=== PATIENT | female | born 1950 | race Caucasian/White ===

== ENCOUNTER → 2020-03-26 15:54 | Outpatient (BNVA) | payer MEDICARE, OTHER, SELFPAY | PROVIDERS: Family Provider Nurse Practitioner Family; PCP Nurse Practitioner Family; Visit Provider Nurse Practitioner Family | DX: I10 Essential (primary) hypertension (principal); E78.5 Hyperlipidemia, unspecified; M79.7 Fibromyalgia; G25.81 Restless legs syndrome; G25.0 Essential tremor; N32.81 Overactive bladder; G47.00 Insomnia, unspecified; J45.20 Mild intermittent asthma, uncomplicated; L72.3 Sebaceous cyst | CPT/HCPCS: 80053; 80061; 84443; 85025 ==

== ENCOUNTER → 2020-04-13 10:18 | Outpatient (BNVA) | payer MEDICARE, OTHER, SELFPAY | PROVIDERS: Family Provider Nurse Practitioner Family; PCP Nurse Practitioner Family; Visit Provider Nurse Practitioner Family | DX: R73.9 Hyperglycemia, unspecified (principal); R74.0 Nonspecific elevation of levels of transaminase and lactic acid dehydrogenase [LDH]; Z11.59 Encounter for screening for other viral diseases | CPT/HCPCS: 83036; 86705; 86706; 86709; 86803; 87340 ==

== ENCOUNTER 2020-05-01 09:12 | Outpatient (CLI) | payer MEDICARE, OTHER, SELFPAY ==
--- NOTE | 2020-05-01 09:30 | US_ITS ---
WS: [id number] ULTRASOUND ABDOMEN CLINICAL INFORMATION: elevated LFT COMPARISON: None. FINDINGS: Liver Size: Enlarged Craniocaudal length: 17.4 cm. Echogenicity: Fatty Surface nodularity: None. Mass (size and location): None. Bile ducts Intrahepatic ducts: Normal. Common bile duct diameter: 0.7 cm. Gallbladder Removed Pancreas Normal as visualized. Right kidney: Normal. Hydronephrosis: None. Size: 9.3 cm x 4.5 cm x 5.0 cm Abdominal aorta and IVC Visualized portions are normal. Ascites: None. US/US liver [id number] IMPRESSION: 1. Hepatomegaly with diffuse fatty infiltration. 2. Gallbladder has been removed. 3. Normal common bile duct. 4. No hydronephrosis in right kidney.
== END 2020-05-01 09:13 | disposition home or self-care (01) ==
LOC: RAD 09:13
PROVIDERS: PCP Nurse Practitioner Family; Visit Provider Nurse Practitioner Family
DX: R94.5 Abnormal results of liver function studies (principal); R16.0 Hepatomegaly, not elsewhere classified; K76.0 Fatty (change of) liver, not elsewhere classified; Z90.49 Acquired absence of other specified parts of digestive tract
CPT/HCPCS: 76705

== ENCOUNTER → 2020-05-17 10:27 | Outpatient (BNVA) | payer MEDICARE, OTHER, SELFPAY | PROVIDERS: PCP Nurse Practitioner Family; Visit Provider Nurse Practitioner Family | DX: R16.0 Hepatomegaly, not elsewhere classified (principal); K76.0 Fatty (change of) liver, not elsewhere classified | CPT/HCPCS: 80053; 82977 ==

== ENCOUNTER → 2020-07-17 08:38 | Outpatient (BNVA) | payer MEDICARE, OTHER, SELFPAY | PROVIDERS: PCP Nurse Practitioner Family; Visit Provider Nurse Practitioner Family | DX: E11.9 Type 2 diabetes mellitus without complications (principal); E78.5 Hyperlipidemia, unspecified; J45.20 Mild intermittent asthma, uncomplicated; I10 Essential (primary) hypertension; M79.7 Fibromyalgia; N32.81 Overactive bladder; G47.00 Insomnia, unspecified; G25.81 Restless legs syndrome; G25.0 Essential tremor; Z12.31 Encounter for screening mammogram for malignant neoplasm of breast; F41.9 Anxiety disorder, unspecified; F32.9 Major depressive disorder, single episode, unspecified; L72.3 Sebaceous cyst; R16.0 Hepatomegaly, not elsewhere classified | CPT/HCPCS: 80053; 80061; 83036; 84443; 85025 ==

== ENCOUNTER → 2020-09-28 10:40 | Outpatient (BNVA) | payer MEDICARE, OTHER, SELFPAY | PROVIDERS: PCP Nurse Practitioner Family; Visit Provider Nurse Practitioner Family | DX: E11.9 Type 2 diabetes mellitus without complications (principal); G47.00 Insomnia, unspecified; N32.81 Overactive bladder; G25.81 Restless legs syndrome; G25.0 Essential tremor; M79.7 Fibromyalgia; E78.5 Hyperlipidemia, unspecified; I10 Essential (primary) hypertension; J45.20 Mild intermittent asthma, uncomplicated; L72.3 Sebaceous cyst; R16.0 Hepatomegaly, not elsewhere classified; K76.0 Fatty (change of) liver, not elsewhere classified; F41.9 Anxiety disorder, unspecified; F32.9 Major depressive disorder, single episode, unspecified; Z12.31 Encounter for screening mammogram for malignant neoplasm of breast; G47.33 Obstructive sleep apnea (adult) (pediatric) | CPT/HCPCS: 80053; 80061; 84443; 85025 ==

== ENCOUNTER → 2020-12-26 09:42 | Outpatient (BNVA) | payer MEDICARE, OTHER, SELFPAY | PROVIDERS: PCP Nurse Practitioner Family; Visit Provider Nurse Practitioner Family | DX: E11.9 Type 2 diabetes mellitus without complications (principal); E78.5 Hyperlipidemia, unspecified; I10 Essential (primary) hypertension; J45.20 Mild intermittent asthma, uncomplicated; G47.33 Obstructive sleep apnea (adult) (pediatric); G47.00 Insomnia, unspecified; N32.81 Overactive bladder; G25.81 Restless legs syndrome; G25.0 Essential tremor; M79.7 Fibromyalgia; Z13.6 Encounter for screening for cardiovascular disorders; F41.9 Anxiety disorder, unspecified; F32.9 Major depressive disorder, single episode, unspecified; R16.0 Hepatomegaly, not elsewhere classified; K76.0 Fatty (change of) liver, not elsewhere classified | CPT/HCPCS: 80053; 80061; 83036; 84443; 85025 ==

== ENCOUNTER → 2021-04-09 11:55 | Outpatient (BNVA) | payer MEDICARE, OTHER, SELFPAY | PROVIDERS: PCP Nurse Practitioner Family; Visit Provider Nurse Practitioner Family | DX: E11.9 Type 2 diabetes mellitus without complications (principal); E78.5 Hyperlipidemia, unspecified; I10 Essential (primary) hypertension; M79.7 Fibromyalgia; N32.81 Overactive bladder | CPT/HCPCS: 80053; 80061; 83036; 84443; 85025 ==

== ENCOUNTER → 2021-05-08 13:34 | Outpatient (BNVA) | payer MEDICARE, OTHER, SELFPAY | PROVIDERS: PCP Nurse Practitioner Family; Referring Provider Nurse Practitioner Family; Visit Provider Podiatrist Foot & Ankle Surgery | DX: M79.673 Pain in unspecified foot (principal); M21.612 Bunion of left foot | CPT/HCPCS: 73630 ==

== ENCOUNTER → 2021-06-05 15:58 | Outpatient (BNVA) | payer MEDICARE, OTHER, SELFPAY | PROVIDERS: PCP Nurse Practitioner Family; Visit Provider Nurse Practitioner Family | DX: K76.0 Fatty (change of) liver, not elsewhere classified (principal) | CPT/HCPCS: 80053; 85025 ==

== ENCOUNTER 2021-06-13 06:29 | Observation (INO) | payer MEDICARE, OTHER, SELFPAY ==
[2021-06-13] VITALS (8 sets, daily range): BP systolic 125–159; BP diastolic 71–87; PULSE 73–90; RESP 15–18; TEMP 36.2–36.8; O2SAT 94–98; BMI 29.2
--- NOTE | 2021-06-13 06:35 | XRR_ITS ---
PROCEDURE INFORMATION: Exam: XR Chest Exam date and time: 06/13/2021 6:35 AM Age: 70 years old Clinical indication: Chest wall pain; Patient HX: Chest pain off and on this am TECHNIQUE: Imaging protocol: XR of the chest. Views: 1 view. COMPARISON: CR Chest 2 views* [id number] 06/26/2014 12:10 PM FINDINGS: Lungs: Unremarkable. No consolidation. Pleural spaces: Unremarkable. No pleural effusion. No pneumothorax. Heart/Mediastinum: Unremarkable. No cardiomegaly. Bones/joints: Unremarkable. XR/XR chest 1V portable [id number] IMPRESSION: No acute findings. Radiation Dose CTDIVOL = (mGy): DLP = (mGy-cm)
--- NOTE | 2021-06-13 06:35 | ECG_ITS ---
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 Measurements Intervals [place] Rate: 79 P: 59 [place]: 166 QRS: 73 QRSD: 100 T: 62 QT: 403 QTc: 465 Interpretive Statements SINUS RHYTHM Compared to ECG 07/17/2017 09:11:07 ST (T wave) deviation no longer present Early repolarization no longer present Electronically Signed On 06-14-2021 9:38:23 CDT by Ivett Cabrera M.D. [email or web address].Insane Logic/store/[id number] f
--- NOTE | 2021-06-13 06:44 | W.ED.CHESTPA ---
HPI - Chest Pain General: Chief Complaint: Chest Pain Stated Complaint: CP Time Seen by Provider: 06/13/21 06:30 History of Present Illness: HPI narrative: 70-year-old female presents to the emergency room via EMS with a complaint of chest pain. She woke up sometime in the night with chest pain around 530 this morning called EMS. She did take a single sublingual nitro from her 's prescription which relieved the chest pain with a 5 to 10 minutes of her taking it. She was diaphoretic nauseous and short of breath with the pain radiated up into the left shoulder. On arrival here she is pain-free. She denies any recent episodes of chest pain or discomfort no known history of coronary artery disease she does have a history of hypertension hyperlipidemia and diabetes mellitus she was previously treated for diabetes with oral antihyperglycemic's but lost 50 pounds and was able to come off of those. She does not take aspirin daily. MD complaint: chest pain and chest heaviness Pertinent past history: other (Hypertension diabetes mellitus hyperlipidemia) Onset (ago): hour(s) Timing of current episode: episodic and now resolved Onset: during rest Pain location: substernal and left chest Pain radiation: left shoulder Quality: sharp Relieving factors: nitroglycerin Exacerbating factors: nothing Associated symptoms: Reports diaphoresis, dyspnea and nausea; Deny abdominal pain, fever(s), leg edema, palpitations, sense of impending doom, syncope or vomiting Treatment prior to arrival: aspirin, nitroglycerin and oxygen Review of Systems Const: Reports: diaphoresis; Denies: fever(s) ENMT: Denies: throat pain, ear or mastoid pain, nasal discharge or nasal congestion Card: Denies: palpitations or syncope Resp: Reports: dyspnea GI: Reports: nausea; Denies: abdominal pain or vomiting : Denies: flank pain, difficulty voiding, dysuria, urinary frequency or urinary urgency Skin/Breast: Denies: rash or pruritus PFSH ED PFSH: Medical History (Updated 06/13/21 @ 13:52 by Branden Masterson MD) Anxiety and depression Asthma Chronic kidney disease Environmental allergies Essential tremor Fatty liver Fibromyalgia Hepatomegaly Hyperlipidemia Hypertension Insomnia Osteoarthritis Overactive bladder Restless leg Surgical History H/O section S/P bilateral cataract extraction S/P carpal tunnel release S/P cholecystectomy S/P hysterectomy S/P knee replacement S/P nasal surgery Family History Brother Myocardial infarct Hypertension Father Myocardial infarct Hypertension Mother CHF (congestive heart failure) Hypertension Liver disease Cancer Social History Smoking and tobacco status: former smoker Alcohol intake: never Lives independently: Yes Household members: spouse Housing: House Marital status: Pets and animals: No Physical Exam Const: COMMON NORMALS: no acute distress GENERAL APPEARANCE: cooperative and comfortable ORIENTATION/CONSCIOUSNESS: Yes awake, Yes oriented to person, Yes oriented to place and Yes oriented to time HENMT: COMMON NORMALS: normocephalic, atraumatic and hearing grossly normal bilaterally HEAD & SCALP: normocephalic and atraumatic Neck/C-Spine: COMMON NORMALS: no JVD Resp: COMMON NORMALS: normal respiratory effort, No retractions, No use of accessory muscles and clear to auscultation bilaterally AUSCULTATION: clear to auscultation bilaterally Cardio: COMMON NORMALS: no JVD, regular rate, regular rhythm and No murmurs present (Cardio) RATE: regular rate RHYTHM: regular rhythm GI: COMMON NORMALS: Soft to palpation and No hepatosplenomegaly present AUSCULTATION: Yes normoactive bowel sounds PALPATION: Yes Soft to palpation, No Tenderness to palpation present (GI), No Guarding due to palpation present (GI) and Yes No hepatosplenomegaly present Extremity: COMMON NORMALS: normal to inspection, capillary refill normal, no clubbing, cyanosis or edema, no calf tenderness and no pedal edema Neuro: SENSORIUM/ORIENTATION: Yes oriented to person, Yes oriented to place and Yes oriented to time Skin: COMMON NORMALS: no rashes or lesions noted GENERAL SKIN EXAM: no rashes or lesions noted Course Vital Signs: Vital signs: Vital Signs Temperature 97.5 F L 06/13/21 13:48 Pulse Rate 74 06/13/21 13:48 Respiratory Rate 15 06/13/21 13:48 Blood Pressure 125/71 06/13/21 13:48 Pulse Oximetry 98 06/13/21 13:48 MDM - Chest Pain MDM Narrative: Medical decision making narrative: Labs imaging and EKG reviewed as found on the chart. Chest pain relieved by nitro prior to arrival. Initial troponins negative EKG does not show any acute ST elevations. Working to go ahead and place patient on discussed with hospitalist orders written Lab Data: Labs: Lab Results 06/13/21 06/13/21 06/13/21 06:40 06:40 06:40 WBC 8.3 10^3/uL 10^3/ uL (4.0-10.0) RBC 4.99 10^6/uL 10^6 /uL (4.1-5.3) Hgb 15.3 g/dL g/dL (11.5-15.3) Hct 45.2 % % (37.0-47.0) MCV 90.6 fl fl (81-99) MCH 30.7 pg pg (28.0-34.0) MCHC 33.8 g/dL g/dL (30.0-36.0) RDW 13.1 % % (12.1-15.1) Plt Count 231 10^3/cmm 10^3 /cmm (130-400) MPV 9.5 fL fL (7.4-10.4) Neut % (Auto) 67.8 % % Lymph % (Auto) 19.5 % % [place] % (Auto) 9.2 % % Eos % (Auto) 2.3 % % Baso % (Auto) 0.6 % % Neut # (Auto) 5.65 10^3/uL 10^3 /uL (1.8-7.7) Lymph # (Auto) 1.6 10^3/uL 10^3/ uL (0.8-4.8) [place] # (Auto) 0.8 10^3/uL 10^3/ uL (0.2-0.9) Eos # (Auto) 0.2 10^3/uL 10^3/ uL (0.0-0.8) Baso # (Auto) 0.1 10^3/uL 10^3/ uL (0.0-0.1) Nucleated RBC % (a uto) 0 % % Nucleated RBCs # 0.0 /100WBC /100W BC Sodium 141 mmol/L mmol/L (136-145) Potassium 3.3 mmol/L L mmol /L (3.5-5.1) Chloride 101 mmol/L mmol/L (98-107) Carbon Dioxide 29 mmol/L mmol/L (22-29) Anion Gap 14.3 (5-19) BUN 14 mg/dL mg/dL (8-23) Creatinine 0.5 mg/dL mg/dL (0.5-0.9) GFR Calculation 122.3 mL/min mL/m in (90-130) Glucose 94 mg/dL mg/dL (65-115) POC Glucose Calculated Osmolal ity 292 mOsm/kg mOsm/ kg (285-295) Calcium 9.0 mg/dL mg/dL (8.5-10.5) Total Bilirubin 0.4 mg/dL mg/dL (0.15-1.2) AST 49 U/L H U/L (0-32) ALT 40 U/L H U/L (0-33) Alkaline Phosphata se 67 IU/L IU/L (35-105) Creatine Kinase 43 U/L U/L (26-192) Troponin T Baselin e 8 ng/L ng/L (0-10) Troponin T 120 Min [place] Troponin T Total Protein 7.0 g/dL g/dL (6.6-8.7) Albumin 4.0 g/dL g/dL (3.5-5.2) Globulin 3.0 g/dL g/dL (1.3-4.6) Urine Color Urine Appearance Urine pH Ur Specific Gravit y Urine Protein Urine Glucose (UA) Urine Ketones Urine Blood Urine Nitrate Urine Bilirubin Urine Urobilinogen Ur Leukocyte Nyasia ase 06/13/21 06/13/21 06/13/21 06:44 07:04 08:59 WBC RBC Hgb Hct MCV MCH MCHC RDW Plt Count MPV Neut % (Auto) Lymph % (Auto) [place] % (Auto) Eos % (Auto) Baso % (Auto) Neut # (Auto) Lymph # (Auto) [place] # (Auto) Eos # (Auto) Baso # (Auto) Nucleated RBC % (a uto) Nucleated RBCs # Sodium Potassium Chloride Carbon Dioxide Anion Gap BUN Creatinine GFR Calculation Glucose POC Glucose 98 mg/dL mg/dL (70-110) Calculated Osmolal ity Calcium Total Bilirubin AST ALT Alkaline Phosphata se Creatine Kinase Troponin T Baselin e Troponin T 120 Min [place] 6.23 ng/L ng/L (0-10) Delta Troponin T -1.77 ABS# L ABS# (0-10) Total Protein Albumin Globulin Urine Color Yellow (Yellow) Urine Appearance Clear (CLEAR) Urine pH 7 (5-7) Ur Specific Gravit y 1.010 (1.005-1.030) Urine Protein Neg (Negative) Urine Glucose (UA) Norm (Normal) Urine Ketones Negative (Negative) Urine Blood Neg (Negative) Urine Nitrate Negative (Negative) Urine Bilirubin Neg (Negative) Urine Urobilinogen Norm mg/dL mg/dL (Negative) Ur Leukocyte Nyasia ase Negative (Negative) Discharge Plan Discharge Patient Disposition: Placed in Observation Admit Provider: Branden Masterson Clinical Impression: Chest pain, Hypertension, Diabetes mellitus Coding Level of Care Code ED 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
[2021-06-13 06:46] LABS: Glucose Point of Care 98 mg/dL (70-110)
[2021-06-13 06:53] LABS: Basophils # 0.1 10^3/uL (0.0-0.1); Basophils % 0.6 %; Eosinophils # 0.2 10^3/uL (0.0-0.8); Eosinophils % 2.3 %; Hematocrit 45.2 % (37.0-47.0); Hemoglobin 15.3 g/dL (11.5-15.3); Lymphocytes # 1.6 10^3/uL (0.8-4.8); Lymphocytes % 19.5 %; Mean Corpuscular HGB Conc 33.8 g/dL (30.0-36.0); Mean Corpuscular Hemoglobin 30.7 pg (28.0-34.0); Mean Corpuscular Volume 90.6 fl (81-99); Mean Platelet Volume 9.5 fL (7.4-10.4); Monocytes # 0.8 10^3/uL (0.2-0.9); Monocytes % 9.2 %; Neutrophils # 5.65 10^3/uL (1.8-7.7); Neutrophils % 67.8 %; Nucleated Red Blood Cells % 0 %; Platelet Count 231 10^3/cmm (130-400); Red Blood Count 4.99 10^6/uL (4.1-5.3); Red Cell Distribution Width 13.1 % (12.1-15.1); White Blood Count 8.3 10^3/uL (4.0-10.0)
[2021-06-13 07:12] LABS: Alanine Aminotransferase 40 U/L (0-33); Alkaline Phosphatase 67 IU/L (35-105); Anion Gap 14.3 (5-19); Aspartate Amino Transferase 49 U/L (0-32); Blood Urea Nitrogen 14 mg/dL (8-23); Carbon Dioxide 29 mmol/L (22-29); Chloride 101 mmol/L (98-107); Creatine Phosphokinase 43 U/L (26-192); Creatinine Clr Calc Pharmacy 68.9111; Glomerular Filtration Rate 122.3 mL/min (90-130); Glucose 94 mg/dL (65-115); Osmolality Calculated 292 mOsm/kg (285-295); Potassium 3.3 mmol/L (3.5-5.1); Sodium 141 mmol/L (136-145); Total Bilirubin 0.4 mg/dL (0.15-1.2)
[2021-06-13 07:14] LABS: Troponin(5th) Baseline 8 ng/L (0-10)
[2021-06-13 07:42] LABS: Add Urine Microscopic? NO; Charge for UA Resulting for Rev
[2021-06-13 07:50] LABS: Bilirubin Urine Neg (Negative); Blood Urine Neg (Negative); Glucose Urine UA Norm (Normal); Ketones Urine Negative (Negative); Leukocyte Esterase Urine Negative (Negative); Nitrate Urine Negative (Negative); Protein Urine Neg (Negative); Urine Appearance Clear (CLEAR); Urine Color Yellow (Yellow); Urobilinogen Urine Norm (Negative); pH Urine 7 (5-7)
--- NOTE | 2021-06-13 08:35 | ECG_ITS ---
[facility] Test Date: 2021-06-13 Pat Name: Lisa Rivera Department: Room: Gender: Female Vp Scientific Affairs: : 1950 Requested By: Brett Shay Order Number: [id number] Maria Esther MD: Ivett Cabrera M.D. Measurements Intervals [place] Rate: 78 P: 70 AR: 176 QRS: 84 QRSD: 106 T: 69 QT: 415 QTc: 475 Interpretive Statements SINUS RHYTHM Compared to ECG 06/13/2021 06:33:42 No significant changes Electronically Signed On 06-14-2021 19:43:53 CDT by Ivett Cabrera M.D. [id number] f
[2021-06-13 09:41] LABS: Troponin 5 2HR 6.23 ng/L (0-10); Troponin 5 2HR Delta -1.77 ABS# (0-10)
--- NOTE | 2021-06-13 10:23 | PM.HP ---
Providers/Chief Complaint Primary Care Provider: MATTHEW Norman Chief Complaint: CP History of Present Illness Lisa Rivera is a 70 year old female who presents to the emergency department with chest discomfort. She states she was up during the night, went back to sleep, and was awoken with left-sided chest discomfort at 4- 5 AM. She states it was severe, nonradiating. She has not had discomfort like this before. Some nausea. Seem to improve with her 's nitroglycerin. Lasted approximately 1 hour. She reports she has no chest discomfort currently. Comments that she has quite a bit of stress taking care of her . No fever, history of Covid. She is vaccinated. No cough. No current shortness of breath. Occasional heartburn but nothing that is felt like this. She was given an aspirin in the emergency department. Review of Systems General: Reports: 10 or more systems reviewed and unremarkable except in HPI and below Const: Denies: fever(s) or chills Eyes: Denies: change in vision ENMT: Denies: throat pain Card: Reports: chest pain Resp: Denies: dyspnea, productive cough or non-productive cough GI: Reports: heartburn; Denies: abdominal pain, hematochezia or melena : Denies: flank pain Musc: Denies: neck pain Skin/Breast: Denies: rash Neuro: Denies: headache(s) Psych: Reports: anxiety Endo: Denies: polyuria Jose/Lymph: Denies: easy bruising All/Imm: Denies: urticaria Medications/Allergies Home Medications Medication Instructions Recorded Confirmed Last Taken Type cholecalciferol (vitamin D3) 25 25 mcg PO QAM 03/26/20 06/13/21 Unknown History mcg (1,000 unit) capsule cranberry 500 mg capsule 500 mg PO QAM cap 03/26/20 06/13/21 Unknown History garlic 1,000 mg capsule 1,000 mg PO QAM 03/26/20 06/13/21 Unknown History multivitamin with minerals 1 tab PO QAM 03/26/20 06/13/21 Unknown History turmeric root extract 500 mg 500 mg PO QAM 03/26/20 06/13/21 Unknown History capsule blood-glucose meter #1 ea 12/26/20 06/13/21 Unknown Rx lancets #100 ea 12/26/20 06/13/21 Unknown Rx albuterol sulfate 90 mcg/actuation 2 puff INHALATION Q6H PRN 90 Days 04/09/21 06/13/21 Unknown Rx aerosol inhaler #3 each Milk Thistle [place] Tabs 1 tab PO DAILY 06/13/21 06/13/21 Unknown History Remeron 15 mg PO BEDTIME 06/13/21 06/13/21 Unknown History amlodipine 10 mg PO QAM 06/13/21 06/13/21 Unknown History atorvastatin 20 mg PO BEDTIME 06/13/21 06/13/21 Unknown History duloxetine 120 mg PO QAM 06/13/21 06/13/21 Unknown History multivitamin 1 tab PO DAILY 06/13/21 06/13/21 Unknown History omega-3 fatty acids [[place] 3 Fish 1 cap PO QAM 06/13/21 06/13/21 Unknown History Oil] primidone 100 mg PO QAM 06/13/21 06/13/21 Unknown History ropinirole 0.25 mg PO BEDTIME 06/13/21 06/13/21 Unknown History tolterodine 8 mg PO QAM 06/13/21 06/13/21 Unknown History trazodone 50 mg PO BEDTIME 06/13/21 06/13/21 Unknown History Allergies Allergy/AdvReac Type Severity Reaction Status Date / Time adhesive tape Allergy Unknown Verified 06/13/21 10:57 codeine Allergy ALGY-Hives Verified 06/13/21 10:57 quinine Allergy ALGY-Chills Verified 06/13/21 10:57 tramadol Allergy ALGY-Wheezi Verified 06/13/21 10:57 ng PFSH Acute PFSH: Medical History (Updated 06/13/21 @ 13:52 by Branden Masterson MD) Anxiety and depression Asthma Chronic kidney disease Environmental allergies Essential tremor Fatty liver Fibromyalgia Hepatomegaly Hyperlipidemia Hypertension Insomnia Osteoarthritis Overactive bladder Restless leg Surgical History H/O section S/P bilateral cataract extraction S/P carpal tunnel release S/P cholecystectomy S/P hysterectomy S/P knee replacement S/P nasal surgery Family History Brother Myocardial infarct Hypertension Father Myocardial infarct Hypertension Mother CHF (congestive heart failure) Hypertension Liver disease Cancer Social History Smoking and tobacco status: former smoker Alcohol intake: never Lives independently: Yes Household members: spouse Housing: House Marital status: Pets and animals: No Vitals/I&O/Wt Last Vital Signs Temp 97.2 F L 06/13/21 06:32 Pulse 80 06/13/21 06:54 Resp 17 06/13/21 06:54 BP 155/78 06/13/21 06:54 Pulse Ox 97 06/13/21 06:54 Weight last 48 hrs Weight 65.771 kg Physical Exam Narrative: EXAM NARRATIVE: General exam is a white female, who reports she is pain-free and is in no apparent distress HEENT: Pupils equally round. Oropharynx is clear. Neck is supple no lymphadenopathy or thyromegaly Cardiovascular regular rate and rhythm without murmur, no S3 or S4 Lungs are clear no wheezing or crackles Abdomen is soft nontender with positive bowel sounds. No obvious organomegaly exam is deferred Extremities no cyanosis clubbing or edema, cap refill brisk. Skin no rash Neuro no focal deficits. Data : 06/13/21 06:40 06/13/21 06:40 Other data: AST and ALT are slightly high at 49 and 40. Alk phos is normal at 67 Troponin VIII with repeat of 6.2 Urinalysis negative Recent TSH normal Chest x-ray negative EKG demonstrates sinus rhythm, normal axis, no acute changes A&P Assessment and plan (1) Chest pain: Significant episode of chest discomfort lasting 1 hour. However, troponin within normal limits at baseline and 120 minutes. Telemetry Continue aspirin Continue statin Check echocardiogram Nuclear stress test in the morning Status: Acute (2) Diabetes mellitus: Diet controlled. Consistent carb diet. Status: Chronic (3) Fatty liver: Enzymes slightly high, as they have been intermittently in the past. No further investigation. Previous hepatitis panel negative. Previous cholecystectomy. Status: Acute (4) Hypertension: Continue home medications Status: Chronic (5) Hyperlipidemia: Continue statin Status: Chronic Qualifiers: Hyperlipidemia type: unspecified Qualified Code(s): E78.5 - Hyperlipidemia, unspecified Additional A&P Information Full code Lovenox for DVT prophylaxis Attestations Medical Necessity Statement*: Will need less than 2 midnight stay for evaluation and treatment of chest discomfort. 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
--- NOTE | 2021-06-13 11:03 | USCV_ITS ---
Lisa Rivera Age: 70 Gender: F : 1950 Exam Date: 06/13/2021 15:59 Ordering Phys: Branden Masterson MD Technologist: WILLIAMS Exam Location: [facility] [place] Indication: CHEST PAIN BP: / HR: 76 Rhythm: Sinus Technical Quality: Adequate MEASUREMENTS (Male / Female) Normal Values 2D ECHO LV Diastolic Diameter PLAX 3.2 cm 4.2 - 5.9 / 3.9 - 5.3 cm LV Systolic Diameter PLAX 2.2 cm IVS Diastolic Thickness 0.7 cm 0.6 - 1.0 / 0.6 - 0.9 cm IVS Systolic Thickness 0.7 cm LVPW Diastolic Thickness 1.0 cm 0.6 - 1.0 / 0.6 - 0.9 cm LVPW Systolic Thickness 1.5 cm LVOT Diameter 2.0 cm LV Ejection Fraction 2D Teich 63.3 % LV Ejection Fraction MOD 2C 61.1 % LV Ejection Fraction 2C AL 59.7 % LA Diameter 3.3 cm LA Width 2.7 cm LA Height 4.6 cm RA Width 3.0 cm RA Height 3.6 cm Aorta at Sinotubular Diameter 2.0 cm DOPPLER AV Peak Velocity 151.0 cm/s LVOT Peak Velocity 115.0 cm/s AV Area Cont Eq vti 2.4 cm squared AV Area Cont Eq pk 2.4 cm squared MV Area PHT 3.7 cm squared Mitral E to A Ratio 0.9 MV E' Velocity 45.0 cm/s Mitral E to MV E' Ratio 8.1 Mitral E to LV E' Lateral Ratio 9.2 Mitral E to LV E' Septal Ratio 7.3 TR Peak Velocity 229.3 cm/s TR Peak Gradient 21.0 mmHg TR Mean Velocity 199.5 cm/s TR Mean Gradient 16.1 mmHg TR Velocity Time Integral 66.5 cm Right Atrial Pressure 3.0 mmHg Pulmonary Artery Systolic Pressu 24.0 mmHg PV Peak Velocity 72.0 cm/s RV Acceleration Time 0.1 s RV Ejection Time 0.3 s RV AcT/ET 0.4 FINDINGS Left Ventricle Normal left ventricular size, systolic function and wall thickness, with no regional wall motion abnormalities. Left ventricular ejection fraction is estimated at 65-70 %. Normal diastolic function. Right Ventricle Normal right ventricular size and systolic function. Right ventricular systolic pressure 24 mmHg. Right Atrium Normal right atrial size. Right atrial pressure estimated at 3 mmHg. Left Atrium Normal left atrial size. Mitral Valve Mildly thickened mitral valve. No mitral valve stenosis. Mild mitral valve regurgitation. Aortic Valve Structurally normal trileaflet aortic valve. No aortic valve stenosis. No aortic valve regurgitation. Tricuspid Valve Structurally normal tricuspid valve. No tricuspid valve stenosis. Trace tricuspid valve regurgitation. Pulmonic Valve Structurally normal pulmonic valve. No pulmonary valve stenosis. Trace pulmonary valve regurgitation. Pericardium No pericardial effusion. Aorta Normal size aortic root and proximal ascending aorta. Normal- sized inferior vena cava with normal respiratory variation. CONCLUSIONS 1. Normal left ventricular size, systolic function and wall thickness, with no regional wall motion abnormalities. Left ventricular ejection fraction is estimated at 65-70 %. Normal diastolic function. 2. Normal right ventricular size and systolic function. 3. Right atrial pressure estimated at 3 mmHg. 4. Pulmonary artery pressure estimated at 24 mm Hg. 5. Mild mitral valve regurgitation. 6. No prior similar studies to compare. Ivett Cabrera MD (Electronically Signed) Final Date: 13 June 2021 18:12 S
--- NOTE | 2021-06-13 11:03 | ECG_ITS ---
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 Interpretive Statements NAME OF STUDY: LEXISCAN SESTAMIBI STRESS TEST INDICATION: Chest Pain PROCEDURE: At the baseline, the blood pressure was 138/74 mmHg, oxygen saturation 93% with a heart rate of 68 bpm. The electrocardiogram showed normal sinus rhythm, normal axis. The Lexiscan was infused over a period of 20 seconds. A total of 0.4 milligrams of Lexiscan was infused. The stress phase was continued for a total of 5 minutes. Heart rate at the end of the stress phase was 91 bpm, oxygen saturation 97% with a blood pressure of 89/51 mmHg. The EKG at the peak infusion revealed sinus rhythm with no significant ST-T wave changes. Sestamibi was injected 20 seconds after the Lexiscan infusion. Blood pressure at the end of the recovery phase was 106/58 mmHg, oxygen saturation 94% with a heart rate of 80 beats per minute. CONCLUSION: 1. Normal EKG response to LexiScan infusion. 2. No LexiScan induced chest pain or cardiac arrhythmia. 3. Normal blood pressure and heart rate response. 4. Sestamibi/sestamibi perfusion scan pending; see separate report. Electronically Signed On 06-14-2021 12:51:52 CDT by Ivett Cabrera M.D. [email or web address] [id number]
[2021-06-13] MEDS: pantoprazole DR 40 mg Tablet PO (14:08)
[2021-06-13] MEDS: potassium chloride ER 20 mEq Tablet 40 MEQ PO (14:08)
[2021-06-13] MEDS: enoxaparin 40 mg/0.4 mL Syringe SUBCUT (14:08)
[2021-06-13 14:30] LABS: Magnesium 2.1 mg/dL (1.7-2.3)
[2021-06-13 14:31] LABS: Troponin 5 6HR 7.29 ng/L (0-10)
[2021-06-13 14:33] LABS: Troponin 5 6HR Delta -0.71 ng/L (0-12)
[2021-06-13] MEDS: ropinirole 0.25 mg Tablet PO (21:25)
[2021-06-13] MEDS: atorvastatin 40 mg Tablet 20 MG PO (21:25)
[2021-06-13] MEDS: mirtazapine 15 mg Tablet PO (21:26)
[2021-06-13] MEDS: trazodone 100 mg Tablet 50 MG PO (21:27)
[2021-06-14] VITALS: BP 134/76; PULSE 78; RESP 17; TEMP 36.8; O2SAT 99
[2021-06-14 04:00] VITALS: BP 120/79; PULSE 68; RESP 18; TEMP 36.6
[2021-06-14 06:00] VITALS: PULSE 65
[2021-06-14 06:00] LABS: Basophils % 0.5 %; Eosinophils # 0.2 10^3/uL (0.0-0.8); Eosinophils % 2.9 %; Hematocrit 44.1 % (37.0-47.0); Hemoglobin 14.3 g/dL (11.5-15.3); Lymphocytes # 1.8 10^3/uL (0.8-4.8); Lymphocytes % 28.5 %; Mean Corpuscular HGB Conc 32.4 g/dL (30.0-36.0); Mean Corpuscular Hemoglobin 30.2 pg (28.0-34.0); Mean Platelet Volume 9.5 fL (7.4-10.4); Monocytes # 0.8 10^3/uL (0.2-0.9); Monocytes % 13.2 %; Neutrophils # 3.34 10^3/uL (1.8-7.7); Neutrophils % 54.6 %; Nucleated Red Blood Cells % 0 %; Platelet Count 221 10^3/cmm (130-400); Red Blood Count 4.74 10^6/uL (4.1-5.3); Red Cell Distribution Width 13.1 % (12.1-15.1); White Blood Count 6.1 10^3/uL (4.0-10.0)
[2021-06-14] MEDS: primidone 50 mg Tablet 100 MG PO (06:22)
[2021-06-14] MEDS: duloxetine 60 mg Capsule 120 MG PO (06:22)
[2021-06-14] MEDS: amlodipine 10 mg Tablet PO (06:22)
[2021-06-14 06:31] LABS: Alanine Aminotransferase 32 U/L (0-33); Albumin Level 3.5 g/dL (3.5-5.2); Alkaline Phosphatase 56 IU/L (35-105); Anion Gap 13.9 (5-19); Aspartate Amino Transferase 27 U/L (0-32); Blood Urea Nitrogen 18 mg/dL (8-23); Calcium 9.1 mg/dL (8.5-10.5); Carbon Dioxide 27 mmol/L (22-29); Chloride 104 mmol/L (98-107); Globulin 3.3 g/dL (1.3-4.6); Glomerular Filtration Rate 62.1 mL/min (90-130); Glucose 89 mg/dL (65-115); Osmolality Calculated 293 mOsm/kg (285-295); Potassium 3.9 mmol/L (3.5-5.1); Sodium 141 mmol/L (136-145); Total Bilirubin 0.6 mg/dL (0.15-1.2); Total Protein 6.8 g/dL (6.6-8.7)
--- NOTE | 2021-06-14 07:00 | NMCV_ITS ---
NM inocencia perf SPECT r/s* [id number] Lisa Rivera Age: 70 Gender: F : 1950 Exam Date: 06/14/2021 07:00 Ordering Phys: Branden Masterson MD Technologist: OLGA Lawton Exam Location: [facility] Indications: CHEST PAIN STRESS TEST Please see separate stress test report in [facility] for full findings IMAGE PROTOCOL Rest/Stress 1 Lexiscan Day Radiopharmaceutical Dose (mCi) Administration Site Administered by Rest: Tc-99m 10.9 IV OLGA Singh Sestamibi Stress:Tc-99m 32.9 IV OLGA Singh Sestamibi Rest: 14-Jun-2021 60 Discovery 630 Stress: 14-Jun-2021 30 Discovery 630 0.4mg Lexiscan. Images obtained in supine and prone position. SPECT RESULTS Technical Quality: Excellent Raw Data Analysis: Normal Image Corrections: No attenuation or motion correction applied Summed Stress Score: 0 Summed Rest Score: 3 Summed Difference Score: 0 PERFUSION FINDINGS Small sized patchy area of decreased tracer uptake in mid inferoseptal and apical lateral wall on rest images with improved tracer uptake on stress images. This is suggestive of attenuation artifact. FUNCTIONAL RESULTS (calculated via Gated SPECT) Stress Image LV EF (%): 76 Stress EDV (mL):58 TID: 1.07 Stress ESV (mL):14 FUNCTIONAL FINDINGS: The left ventricle is normal in size. Transient Ischemia Dilatation of 1.1. There is normal left ventricular systolic function. The left ventricular ejection fraction is normal with a value of 76%. There is normal LV thickening with no regional wall motion abnormality. Normal end-diastolic end-systolic volumes. IMPRESSIONS 1. Myocardial perfusion imaging is normal. 2. Overall left ventricular systolic function is normal without regional wall motion abnormalities. 3. The left ventricular ejection fraction is normal with a value of 76%. 4. No significant EKG changes with Lexiscan infusion. 5. No prior similar studies to compare. Ivett Cabrera MD (Electronically Signed) Final Date: 14 June 2021 12:52 S
[2021-06-14] MEDS: regadenoson 0.4 Mg/5 ml Syringe IVP (08:07)
[2021-06-14] MEDS: ondansetron 2 mg/ML SDV 2 mL 4 MG IVP (08:26)
[2021-06-14 08:31] VITALS: BP 106/58; PULSE 80
[2021-06-14] MEDS: pantoprazole DR 40 mg Tablet PO (09:29)
[2021-06-14] MEDS: aspirin 325 mg EC Tablet PO (09:29)
[2021-06-14 11:34] VITALS: BP 123/80; PULSE 100; RESP 18; TEMP 36; O2SAT 93
--- NOTE | 2021-06-14 13:01 | PM.DCS ---
Discharge Providers Date of Admission: 06/13/21 11:31 Date of Discharge: June 14, 2021 Attending Provider at Admission: Branden Masterson MD Attending Provider at Discharge: Branden Masterson MD Primary Care Provider: MATTHEW Norman Diagnoses at Discharge Discharge Diagnosis (1) Chest pain: Status: Acute (2) Diabetes mellitus: Status: Chronic (3) Fatty liver: Status: Acute (4) Hypertension: Status: Chronic (5) Hyperlipidemia: Status: Chronic Qualifiers: Hyperlipidemia type: unspecified Qualified Code(s): E78.5 - Hyperlipidemia, unspecified Reason for Visit Reason for Visit: CP Hospital Course Hospital Course Lisa is a 70-year-old white female who presented to the hospital with chest discomfort. Initial troponin was negative and EKG nonischemic. She had taken one of her husbands nitroglycerin that may have helped with the discomfort. She was admitted to the hospital and serial troponins were performed. All of these were negative. EKG demonstrated no ischemia. Echocardiogram was performed which demonstrated preserved EF, no wall motion abnormalities, mild mitral regurgitation. Nuclear stress test was performed which was essentially normal. As patient was chest pain-free on arrival to the emergency department, and had no recurrent chest discomfort in the hospital it was thought she could be discharged home. She is to return for any significant discomfort. Protonix was added to her regimen. Follow-up with her primary care provider 3 to 5 days. Physical Exam Narrative: EXAM NARRATIVE: General exam no apparent distress Neck is supple Cardiovascular regular rate and rhythm without murmur Lungs clear Abdomen is soft, positive bowel sounds Extremities no cyanosis clubbing or edema. Discharge Data Data Completed and Pending: Completed Studies During Hospitalization Category Date Time Status Sestamibi Stress Test Request Routi ne Exams 06/13/21 11:03 Completed XR chest 1V marvin ble [id number] Stat Exams 06/13/21 06:35 Completed NM inocencia perf SPECT r/s* [id number] Routin e Nuc Med 06/14/21 07:00 Completed CV. echo complete * [id number] Routine Ultrasound 06/13/21 11:03 Completed Labs from last 24 hours 06/14/21 06/14/21 06/13/21 05:20 05:20 13:20 WBC 6.1 RBC 4.74 Hgb 14.3 Hct 44.1 MCV 93.0 MCH 30.2 MCHC 32.4 RDW 13.1 Plt Count 221 MPV 9.5 Neut % (Auto) 54.6 Lymph % (Auto) 28.5 [place] % (Auto) 13.2 Eos % (Auto) 2.9 Baso % (Auto) 0.5 Neut # (Auto) 3.34 Lymph # (Auto) 1.8 [place] # (Auto) 0.8 Eos # (Auto) 0.2 Baso # (Auto) 0.0 Nucleated RBC % (a uto) 0 Nucleated RBCs # 0.0 Sodium 141 Potassium 3.9 Chloride 104 Carbon Dioxide 27 Anion Gap 13.9 BUN 18 Creatinine 0.9 GFR Calculation 62.1 L Glucose 89 Calculated Osmolal ity 293 Calcium 9.1 Magnesium 2.1 Total Bilirubin 0.6 AST 27 ALT 32 Alkaline Phosphata se 56 Troponin T Hi Sens 6Hr Troponin T Hi Sens 6Hr Delta Total Protein 6.8 Albumin 3.5 Globulin 3.3 06/13/21 13:20 WBC RBC Hgb Hct MCV MCH MCHC RDW Plt Count MPV Neut % (Auto) Lymph % (Auto) [place] % (Auto) Eos % (Auto) Baso % (Auto) Neut # (Auto) Lymph # (Auto) [place] # (Auto) Eos # (Auto) Baso # (Auto) Nucleated RBC % (a uto) Nucleated RBCs # Sodium Potassium Chloride Carbon Dioxide Anion Gap BUN Creatinine GFR Calculation Glucose Calculated Osmolal ity Calcium Magnesium Total Bilirubin AST ALT Alkaline Phosphata se Troponin T Hi Sens 6Hr 7.29 Troponin T Hi Sens 6Hr Delta -0.71 L Total Protein Albumin Globulin Vitals: Last Vital Signs Temp 96.8 F L 06/14/21 11:34 Pulse 100 06/14/21 11:34 Resp 18 06/14/21 11:34 BP 123/80 06/14/21 11:34 Pulse Ox 93 06/14/21 11:34 Discharge Plan Discharge Patient Disposition: Home Condition: Stable Prescriptions: New pantoprazole 40 mg Tablet,Delayed Release (Dr/Ec) 40 mg PO DAILY Qty: 30 RF: 0 Continued cholecalciferol (vitamin D3) 25 mcg (1,000 unit) capsule 25 mcg PO QAM RF: 0 garlic 1,000 mg capsule 1,000 mg PO QAM RF: 0 turmeric root extract 500 mg capsule 500 mg PO QAM RF: 0 cranberry 500 mg capsule 500 mg PO QAM RF: 0 multivitamin with minerals [Hair,Skin and Nails] Tablet 1 tab PO QAM RF: 0 (DME) lancets [Accu-Chek Multiclix Lancet] Misc See Rx Instructions .ROUTE .MEDSUPPLY Qty: 100 RF: 3 (DME) blood-glucose meter [Accu-Chek Julee Plus Meter] Misc See Rx Instructions .ROUTE .MEDSUPPLY Qty: 1 RF: 0 albuterol sulfate [ProAir HFA] 90 mcg/actuation HFA aerosol inhaler 2 puff INHALATION Q6H PRN (Reason: shortness of breath or wheezing) 90 Days Qty: 3 RF: 1 multivitamin Tablet 1 tab PO DAILY RF: 0 [place] 3 Fish Oil Capsule 1 cap PO QAM RF: 0 Milk Thistle [place] Tabs 1 tab PO DAILY RF: 0 primidone 50 mg tablet 100 mg PO QAM RF: 0 atorvastatin 10 mg tablet 20 mg PO BEDTIME RF: 0 tolterodine 4 mg capsule,extended release 24hr 8 mg PO QAM RF: 0 trazodone 100 mg tablet 50 mg PO BEDTIME RF: 0 ropinirole 0.25 mg tablet 0.25 mg PO BEDTIME RF: 0 amlodipine 10 mg tablet 10 mg PO QAM RF: 0 Remeron 15 mg tablet 15 mg PO BEDTIME RF: 0 duloxetine 60 mg capsule, delayed rel sprinkle 120 mg PO QAM RF: 0 Discharge Orders: Discharge Order (Routine); Ordered 06/14/21 Ordered By: Branden Masterson Referrals: Hanane Borden FNP-C [Primary Care Provider] - 4-7 days Discharge Diet: Diabetic Discharge Activity: Increase activity as tolerated Patient Instructions: Opioid Safety Activity Restrictions/Additional Instructions: Return for recurrent pain. Discharge Attestations Time Spent in Discharge Care*: greater than 30 min Quality Metrics Clinical Quality Measures During this hospital stay, did patient experience: None Coding Level of Care Code Acute [facility] note Diagnoses Chest pain R07.9 Diabetes mellitus E11.9 Fatty liver K76.0 Hypertension I10 Hyperlipidemia E78.5 Hyperlipidemia type: unspecified
--- NOTE | 2021-06-19 12:09 | PC.SOCIAL ---
discharge follow up call made, spoke with patient. she reports i'm fine, i feel good patient denies chest pain. patient hasn't received pantoprazole as of yet. patient didn't follow up with pcp today, she wasn't aware of appointment. she is out of town on vacation and will reschedule when she returns.
== END 2021-06-14 13:52 | disposition home or self-care (01) ==
LOC: ER 09:57 → MEDSURG 11:29
PROVIDERS: Admitting Provider Internal Medicine; Emergency Provider Family Medicine; PCP Nurse Practitioner Family; Visit Provider Internal Medicine
DX: R07.89 Other chest pain (principal); E11.9 Type 2 diabetes mellitus without complications; K76.0 Fatty (change of) liver, not elsewhere classified; I10 Essential (primary) hypertension; E78.5 Hyperlipidemia, unspecified; F41.9 Anxiety disorder, unspecified; F32.9 Major depressive disorder, single episode, unspecified; M79.7 Fibromyalgia; M19.90 Unspecified osteoarthritis, unspecified site; Z82.49 Family history of ischemic heart disease and other diseases of the circulatory system; Z87.891 Personal history of nicotine dependence
CPT/HCPCS: 36415; 36416; 71045; 78452; 80053; 81003; 82550; 82962; 83735; 84484; 85025; 93005; 93017; 93306; 96372; 96374; 99285; A9500; G0378; J1650; J2405; J2785

== ENCOUNTER → 2021-08-07 14:34 | Outpatient (BNVA) | payer MEDICARE, OTHER, SELFPAY | PROVIDERS: PCP Nurse Practitioner Family; Visit Provider Surgery | DX: Z20.822 Contact with and (suspected) exposure to COVID-19 (principal); Z11.52 Encounter for screening for COVID-19 | CPT/HCPCS: 87635 ==

== ENCOUNTER 2021-08-12 09:44 | Day surgery (SDC) | payer MEDICARE, OTHER, SELFPAY ==
[2021-08-08 09:09] VITALS: BMI 32.5
--- NOTE | 2021-08-12 09:56 | ANES.PREANE2 ---
Pre-Anesthetic Assessment Pre-Anesthetic Assessment: Height/Weight: Height 1.5 m Weight 73.028 kg Preop Diagnosis: chest pain Proposed Procedure: Operation Date: 08/12/21 11:30 Proposed Procedures p EGD/Colon 43492 R07.9(Not Applicable) - Berhane Stoll MD s Colonoscopy 38793 Z12.11(Not Applicable) - Berhane Stoll MD Familial anesthetic complications: None Was Beta Aelx taken within 24 hours: N/A Was Clonidine taken within 24 hours: N/A Last intake: > 8 hrs Social: Social History: No alcohol and No tobacco Exam: Pre-Anes Outpt Exam: alert, oriented x 3 and regular rate & rhythm Additional Exam Findings (including area of procedure): B/L wheeze Airway: Cervical ROM: WNL MP: 3 Dentition: False Pulmonary: Pulmonary: Asthma (exacerbated by cold weather out today - will give pre-op albuterol) and Sleep apnea CV/HEM: CV/HEM: HTN Hepatic: Comments: fatty liver GI: GI: GERD (ocasssional) Metabolic: Metabolic: Hyperlipidemia Anesthetic Plan: ASA status: 2 Anesthesia: MAC Risk of > 500 ml blood loss (7ml/kg in children): No PFSH Anesthesia PFSH: Medical History Anxiety and depression Asthma Chronic kidney disease Environmental allergies Essential tremor Fibromyalgia Hyperlipidemia Hypertension Insomnia Osteoarthritis Overactive bladder Restless leg Surgical History H/O section S/P bilateral cataract extraction S/P carpal tunnel release S/P cholecystectomy S/P hysterectomy S/P knee replacement S/P nasal surgery Status post colonoscopy Family History Brother Myocardial infarct Hypertension Father Myocardial infarct Hypertension Mother CHF (congestive heart failure) Hypertension Liver disease Cancer Social History Alcohol intake: never Lives independently: Yes Household members: spouse Housing: House Marital status: Pets and animals: No Data Anesthesia Cardiac Studies: Echocardiogram 06/13/21
[2021-08-12 10:35] VITALS: BP 161/96; PULSE 97; RESP 16; TEMP 36.8; O2SAT 96
[2021-08-12] MEDS: sodium chloride 0.9% 1,000 ML 30 ML IV (10:44)
--- NOTE | 2021-08-12 11:06 | W.PM.OPSFHP ---
Same Day Surgery H&P Indication for Procedure/HPI DATE OF PROCEDURE: August 12, 2021 CHIEF COMPLAINT/INDICATIONFOR SURGICAL PROCEDURE: egd/colonoscopy PREOP DIAGNOSIS: chest pain PLANNED PROCEDRUE: Operation Date: 08/12/21 11:30 Proposed Procedures p EGD/Colon 37407 R07.9(Not Applicable) - Berhane Stoll MD s Colonoscopy 14112 Z12.11(Not Applicable) - Berhane Stoll MD Medications/Allergies* Home Medications Medication Instructions Recorded Confirmed Type cholecalciferol (vitamin D3) 25 25 mcg PO QAM 03/26/20 08/12/21 History mcg (1,000 unit) capsule cranberry 500 mg capsule 500 mg PO QAM cap 03/26/20 08/12/21 History garlic 1,000 mg capsule 1,000 mg PO QAM 03/26/20 08/12/21 History multivitamin with minerals 1 tab PO QAM 03/26/20 08/12/21 History turmeric root extract 500 mg 500 mg PO QAM 03/26/20 08/12/21 History capsule Milk Thistle [place] Tabs 1 tab PO DAILY 06/13/21 08/12/21 History amlodipine 10 mg PO QAM 06/13/21 08/12/21 History atorvastatin 20 mg PO BEDTIME 06/13/21 08/12/21 History duloxetine 120 mg PO QAM 06/13/21 08/12/21 History multivitamin 1 tab PO DAILY 06/13/21 08/12/21 History omega-3 fatty acids 1 cap PO QAM 06/13/21 08/12/21 History primidone 100 mg PO QAM 06/13/21 08/12/21 History ropinirole 0.25 mg PO BEDTIME 06/13/21 08/12/21 History tolterodine 8 mg PO QAM 06/13/21 08/12/21 History trazodone 50 mg PO BEDTIME 06/13/21 08/12/21 History Allergies/Adverse Reactions Allergy/AdvReac Type Severity Reaction Status Date / Time adhesive tape Allergy Unknown Verified 08/12/21 10:29 codeine Allergy ALGY-Hives Verified 08/12/21 10:29 quinine Allergy ALGY-Chills Verified 08/12/21 10:29 tramadol Allergy ALGY-Wheezi Verified 08/12/21 10:29 ng Current Medications: Generic Name Dose Route Start Last Admin Trade Name Virgen PRN Reason Stop Dose Admin Sodium Chloride 1,000 mls @ 30 mls/hr 08/12/21 10:00 08/12/21 10:44 Sodium Chloride 0.9% IV 08/13/21 09:59 30 mls/hr .Q24H KINJAL Administration Pertinent History/Comorbid Conditions* Medical History (Updated 08/08/21 @ 13:34 by Dick Barrios DPM) Anxiety and depression Asthma Chronic kidney disease Environmental allergies Essential tremor Fibromyalgia Hyperlipidemia Hypertension Insomnia Osteoarthritis Overactive bladder Restless leg Surgical History (Updated 07/02/21 @ 15:05 by Berhane Stoll MD) H/O section S/P bilateral cataract extraction S/P carpal tunnel release S/P cholecystectomy S/P hysterectomy S/P knee replacement S/P nasal surgery Status post colonoscopy Family History (Updated 01/15/21 @ 12:49 by Rocio Christy RN) Liver disease Mother CHF (congestive heart failure) Mother Myocardial infarct Brother Father Cancer Mother Hypertension Brother Father Mother Social History Alcohol intake: never Lives independently: Yes Household members: spouse Housing: House Marital status: Pets and animals: No Pertinent Exam Findings alert, oriented x 3 and regular rate & rhythm Recommendations Surgery/Procedure today Coding Level of Care Code Acute Middleware Solutions Architect for Deonna Bell
[2021-08-12 12:19] VITALS: BP 146/87; PULSE 76; RESP 16; TEMP 36.3; O2SAT 93
[2021-08-12 12:30] VITALS: BP 137/79; PULSE 68; RESP 16; O2SAT 96
--- NOTE | 2021-08-12 12:33 | PC.NURSE ---
Called [employer] service for patients ride home.
[2021-08-12 12:36] VITALS: BP 147/80; PULSE 77; RESP 18; TEMP 36.3; O2SAT 95
--- NOTE | 2021-08-12 14:27 | ANE.PACU2 ---
Inpatient post-anesthesia follow up: Airway intact: Yes Vital signs: Temperature 97.3 F Pulse Rate 77 Respiratory Rate 18 Blood Pressure 147/80 Pulse Oximetry 95 Oxygen Delivery Me thod Room Air Oxygen Flow Rate 2 Fraction of Inspir ed Oxygen Hydration adequate: Yes Nausea and vomiting: No Pain level: 2 Mental status: Baseline
== END 2021-08-12 12:46 | disposition home or self-care (01) ==
PROVIDERS: PCP Nurse Practitioner Family; Visit Provider Surgery
PROC: 0DJ08ZZ Inspection of Upper Intestinal Tract, Via Natural or Artificial Opening Endoscopic (ICD-10-PCS; CPT 43235; principal; 2021-08-12 11:30)
PROC: 0DJD8ZZ Inspection of Lower Intestinal Tract, Via Natural or Artificial Opening Endoscopic (ICD-10-PCS; CPT 45378; 2021-08-12 11:30)
DX: Z12.11 Encounter for screening for malignant neoplasm of colon (principal); K57.30 Diverticulosis of large intestine without perforation or abscess without bleeding; K29.60 Other gastritis without bleeding; R07.9 Chest pain, unspecified; I12.9 Hypertensive chronic kidney disease with stage 1 through stage 4 chronic kidney disease, or unspecified chronic kidney disease; N18.9 Chronic kidney disease, unspecified; Z88.5 Allergy status to narcotic agent; Z90.49 Acquired absence of other specified parts of digestive tract; Z82.49 Family history of ischemic heart disease and other diseases of the circulatory system
CPT/HCPCS: 43239; 45378; 88305; 96360; 96361; J2704; J7030

== ENCOUNTER → 2021-09-03 11:13 | Outpatient (BNVA) | payer MEDICARE, OTHER, SELFPAY | PROVIDERS: PCP Nurse Practitioner Family; Visit Provider Nurse Practitioner Family | DX: E78.5 Hyperlipidemia, unspecified (principal) | CPT/HCPCS: 80053; 80061; 83036; 84443; 85025 ==

== ENCOUNTER 2021-12-05 08:50 | Outpatient (CLI) | payer OTHER, SELFPAY ==
--- NOTE | 2021-12-05 08:57 | MM_ITS ---
WS: [id number] BILATERAL SCREENING 3D TOMOSYNTHESIS DIGITAL MAMMOGRAM WITH CAD HISTORY: SCREENING COMPARISON: 04/03/2016 and 02/20/2015 Bilateral CC and MLO views submitted. Computer aided detection analyzed. Breast composition: There are scattered areas of fibroglandular density. No suspicious masses, microc alcifications or architectural distortion. Benign stable rodlike calcifications in each breast. MM/[place] [id number] IMPRESSION: BI-RADS: 2-Benign FOLLOW UP: 1 Year Follow-up
== END 2021-12-05 08:51 | disposition home or self-care (01) ==
LOC: RADSHAW 08:50
PROVIDERS: PCP Nurse Practitioner Family; Visit Provider Nurse Practitioner Family
DX: Z12.31 Encounter for screening mammogram for malignant neoplasm of breast (principal)
CPT/HCPCS: 77063; 77067

== ENCOUNTER 2021-12-17 16:32 | Emergency (ER) | payer OTHER, SELFPAY ==
[2021-12-17 17:13] VITALS: BP 150/84; PULSE 101; RESP 18; TEMP 37.1; O2SAT 94; BMI 38.3
--- NOTE | 2021-12-17 17:39 | ED_ITS ---
HPI - Head Injury General: Chief complaint: Head Injury Stated complaint: head injury Time Seen by Provider: 12/17/21 17:17 History of Present Illness: Patient was mowing her lawn with a push mower and had her head down and she ran into the air conditioner that was sticking out the window. Patient has laceration. Patient desiring tetanus shot. Patient has a headache. Patient denies any nausea vomiting or neurological changes. Denies neck pain or other injuries.. Associated symptoms: Deny nausea, neck pain or vomiting Review of Systems Narrative: Has laceration scalp after running into an air conditioner while she was walking. Const: Denies: fever(s), chills or body aches Eyes: Denies: eye discomfort ENMT: Denies: throat pain Card: Denies: chest pain Resp: Denies: dyspnea GI: Denies: abdominal pain, nausea or vomiting Musc: Denies: neck pain or back pain Skin/Breast: Reports: other (Laceration frontal scalp no active bleeding.); Denies: rash Neuro: Reports: headache(s); Denies: numbness in extremities, weakness in extremities, lack of coordination, difficulty walking, dizziness or Slurred speech present Psych: Denies: depression or suicidal ideation PFSH ED PFSH: Medical History Anxiety and depression Asthma Chronic kidney disease Environmental allergies Essential tremor Fibromyalgia Hyperlipidemia Hypertension Insomnia Osteoarthritis Overactive bladder Restless leg Surgical History H/O section H/O esophagogastroduodenoscopy (08/12/21) S/P bilateral cataract extraction S/P carpal tunnel release S/P cholecystectomy S/P hysterectomy S/P knee replacement S/P nasal surgery Status post colonoscopy (08/12/21) Family History Brother Myocardial infarct Hypertension Father Myocardial infarct Hypertension Mother CHF (congestive heart failure) Hypertension Liver disease Cancer Social History Smoking and tobacco status: former smoker Alcohol intake: never Lives independently: Yes Household members: spouse Housing: House Marital status: Pets and animals: No Physical Exam Const: COMMON NORMALS: no acute distress, patient oriented x3 and alert HENMT: COMMON NORMALS: normocephalic and external ears normal HEAD & SCALP: normocephalic EXTERNAL EAR: Yes external ears normal Eye: COMMON NORMALS: Equal, round and reactive pupils present and EOMs intact bilaterally ALIGNMENT: Yes alignment normal PUPIL: Yes Equal, round and reactive pupils present Neck/C-Spine: COMMON NORMALS: no JVD Resp: COMMON NORMALS: normal respiratory effort and No use of accessory muscles Cardio: COMMON NORMALS: no JVD GI: INSPECTION: Yes normal to inspection Extremity: COMMON NORMALS: normal to inspection and full ROM Neuro: COMMON NORMALS: patient oriented x3 SENSORIUM/ORIENTATION: Yes alert Psych: COMMON NORMALS: mental status grossly normal Skin: COMMON NORMALS: no rashes or lesions noted NARRATIVE SKIN EXAM: Superficial V shaped laceration to scalp near hairline left side with no active bleeding. Wound been cleaned and and a skin adhesive was applied. GENERAL SKIN EXAM: no rashes or lesions noted Procedures Laceration Laceration 1: Site: scalp Side (If applicable): left Size (cm): 2 Description: irregular Depth: simple, single layer Skin layer closed with: other (Skin adhesive) Course Vital Signs: Vital signs: Vital Signs Temperature 98.8 F 12/17/21 17:13 Pulse Rate 101 H 12/17/21 17:13 Respiratory Rate 18 12/17/21 17:13 Blood Pressure 150/84 12/17/21 17:13 Pulse Oximetry 94 12/17/21 17:13 MDM - Head Injury Medcial Decision Making Laceration. Closed with skin adhesive. Discharge Plan Discharge Patient Disposition: Home Clinical Impression: Laceration Condition: Stable Prescriptions: No Action cholecalciferol (vitamin D3) 25 mcg (1,000 unit) capsule 25 mcg PO QAM 0RF garlic 1,000 mg capsule 1,000 mg PO QAM 0RF turmeric root extract 500 mg capsule 500 mg PO QAM 0RF cranberry 500 mg capsule 500 mg PO QAM 0RF Rx Instructions: administer with meals multivitamin with minerals [Hair,Skin and Nails] Tablet 1 tab PO QAM 0RF (DME) lancets [Accu-Chek Multiclix Lancet] Misc See Rx Instructions .ROUTE .MEDSUPPLY Qty: 100 3RF Rx Instructions: once daily (DME) blood-glucose meter [Accu-Chek Julee Plus Meter] [facility] [place] See Rx Instructions .ROUTE .MEDSUPPLY Qty: 1 0RF Rx Instructions: once daily balance of nature PO 0RF amlodipine 10 mg tablet 10 mg PO QAM Qty: 90 4RF atorvastatin 20 mg tablet 20 mg PO BEDTIME Qty: 90 4RF albuterol sulfate [ProAir HFA] 90 mcg/actuation HFA aerosol inhaler 2 puff INHALATION Q6H PRN (Reason: shortness of breath or wheezing) 90 Days Qty: 3 1RF gabapentin 300 mg capsule 300 mg PO TID Qty: 90 0RF lidocaine 5 % cream 1 applic topical TID PRN (Reason: pain) Qty: 30 0RF furosemide 20 mg tablet 20 mg PO DAILY Qty: 7 0RF tolterodine 4 mg capsule,extended release 24hr 8 mg PO QAM Qty: 90 0RF ropinirole 0.25 mg tablet 0.25 mg PO BEDTIME Qty: 90 0RF primidone 50 mg tablet 100 mg PO QAM Qty: 90 0RF nitroglycerin 0.4 mg tablet, sublingual 0.4 mg sublingual Q5M PRN (Reason: chest pain) Qty: 30 2RF Rx Instructions: do not exceed 3 doses per episode pantoprazole 40 mg tablet,delayed release (DR/EC) 40 mg PO DAILY Qty: 90 0RF duloxetine 60 mg capsule, delayed rel sprinkle 120 mg PO QAM Qty: 90 0RF mirtazapine 30 mg tablet 30 mg PO BEDTIME Qty: 90 1RF (DME) cpap supply See Rx Instructions .Route .MEDSUPPLY Qty: 1 5RF Rx Instructions: As directed cpap supplies losartan 50 mg tablet 50 mg PO DAILY Qty: 90 3RF multivitamin Tablet 1 tab PO DAILY 0RF omega-3 fatty acids Capsule 1 cap PO QAM 0RF Milk Thistle [place] Tabs 1 tab PO DAILY 0RF Discharge Orders: Discharge ED (Routine); Ordered 12/17/21 Ordered By: Júnior Stratton Referrals: Hanane Borden FNP-C [Primary Care Provider] - Discharge Diet: Usual diet Discharge Activity: Resume usual activity Patient Instructions: Skin Adhesive Care (ED) Coding Level of Care Code ED Deputy Probation Officer for Chg Ray
== END 2021-12-17 17:39 | disposition home or self-care (01) ==
PROVIDERS: Emergency Provider Nurse Practitioner Family; PCP Nurse Practitioner Family
DX: S01.01XA Laceration without foreign body of scalp, initial encounter (principal); W22.8XXA Striking against or struck by other objects, initial encounter
CPT/HCPCS: 99282

== ENCOUNTER 2021-12-22 17:53 | Emergency (ER) | payer MEDICARE, OTHER, SELFPAY ==
[2021-12-22 17:59] VITALS: BP 146/95; PULSE 106; RESP 24; TEMP 36.4; O2SAT 98; BMI 38.3
--- NOTE | 2021-12-22 18:16 | W.ED.FALL ---
HPI - Fall General: Chief Complaint: Fall Stated Complaint: fall, cut up pretty bad Time Seen by Provider: 12/22/21 18:07 [facility] ED PFSH: Medical History Anxiety and depression Asthma Chronic kidney disease Environmental allergies Essential tremor Fibromyalgia Hyperlipidemia Hypertension Insomnia Osteoarthritis Overactive bladder Restless leg Surgical History H/O section H/O esophagogastroduodenoscopy (08/12/21) S/P bilateral cataract extraction S/P carpal tunnel release S/P cholecystectomy S/P hysterectomy S/P knee replacement S/P nasal surgery Status post colonoscopy (08/12/21) Family History Brother Myocardial infarct Hypertension Father Myocardial infarct Hypertension Mother CHF (congestive heart failure) Hypertension Liver disease Cancer Social History Smoking and tobacco status: former smoker Alcohol intake: never Lives independently: Yes Household members: spouse Housing: House Marital status: Pets and animals: No Course Vital Signs: Vital signs: Vital Signs Temperature 97.6 F 12/22/21 17:59 Pulse Rate 106 H 12/22/21 17:59 Respiratory Rate 24 H 12/22/21 17:59 Blood Pressure 146/95 12/22/21 17:59 Pulse Oximetry 98 12/22/21 17:59 Discharge Plan Discharge Condition: Stable Prescriptions: No Action cholecalciferol (vitamin D3) 25 mcg (1,000 unit) capsule 25 mcg PO QAM 0RF garlic 1,000 mg capsule 1,000 mg PO QAM 0RF turmeric root extract 500 mg capsule 500 mg PO QAM 0RF cranberry 500 mg capsule 500 mg PO QAM 0RF Rx Instructions: administer with meals multivitamin with minerals [Hair,Skin and Nails] Tablet 1 tab PO QAM 0RF (DME) lancets [Accu-Chek Multiclix Lancet] Misc See Rx Instructions .ROUTE .MEDSUPPLY Qty: 100 3RF Rx Instructions: once daily (DME) blood-glucose meter [Accu-Chek Julee Plus Meter] Misc See Rx Instructions .ROUTE .MEDSUPPLY Qty: 1 0RF Rx Instructions: once daily balance of nature PO 0RF amlodipine 10 mg tablet 10 mg PO QAM Qty: 90 4RF atorvastatin 20 mg tablet 20 mg PO BEDTIME Qty: 90 4RF albuterol sulfate [ProAir HFA] 90 mcg/actuation HFA aerosol inhaler 2 puff INHALATION Q6H PRN (Reason: shortness of breath or wheezing) 90 Days Qty: 3 1RF gabapentin 300 mg capsule 300 mg PO TID Qty: 90 0RF lidocaine 5 % cream 1 applic topical TID PRN (Reason: pain) Qty: 30 0RF furosemide 20 mg tablet 20 mg PO DAILY Qty: 7 0RF tolterodine 4 mg capsule,extended release 24hr 8 mg PO QAM Qty: 90 0RF ropinirole 0.25 mg tablet 0.25 mg PO BEDTIME Qty: 90 0RF primidone 50 mg tablet 100 mg PO QAM Qty: 90 0RF nitroglycerin 0.4 mg tablet, sublingual 0.4 mg sublingual Q5M PRN (Reason: chest pain) Qty: 30 2RF Rx Instructions: do not exceed 3 doses per episode pantoprazole 40 mg tablet,delayed release (DR/EC) 40 mg PO DAILY Qty: 90 0RF duloxetine 60 mg capsule, delayed rel sprinkle 120 mg PO QAM Qty: 90 0RF mirtazapine 30 mg tablet 30 mg PO BEDTIME Qty: 90 1RF (DME) cpap supply See Rx Instructions .Route .MEDSUPPLY Qty: 1 5RF Rx Instructions: As directed cpap supplies losartan 50 mg tablet 50 mg PO DAILY Qty: 90 3RF multivitamin Tablet 1 tab PO DAILY 0RF omega-3 fatty acids Capsule 1 cap PO QAM 0RF Milk Thistle [place] Tabs 1 tab PO DAILY 0RF Referrals: Hanane Borden FNP-C [Primary Care Provider] - Coding Level of Care Code ED Machine Design Teacher for Deonna Bell
--- NOTE | 2021-12-22 18:25 | CTR_ITS ---
PROCEDURE INFORMATION: Exam: CT Maxillofacial Without Contrast Exam date and time: 12/22/2021 7:25 PM Age: 71 years old Clinical indication: Injury or trauma; Blunt trauma (contusions or hematomas); Patient HX: Fall into landscaping rocks hitting R side of body/r maxilla; Additional info: Fall with contusion maxillary face TECHNIQUE: Imaging protocol: Computed tomography images of the face without contrast. Radiation optimization: All CT scans at this facility use at least one of these dose optimization techniques: automated exposure control; mA and/or kV adjustment per patient size (includes targeted exams where dose is matched to clinical indication); or iterative reconstruction. COMPARISON: CT head wo con* [id number] 12/22/2021 7:23 PM RADIATION DOSE METRICS: Total DLP (mGy-cm): 643.23 FINDINGS: Orbital cavities: The patient has had bilateral lens replacement surgery. Bones/joints: No acute fracture. Paranasal sinuses: Mucosal thickening in the ethmoid and maxillary sinuses. Soft tissues: There is mild right facial and periorbital soft tissue swelling. Nasal cavity: Patient has had bilateral antral windows. CT/CT facial bones wo con* [id number] IMPRESSION: No acute bony injury.
--- NOTE | 2021-12-22 18:25 | CTR_ITS ---
PROCEDURE INFORMATION: Exam: CT Cervical Spine Without Contrast Exam date and time: 12/22/2021 7:28 PM Age: 71 years old Clinical indication: Injury or trauma; Blunt trauma; Patient HX: Fall into landscaping rocks hitting R side of body C/O rue/neck pain; Additional info: Fall with head injury TECHNIQUE: Imaging protocol: Computed tomography images of the cervical spine without contrast. Radiation optimization: All CT scans at this facility use at least one of these dose optimization techniques: automated exposure control; mA and/or kV adjustment per patient size (includes targeted exams where dose is matched to clinical indication); or iterative reconstruction. COMPARISON: MRI Cervical Spine w/o* [id number] 06/07/2018 9:08 AM RADIATION DOSE METRICS: Total DLP (mGy-cm): 688.88 FINDINGS: Vertebrae: There are mild degenerative changes present. Normal alignment. No acute fractures. Soft tissues: Unremarkable. Lungs: Lung apices are normal. CT/CT cervical spin wo con* [id number] IMPRESSION: No acute injury.
--- NOTE | 2021-12-22 18:25 | CTR_ITS ---
PROCEDURE INFORMATION: Exam: CT Head Without Contrast Exam date and time: 12/22/2021 7:23 PM Age: 71 years old Clinical indication: Injury or trauma; Blunt trauma (contusions or hematomas); Without loss of consciousness; Patient HX: Fall into landscaping rocks hitting R side of body - loc; Additional info: Fall with injury to head, no loc TECHNIQUE: Imaging protocol: Computed tomography of the head without contrast. Radiation optimization: All CT scans at this facility use at least one of these dose optimization techniques: automated exposure control; mA and/or kV adjustment per patient size (includes targeted exams where dose is matched to clinical indication); or iterative reconstruction. COMPARISON: MRI Cervical Spine w/o* [id number] 06/07/2018 9:08 AM RADIATION DOSE METRICS: Total DLP (mGy-cm): 743.27 FINDINGS: Brain: Normal. No hemorrhage. Unremarkable white matter. No mass effect. Cerebral ventricles: No ventriculomegaly. Paranasal sinuses: Mucosal thickening in the ethmoid and maxillary sinuses. Mastoid air cells: Visualized mastoid air cells are well aerated. Orbital cavities: The patient has had bilateral lens replacement surgery. Vasculature: Carotid atherosclerotic calcification. Bones/joints: Unremarkable. No acute fracture. Soft tissues: There is mild right periorbital soft tissue swelling. CT/CT head wo con* [id number] IMPRESSION: No acute intracranial injury. Facial findings described in the maxillofacial CT report.
--- NOTE | 2021-12-22 18:25 | XRR_ITS ---
PROCEDURE INFORMATION: Exam: XR Right Shoulder Exam date and time: 12/22/2021 6:34 PM Age: 71 years old Clinical indication: Injury or trauma; Fall; Blunt trauma (contusions or hematomas); Shoulder; Right; Additional info: Fall injury TECHNIQUE: Imaging protocol: XR Right shoulder. Views: 2 or more views. COMPARISON: CR XR chest 1V portable [id number] 06/13/2021 6:55 AM FINDINGS: Bones/joints: Normal. Soft tissues: Normal. XR/XR shoulder RT min 2V* [id number] IMPRESSION: No acute findings.
--- NOTE | 2021-12-22 18:27 | XRR_ITS ---
PROCEDURE INFORMATION: Exam: XR Right Humerus Exam date and time: 12/22/2021 6:36 PM Age: 71 years old Clinical indication: Injury or trauma; Fall; Laceration; Arm, upper; Right; Additional info: Upper arm pain after fall TECHNIQUE: Imaging protocol: XR Right humerus. Views: 2 or more views. COMPARISON: CR (CHEST, ) 12/22/2021 6:34 PM FINDINGS: Bones/joints: Normal. Soft tissues: Normal. XR/[place] [id number] IMPRESSION: No acute findings.
--- NOTE | 2021-12-22 18:28 | ED_ITS ---
HPI - Fall General: Chief Complaint: Fall Stated Complaint: fall, cut up pretty bad Time Seen by Provider: 12/22/21 18:07 History of Present Illness: Patient is a 71-year-old female comes to the ED with a fall. Injury occurred just prior to arrival. She was walking down her front porch steps and got to the last step and lost her balance and fell forward. She landed on the sidewalk and landscape rock. Patient endorses hitting the right side of her head and face on landscape rocks but denies any loss of consciousness. She does have some bruising to the right maxillary side of face and tenriism region of head. Denies any headache currently. Endorses some mild neck pain. She has multiple skin tears on right upper arm along with some abrasions to left forearm and right lower leg. She has a laceration to the palm of right hand. She is ambulatory with no pain and denies any hip pain. She she endorses 8 out of 10 pain in right shoulder and upper arm. Some movements of right arm worsen pain. Denies any chest pain, shortness of breath, abdominal pain or back pain. Patient is up-to-date on her tetanus. Associated symptoms-after fall: Reports neck pain; Denies abdominal pain, chest pain, headache(s) or hematuria Review of Systems Const: Denies: fever(s), chills or fatigue Eyes: Denies: change in vision or eye discomfort ENMT: Denies: throat pain, odynophagia, nasal discharge or nasal congestion Card: Denies: chest pain, palpitations, edema, swelling of feet/ankles, dyspnea on exertion or orthopnea Resp: Denies: dyspnea, productive cough or non-productive cough GI: Denies: abdominal pain, nausea, vomiting, diarrhea, constipation or hematochezia : Denies: flank pain, dysuria or hematuria Musc: Reports: neck pain, extremity pain (Right shoulder and upper arm) and extremity swelling (Right shoulder and upper arm); Denies: back pain Skin/Breast: Reports: new lesions (Multiple skin tears, abrasions and 1 laceration right hand); Denies: rash Neuro: Denies: headache(s), numbness in extremities or weakness in extremities PFS ED 2 PFSH: Medical History Anxiety and depression Asthma Chronic kidney disease Environmental allergies Essential tremor Fibromyalgia Hyperlipidemia Hypertension Insomnia Osteoarthritis Overactive bladder Restless leg Surgical History H/O section H/O esophagogastroduodenoscopy (08/12/21) S/P bilateral cataract extraction S/P carpal tunnel release S/P cholecystectomy S/P hysterectomy S/P knee replacement S/P nasal surgery Status post colonoscopy (08/12/21) Family History Brother Myocardial infarct Hypertension Father Myocardial infarct Hypertension Mother CHF (congestive heart failure) Hypertension Liver disease Cancer Social History Smoking and tobacco status: former smoker Alcohol intake: never Lives independently: Yes Household members: spouse Housing: House Marital status: Pets and animals: No Physical Exam Const: COMMON NORMALS: patient oriented x3 and alert GENERAL APPEARANCE: cooperative HENMT: COMMON NORMALS: normocephalic and Normal external nose present HEAD & SCALP: normocephalic NOSE: Normal external nose present; no Epistaxis present MOUTH: Normal oral and palatal mucosa present THROAT: posterior oropharynx normal and uvula midline OTHER: Patient has some ecchymosis to right maxillary region of face along with right tenriism region of head. Eye: COMMON NORMALS: Equal, round and reactive pupils present, EOMs intact bilaterally and conjunctivae normal CONJUNCTIVA: Yes conjunctivae normal PUPIL: Yes Equal, round and reactive pupils present Neck/C-Spine: COMMON NORMALS: supple GENERAL: Yes normal visual inspection CERVICAL SPINE: No Cervical spine tenderness and Yes Paracervical muscle tenderness bilateral Resp: COMMON NORMALS: normal respiratory effort, No retractions, No use of accessory muscles and clear to auscultation bilaterally AUSCULTATION: clear to auscultation bilaterally Cardio: COMMON NORMALS: regular rate, regular rhythm, S1 normal heart sound present, S2 normal heart sound present, No gallops present (Cardio), No clicks present (Cardio), No murmurs present (Cardio) and Peripheral pulses 2+ throughout RATE: regular rate RHYTHM: regular rhythm HEART SOUNDS: S1 normal heart sound present and S2 normal heart sound present PERIPHERAL PULSES: Peripheral pulses 2+ throughout GI: COMMON NORMALS: Normal to inspection, nondistended, normoactive bowel sounds present, Soft to palpation, non-tender and no masses PALPATION: Yes Soft to palpation : COMMON NORMALS: Yes no CVA tenderness BLADDER/KIDNEY EXAM: Yes no CVA tenderness Back/Pelvis: COMMON NORMALS: no CVA tenderness Extremity: NARRATIVE EXTREMITY EXAM: Right shoulder?tenderness to palpation throughout shoulder. Limited range of motion due to pain. Neurovascular tact. Some swelling in right upper arm noted. Multiple superficial skin tears to right upper arm. All other upper and lower extremities appear normal and she endorses no pain with range of motion. GENERAL: Yes normal exam except as noted Neuro: COMMON NORMALS: patient oriented x3, CN's II-XII intact bilaterally, moves all extremities, no focal motor deficits and no sensory deficits noted SENSORIUM/ORIENTATION: Yes alert SPEECH: speech normal GAIT: Yes Normal gait present SENSORY EXAM: Yes extremities (intact) MOTOR EXAM: 5/5 motor strength present throughout Skin: NARRATIVE SKIN EXAM: Right hand?2 cm flap-like laceration to palm of hand. No active bleeding noted. Patient has multiple skin tears on right upper arm and also 1 skin tear on left forearm. She also has a superficial abrasion to right lower leg. GENERAL SKIN EXAM: dry skin Procedures Laceration Laceration 1: Site: hand (Palm) Side (If applicable): right Size (cm): 2 Description: flap Depth: simple, single layer Local Anesthetic: lidocaine 1% Amount of anesthesia used (mL): 8 Pre-repair: irrigated extensively (Performed by nurse- normal saline and beta iodine) Skin layer closed with: nylon Size (cm): 4-0 Number of sutures: 9 Technique: simple, interrupted Course Vital Signs: Vital signs: Vital Signs Temperature 97.6 F 12/22/21 17:59 Pulse Rate 110 H 12/22/21 20:49 Respiratory Rate 20 H 12/22/21 20:49 Blood Pressure 151/87 12/22/21 20:49 Pulse Oximetry 97 12/22/21 20:49 MDM - Fall Medical Decision Making Patient is a 71-year-old female that had a fall when walking down her front porch steps. She got to the last step and lost her balance fell forward. She did hit her head on her landscaping rocks but denies any loss of consciousness, headache. She is complaining of a little bit of neck pain, right shoulder and upper arm pain and she has some skin tears, contusion her right arm and a laceration to her right hand. Vitals are stable. Patient is able to ambulate normally exam showed multiple skin tears right upper arm and a flap like laceration to palm of right hand. She has some ecchymosis and swelling in right upper arm and tenderness around her right shoulder. She has a contusion on right maxillary of face and right tenriism region of head. Neuro exam was normal. X-ray of right humerus right shoulder showed no acute fractures or findings. CT of head, face and cervical spine showed no acute findings. Patient's laceration and skin tears were irrigated extensively by nurse with normal saline and beta iodine wash. Lidocaine 1% was used as local and 9 sutures were placed to close laceration on palm of right hand. The nurse then bandaged up the laceration and skin tears and also applied some triple antibiotic ointment on them as well. Patient was stable for discharge home and sent home with a shoulder sling to use for the next couple days to help with right shoulder pain. She was told to follow-up with her PCP within the next 7 to 10 days to be reevaluated and have sutures removed. She was put on a prophylactic prescription for cephalexin. Return ED precautions given. Patient understood and agree with plan. Lab Data Radiology Impressions Cervical Spine CT 12/22/21 18:25 IMPRESSION: No acute injury. Face CT 12/22/21 18:25 IMPRESSION: No acute bony injury. Head CT 12/22/21 18:25 IMPRESSION: No acute intracranial injury. Facial findings described in the maxillofacial CT report. Shoulder X-Ray 12/22/21 18:25 IMPRESSION: No acute findings. Humerus X-Ray 12/22/21 18:27 IMPRESSION: No acute findings. Discharge Plan Discharge Patient Disposition: Home Clinical Impression: Skin tear Hand laceration Qualifiers: Encounter type: initial encounter Foreign body presence: without foreign body Laterality: right Qualified Code(s): S61.411A - Laceration without foreign body of right hand, initial encounter Contusion of left upper arm Qualifiers: Encounter type: initial encounter Qualified Code(s): S40.022A - Contusion of left upper arm, initial encounter Facial contusion Qualifiers: Encounter type: initial encounter Qualified Code(s): S00.83XA - Contusion of other part of head, initial encounter Condition: Stable Prescriptions: No Action cholecalciferol (vitamin D3) 25 mcg (1,000 unit) capsule 25 mcg PO QAM 0RF garlic 1,000 mg capsule 1,000 mg PO QAM 0RF turmeric root extract 500 mg capsule 500 mg PO QAM 0RF cranberry 500 mg capsule 500 mg PO QAM 0RF Rx Instructions: administer with meals multivitamin with minerals [Hair,Skin and Nails] Tablet 1 tab PO QAM 0RF (DME) lancets [Accu-Chek Multiclix Lancet] Misc See Rx Instructions .ROUTE .MEDSUPPLY Qty: 100 3RF Rx Instructions: once daily (DME) blood-glucose meter [Accu-Chek Julee Plus Meter] Misc See Rx Instructions .ROUTE .MEDSUPPLY Qty: 1 0RF Rx Instructions: once daily balance of nature PO 0RF amlodipine 10 mg tablet 10 mg PO QAM Qty: 90 4RF atorvastatin 20 mg tablet 20 mg PO BEDTIME Qty: 90 4RF albuterol sulfate [ProAir HFA] 90 mcg/actuation HFA aerosol inhaler 2 puff INHALATION Q6H PRN (Reason: shortness of breath or wheezing) 90 Days Qty: 3 1RF gabapentin 300 mg capsule 300 mg PO TID Qty: 90 0RF lidocaine 5 % cream 1 applic topical TID PRN (Reason: pain) Qty: 30 0RF furosemide 20 mg tablet 20 mg PO DAILY Qty: 7 0RF tolterodine 4 mg capsule,extended release 24hr 8 mg PO QAM Qty: 90 0RF ropinirole 0.25 mg tablet 0.25 mg PO BEDTIME Qty: 90 0RF primidone 50 mg tablet 100 mg PO QAM Qty: 90 0RF nitroglycerin 0.4 mg tablet, sublingual 0.4 mg sublingual Q5M PRN (Reason: chest pain) Qty: 30 2RF Rx Instructions: do not exceed 3 doses per episode pantoprazole 40 mg tablet,delayed release (DR/EC) 40 mg PO DAILY Qty: 90 0RF duloxetine 60 mg capsule, delayed rel sprinkle 120 mg PO QAM Qty: 90 0RF mirtazapine 30 mg tablet 30 mg PO BEDTIME Qty: 90 1RF (DME) cpap supply See Rx Instructions .Route .MEDSUPPLY Qty: 1 5RF Rx Instructions: As directed cpap supplies losartan 50 mg tablet 50 mg PO DAILY Qty: 90 3RF multivitamin Tablet 1 tab PO DAILY 0RF omega-3 fatty acids Capsule 1 cap PO QAM 0RF Milk Thistle [place] Tabs 1 tab PO DAILY 0RF Discharge Orders: Discharge ED (Routine); Ordered 12/22/21 Ordered By: Robert Young Referrals: Hanane Borden FNP-C [Primary Care Provider] - Discharge Diet: Regular Discharge Activity: Increase activity as tolerated Patient Instructions: Laceration (ED), Contusion in Adults (ED), Skin Tear (ED) Activity Restrictions/Additional Instructions: Take full course of antibiotics as prescribed. Keep laceration site clean and dry for the next 24 hours. Then after that you can clean and re-bandage daily. Watch for signs of infection such as redness, warmth, increased tenderness and puslike drainage. If you see the signs of infection return to the ED, urgent care or PCP for reevaluation. call your PCP to schedule a follow-up appointment for reevaluation and suture removal in about 7- 10 days. Continue taking all home meds. Wear shoulder sling to help with right shoulder pain for the next couple days. Remember to take arm out of sling multiple times throughout the day and do some range of motion exercises to prevent frozen shoulder. Follow discharge plans as discussed. You can return to the ED if symptoms worsen. Coding Level of Care Code ED Swimming Pool Maintenance for Deonna Fwkam Exam Comprehensive
[2021-12-22] MEDS: HYDROcodone-acetaminophen 7.5-325 mg Tablet 1 TAB PO (18:32)
--- NOTE | 2021-12-22 18:46 | PC.NURSE ---
1819 Injury list: Right facial contusion, without open skin, at gnosticism area to upper right cheek. Right shoulder pain with proximal humeral skin tears with bruising/contused area noted Right Radial wilson avulsion/laceration. Anesthetized with lidocaine and irrigated with sterile water and betadine solution. Wound repair with sutures by provider Right lower leg contusion, mid tib/fib. No bony abnormality observed Left forearm, small skin tears cleansed with betadine solution and sterile water. Left hand skin tear on radial side at base of first digit. Cleansed with betadine solution and sterile water. Patient denies any other injury
[2021-12-22] MEDS: neomycin-poly-bacitracin oint 28 gm 1 APPLIC TOPICAL (19:20)
--- NOTE | 2021-12-22 19:21 | PC.NURSE ---
1900 Wound dressed: Right shoulder skin tears with telfa and tegaderm. Right hand with Neosporin, telfa, 4x4, Kerlix Right lower leg with telfa and tegaderm Left forearm with telfa and tegaderm. Report to Georgie Lopez at 1915
[2021-12-22 20:49] VITALS: BP 151/87; PULSE 110; RESP 20; O2SAT 97
[2021-12-22] MEDS: cephALEXin 500 mg Capsule PO (20:49)
== END 2021-12-22 20:57 | disposition home or self-care (01) ==
PROVIDERS: Emergency Provider Physician Assistant; PCP Nurse Practitioner Family
DX: S61.411A Laceration without foreign body of right hand, initial encounter (principal); S00.83XA Contusion of other part of head, initial encounter; S40.022A Contusion of left upper arm, initial encounter; W01.0XXA Fall on same level from slipping, tripping and stumbling without subsequent striking against object, initial encounter; Z87.891 Personal history of nicotine dependence; M25.511 Pain in right shoulder
CPT/HCPCS: 12001; 70450; 70486; 72125; 73030; 73060; 99283

== ENCOUNTER → 2022-03-24 11:07 | Outpatient (BNVA) | payer MEDICARE, OTHER, SELFPAY | PROVIDERS: PCP Nurse Practitioner Family; Visit Provider Nurse Practitioner Family | DX: E11.9 Type 2 diabetes mellitus without complications (principal); E78.5 Hyperlipidemia, unspecified; G25.81 Restless legs syndrome; G25.0 Essential tremor; K21.9 Gastro-esophageal reflux disease without esophagitis; R07.9 Chest pain, unspecified; F41.9 Anxiety disorder, unspecified; F32.9 Major depressive disorder, single episode, unspecified; M79.89 Other specified soft tissue disorders; M79.672 Pain in left foot; I10 Essential (primary) hypertension; M25.551 Pain in right hip | CPT/HCPCS: 80053; 80061; 83036; 84443; 85025 ==

== ENCOUNTER 2022-06-10 15:20 | Outpatient (CLI) | payer OTHER, SELFPAY ==
--- NOTE | 2022-06-10 15:25 | XRR_ITS ---
PROCEDURE INFORMATION: Exam: XR Chest Exam date and time: 06/10/2022 3:41 PM Age: 71 years old Clinical indication: Shortness of breath; Patient HX: Ex smoker; Additional info: R06.02 - shortness of breath TECHNIQUE: Imaging protocol: Radiologic exam of the chest. Views: 2 views. COMPARISON: CR XR chest 1V portable [id number] 06/13/2021 6:55 AM FINDINGS: Lungs: Calcified granuloma right mid lung zone. There is limited lung expansion. Increasing opacities in the bilateral mid and lower lung zones may be related to poor inspiration however follow-up may be considered if there is a concern for developing pneumonia or other interstitial lung disease. Tiny streaky left basilar opacity, likely atelectasis. Pleural spaces: Unremarkable. No pleural effusion. No pneumothorax. Heart/Mediastinum: No cardiomegaly. Bones/joints: No acute findings. XR/XR chest 2V* [id number] IMPRESSION: Limited lung expansion with increasing bilateral opacities as described. No obvious dense consolidation.
== END 2022-06-10 15:21 | disposition home or self-care (01) ==
LOC: RAD 15:22
PROVIDERS: PCP Nurse Practitioner Family; Visit Provider Nurse Practitioner Family
DX: R06.02 Shortness of breath (principal); E78.5 Hyperlipidemia, unspecified; E11.9 Type 2 diabetes mellitus without complications; Z79.899 Other long term (current) drug therapy
CPT/HCPCS: 71046; 80053; 80061; 84443; 85025

== ENCOUNTER 2022-06-12 09:45 | Inpatient (IN) | payer MEDICARE, OTHER, SELFPAY ==
[2022-06-12] VITALS (9 sets, daily range): BP systolic 134–176; BP diastolic 69–84; PULSE 60–93; RESP 16–24; TEMP 36.6–36.7; O2SAT 95–97; BMI 46.4
--- NOTE | 2022-06-12 10:00 | XRR_ITS ---
PROCEDURE INFORMATION: Exam: XR Chest Exam date and time: 06/12/2022 10:15 AM Age: 71 years old Clinical indication: Cough and dyspnea and shortness of breath; Additional info: Dyspnea/cough TECHNIQUE: Imaging protocol: Radiologic exam of the chest. Views: 1 view. COMPARISON: CR XR chest 2V* [id number] 06/10/2022 3:41 PM FINDINGS: Lungs: No pulmonary vascular congestion or pulmonary edema. No focal peripheral lung consolidation, air bronchogram formation, or silhouette sign. Pleural spaces: Blunting of the left costophrenic angle which can be due to a trace pleural effusion. No right pleural effusion. No pneumothorax. Heart/Mediastinum: The cardiac silhouette is not enlarged. The mediastinal contours are normal. Bones/joints: No acute osseous abnormality. XR/XR chest 1V portable [id number] IMPRESSION: Poor inspiration. No sign of pneumonia or pulmonary edema.
--- NOTE | 2022-06-12 10:00 | ECG_ITS ---
[facility] Test Date: 2022-06-12 Pat Name: Lisa Rivera Department: Room: Gender: Female [employer]: : 1950 Requested By: Brett Shay Order Number: [id number] Maria Esther MD: Ivett Cabrera M.D. Measurements Intervals [place] Rate: 86 P: 59 CO: 162 QRS: 78 QRSD: 112 T: 48 QT: 405 QTc: 486 Interpretive Statements SINUS RHYTHM MODERATE INTRAVENTRICULAR CONDUCTION DELAY [110+ ms QRS DURATION] Compared to ECG 06/13/2021 08:45:01 Intraventricular conduction delay now present Electronically Signed On 06-12-2022 12:50:05 CDT by Ivett Cabrera M.D. [id number]
--- NOTE | 2022-06-12 10:36 | W.ED.GENADLT ---
HPI - General Adult General: Chief complaint: Shortness of Breath/Dyspnea Stated complaint: SOB Time Seen by Provider: 06/12/22 10:00 History of Present Illness: Patient is a 71-year-old female with a history of asthma, CKD, hyperlipidemia, hypertension who presents emergency room for complaints of abnormal liver and kidney function. Patient tells me that 2 weeks ago she was diagnosed with pneumonia and was started on antibiotics. Patient does not remember what antibiotic she is on. Since, patient tells me that she has been taking steroids. Shortly after she was on treatment for pneumonia 2 weeks ago, patient complains of right-sided flank pain that has been persistent. Patient reports orange urine and reports taking cranberry for presumed urinary tract infection. Patient still reports dysuria and hematuria. Of note, patient was recently followed up by her primary care provider for evaluation after her pneumonia. Patient had routine blood work that was done at [facility] which showed bilirubin of 8.4 and a creatinine of 2.7. Patient was told then told to come to the emergency room. On arrival today, patient denies any ongoing shortness of breath, chest pain, abdominal pain, nausea/vomiting, diarrhea/melena/hematochezia. Onset: unkonwn Duration:ongoing Location:home Severity:moderate Associated symptoms: Reports malaise; Deny chest pain, dyspnea, nausea, rash, palpitations or vomiting Review of Systems Const: Reports: malaise and other (+generalized weakness); Denies: fever(s) or chills Eyes: Denies: change in vision ENMT: Denies: mouth pain Card: Denies: chest pain or palpitations Resp: Denies: dyspnea or non-productive cough GI: Denies: abdominal pain, nausea, vomiting or diarrhea : Reports: flank pain (+R sided flank pain) and dysuria Musc: Denies: extremity pain Skin/Breast: Denies: rash or new lesions Neuro: Denies: weakness in extremities Psych: Reports: other (Normal mood) Jose/Lymph: Denies: easy bruising PFSH ED PFSH: Medical History Anxiety and depression Asthma Chronic kidney disease Environmental allergies Essential tremor Fibromyalgia Hyperlipidemia Hypertension Insomnia Osteoarthritis Overactive bladder Restless leg Surgical History H/O section H/O esophagogastroduodenoscopy (08/12/21) S/P bilateral cataract extraction S/P carpal tunnel release S/P cholecystectomy S/P hysterectomy S/P knee replacement S/P nasal surgery Status post colonoscopy (08/12/21) Family History Brother Myocardial infarct Hypertension Father Myocardial infarct Hypertension Mother CHF (congestive heart failure) Hypertension Liver disease Cancer Social History Smoking and tobacco status: former smoker Alcohol intake: never Lives independently: Yes Household members: spouse Housing: House Marital status: Pets and animals: No Physical Exam Const: COMMON NORMALS: alert HENMT: COMMON NORMALS: atraumatic HEAD & SCALP: atraumatic MOUTH: moist mucous membranes not abnormal Eye: COMMON NORMALS: EOMs intact bilaterally and conjunctivae normal CONJUNCTIVA: Yes conjunctivae normal Neck/C-Spine: COMMON NORMALS: full ROM and supple Resp: COMMON NORMALS: normal respiratory effort and clear to auscultation bilaterally AUSCULTATION: clear to auscultation bilaterally Cardio: COMMON NORMALS: regular rate RATE: regular rate GI: COMMON NORMALS: Soft to palpation and non-tender PALPATION: Yes Soft to palpation Extremity: COMMON NORMALS: full ROM Neuro: SENSORIUM/ORIENTATION: Yes alert MOTOR EXAM: No Abnormal motor strength present and Other motor observations present (no focal motor deficits) Psych: COMMON NORMALS: speech normal SPEECH: Yes normal speech MOOD & AFFECT: Yes euthymic mood Course Vital Signs: Vital signs: Vital Signs Temperature 98.1 F 06/12/22 09:51 Pulse Rate 93 06/12/22 09:51 Respiratory Rate 24 H 06/12/22 09:51 Blood Pressure 176/83 06/12/22 09:51 Pulse Oximetry 95 06/12/22 09:51 Oxygen Delivery Me thod 06/12/22 09:51 [facility] - General Adult Medical Decision Making Patient is a 71-year-old female with a history of asthma, CKD, hyperlipidemia, hypertension who presents emergency room for complaints of abnormal liver and kidney function. Physical patient has been right-sided CVA tenderness to palpation. Lab work showed white count 20.5. Patient did have creatinine of 2.9 up from 2.7 with a baseline of 1. T bili is elevated to 4.3 from 8.4 on 06/10/2022. Ultrasound does show a dilated CBD. Patient is status postcholecystectomy. He was consistent with UTI. In the setting of flank, this is concerning for pyelonephritis. CT abdomen pelvis did not show any signs of stone. Patient is noted to have right-sided renal cystic lesion. I discussed this extensively with patient patient has copy of the CT report. Patient received ceftriaxone in the ED. Patient will be admitted to hospital for management of acute kidney injury, total bilirubin elevation, and UTI. Disposition: admission Lab Data : 06/12/22 11:02 06/12/22 12:50 Radiology Impressions Chest X-Ray 06/12/22 10:00 IMPRESSION: Poor inspiration. No sign of pneumonia or pulmonary edema. Gallbladder Ultrasound 06/12/22 12:09 IMPRESSION: 1. No common bile duct dilatation. 2. Status post cholecystectomy. 3. Mild hepatomegaly with changes of cirrhosis. Abdomen/Pelvis CT 06/12/22 13:06 IMPRESSION: 1. No urinary tract calculus or obstruction. 2. Right renal mass versus complicated cyst. 3. Chronic portal vein thrombosis with compensatory changes. Laboratory Results WBC 20.5 10^3/uL (4.0-10.0) H 06/12/22 11:02 RBC 3.83 10^6/uL (4.1-5.3) L 06/12/22 11:02 Hgb 11.4 g/dL (11.5-15.3) L 06/12/22 11:02 Hct 33.5 % (37.0-47.0) L 06/12/22 11:02 MCV 87.5 fl (81-99) 06/12/22 11:02 MCH 29.8 pg (28.0-34.0) 06/12/22 11:02 MCHC 34.0 g/dL (30.0-36.0) 06/12/22 11:02 RDW 14.6 % (12.1-15.1) 06/12/22 11:02 Plt Count 85 10^3/cmm (130-400) L 06/12/22 11:02 MPV 11.6 fL (7.4-10.4) H 06/12/22 11:02 Neut % (Auto) 77.1 % 06/12/22 11:02 Lymph % (Auto) 5.6 % 06/12/22 11:02 Duval % (Auto) 11.8 % 06/12/22 11:02 Eos % (Auto) 0.5 % 06/12/22 11:02 Baso % (Auto) 0.5 % 06/12/22 11:02 Neut # (Auto) 15.81 10^3/uL (1.8-7.7) H 06/12/22 11:02 Lymph # (Auto) 1.2 10^3/uL (0.8-4.8) 06/12/22 11:02 Duval # (Auto) 2.4 10^3/uL (0.2-0.9) H 06/12/22 11:02 Eos # (Auto) 0.1 10^3/uL (0.0-0.8) 06/12/22 11:02 Baso # (Auto) 0.1 10^3/uL (0.0-0.1) 06/12/22 11:02 Nucleated RBC % (auto) 0 % 06/12/22 11:02 Nucleated RBCs # 0.0 /100WBC 06/12/22 11:02 PT 16.30 SECONDS (12.1-14.9) H 06/12/22 12:50 INR 1.28 (0.8-1.2) H 06/12/22 12:50 APTT 24.6 SECONDS (23.9-36.7) 06/12/22 12:50 Sodium 127 mmol/L (136-145) L 06/12/22 12:50 Potassium 4.0 mmol/L (3.5-5.1) 06/12/22 12:50 Chloride 91 mmol/L (98-107) L 06/12/22 12:50 Carbon Dioxide 21 mmol/L (22-29) L 06/12/22 12:50 Anion Gap 19.0 (5-19) 06/12/22 12:50 BUN 68 mg/dL (8-23) H 06/12/22 12:50 Creatinine 2.9 mg/dL (0.5-0.9) H 06/12/22 12:50 GFR Calculation 16.0 mL/min (90-130) L 06/12/22 12:50 Glucose 299 mg/dL (65-115) H 06/12/22 12:50 Calculated Osmolality 295 mOsm/kg (285-295) 06/12/22 12:50 Calcium 7.7 mg/dL (8.5-10.5) L 06/12/22 12:50 Total Bilirubin 4.3 mg/dL (0.15-1.2) H 06/12/22 12:50 AST 37 U/L (0-32) H 06/12/22 12:50 ALT 23 U/L (0-33) 06/12/22 12:50 Alkaline Phosphatase 203 U/L (35-105) H 06/12/22 12:50 Total Protein 5.9 g/dL (6.6-8.7) L 06/12/22 12:50 Albumin 2.3 g/dL (3.5-5.2) L 06/12/22 12:50 Globulin 3.6 g/dL (1.3-4.6) 06/12/22 12:50 Lipase 113 U/L (13-60) H 06/12/22 11:02 Urine Color Yellow (Yellow) 06/12/22 12:02 Urine Appearance Clear (CLEAR) 06/12/22 12:02 Urine pH 5 (5-7) 06/12/22 12:02 Ur Specific [place] 1.010 (1.005-1.030) 06/12/22 12:02 Urine Protein Neg (Negative) 06/12/22 12:02 Urine Glucose (UA) Norm (Normal) 06/12/22 12:02 Urine Ketones Negative (Negative) 06/12/22 12:02 Urine Blood 3+ (Negative) H 06/12/22 12:02 Urine Nitrate Positive (Negative) H 06/12/22 12:02 Urine Bilirubin Neg (Negative) 06/12/22 12:02 Urine Urobilinogen Neg mg/dL (Negative) 06/12/22 12:02 Ur Leukocyte Esterase 2+ (Negative) H 06/12/22 12:02 Urine RBC 25-40 /hpf (0-2) H 06/12/22 12:02 Urine WBC 25-40 /hpf (0-5) H 06/12/22 12:02 Ur Squamous Epith Cells 0-4 /hpf (0-5) H 06/12/22 12:02 Amorphous Sediment Not Reportable 06/12/22 12:02 Urine Bacteria 3+ /hpf (NONE) H 06/12/22 12:02 Imaging Data Other Imaging: Radiologist's impression: [facility] [address] [place] [address] CT Scan Report Signed Patient: Lisa Rivera Unit #: [id number] : 1950 Age/Sex: 71 / F ADM Date: 06/12/22 Loc: ER Room/Bed: Attending Dr: Ordering Provider/Ordering MD: Dallas Harper MD Date of Service: 06/12/22 Procedure(s): CT abdomen pelvis wo con [id number] Accession Number(s): [id number] Report Number: [id number] PROCEDURE INFORMATION: Exam: CT Abdomen And Pelvis Without Contrast Exam date and time: 06/12/2022 1:58 PM Age: 71 years old Clinical indication: Abdominal pain; Patient HX: Elevated creatinine, UTI, generalized abd pain and weakness; Additional info: Eval for stone TECHNIQUE: Imaging protocol: Computed tomography of the abdomen and pelvis without contrast. Radiation optimization: All CT scans at this facility use at least one of these dose optimization techniques: automated exposure control; mA and/or kV adjustment per patient size (includes targeted exams where dose is matched to clinical indication); or iterative reconstruction. COMPARISON: US gall bladder [id number] 06/12/2022 12:20 PM RADIATION DOSE METRICS: Total DLP (mGy-cm): 987.89 FINDINGS: Heart: Calcified coronary artery atherosclerotic plaque visualized. Liver: The liver is somewhat prominent in size but is homogeneous. Gallbladder and bile ducts: Prior cholecystectomy. No biliary ductal dilatation allowing for that. Pancreas: No peripancreatic inflammation. No pancreatic ductal dilation. Spleen: The spleen appears enlarged but is homogeneous. Adrenal glands: No adrenal mass. Kidneys and ureters: No hydronephrosis. No nephrolithiasis. There is a 3.3 cm right renal low-attenuation lesion with indeterminate attenuation measurements (3:42 and 5:44). Stomach and bowel: No bowel obstruction. No diverticulitis. Appendix: No evidence of appendicitis. Intraperitoneal space: No ascites or pneumoperitoneum. Vasculature: No abdominal aortic aneurysm. Suspect chronic thrombosis of the portal vein with cavernous transformation . Also suspect enlargement of the proper hepatic artery as a compensatory mechanism explaining the Doppler finding on the earlier ultrasound exam. Dilated, tortuous retroperitoneal collateral veins reflecting chronic portal vein thrombosis and portal hypertension. Lymph nodes: Calcified right hilar lymph node from prior granulomatous disease. Urinary bladder: No urinary bladder calculus or wall thickening. Reproductive: Prior hysterectomy. Bones/joints: Mild curvature lumbar spine convex to the left associated with multilevel degenerative changes most prominently at L2-L3. Soft tissues: No acute soft tissue abnormality. CT/CT abdomen pelvis wo con [id number] IMPRESSION: 1. No urinary tract calculus or obstruction. 2. Right renal mass versus complicated cyst. 3. Chronic portal vein thrombosis with compensatory changes. ? Dictated By: Kg Sanders Signed By: Kg Sanders Signed Date/Time: 06/12/22 1434 DD/ [address] [id number] Ultrasound Report Signed Patient: Lisa Rivera Unit #: [id number] : 1950 Age/Sex: 71 / F ADM Date: 06/12/22 Loc: ER Room/Bed: Attending Dr: Ordering Provider/Ordering MD: Dallas Harper MD Date of Service: 06/12/22 Procedure(s): US gall bladder [id number] Accession Number(s): [id number] Report Number: [id number] WS: [id number] RIGHT UPPER QUADRANT ULTRASOUND HISTORY: Elevated bilirubin. COMPARISON: 05/01/2020 Liver: 17.2 cm in length. Liver is mildly enlarged. Coarse echotexture with nodular surface from cirrhosis. No mass. No bile duct dilatation. Portal Vein: Abnormal waveform in the portal vein. Suspect this may be the hepatic artery and not the portal vein. Gallbladder: Status post cholecystectomy. CBD: 0.5 cm Pancreas: Poorly visualized. Right kidney: 11.6 cm in length. Normal size and echogenicity. No hydronephrosis or mass. Aorta and IVC: Unremarkable abdominal aorta and IVC. No ascites. US/US gall bladder [id number] IMPRESSION: ? 1.? No common bile duct dilatation. 2.? Status post cholecystectomy. 3.? Mild hepatomegaly with changes of cirrhosis. ? Dictated By: Rita Giron DO Signed By: Rita Giron DO Signed Date/Time: 06/12/22 1312 DD/ 1307 Discharge Plan Discharge Patient Disposition: Admitted As Inpatient Clinical Impression: Acute kidney injury superimposed on chronic kidney disease, Total bilirubin, elevated Condition: Stable Coding Level of Care Code ED Service Observer Chief for Zachariahg Fwd Exam Comprehensive
[2022-06-12 11:10] LABS: Basophils # 0.1 10^3/uL (0.0-0.1); Basophils % 0.5 %; Eosinophils # 0.1 10^3/uL (0.0-0.8); Eosinophils % 0.5 %; Hematocrit 33.5 % (37.0-47.0); Hemoglobin 11.4 g/dL (11.5-15.3); Lymphocytes # 1.2 10^3/uL (0.8-4.8); Lymphocytes % 5.6 %; Mean Corpuscular Hemoglobin 29.8 pg (28.0-34.0); Mean Corpuscular Volume 87.5 fl (81-99); Mean Platelet Volume 11.6 fL (7.4-10.4); Monocytes # 2.4 10^3/uL (0.2-0.9); Monocytes % 11.8 %; Neutrophils # 15.81 10^3/uL (1.8-7.7); Neutrophils % 77.1 %; Nucleated Red Blood Cells % 0 %; Platelet Count 85 10^3/cmm (130-400); Red Blood Count 3.83 10^6/uL (4.1-5.3); Red Cell Distribution Width 14.6 % (12.1-15.1); White Blood Count 20.5 10^3/uL (4.0-10.0)
[2022-06-12 11:28] LABS: Alanine Aminotransferase 23 U/L (0-33); Albumin Level 2.5 g/dL (3.5-5.2); Alkaline Phosphatase 173 U/L (35-105); Anion Gap 20.3 (5-19); Aspartate Amino Transferase 37 U/L (0-32); Blood Urea Nitrogen 68 mg/dL (8-23); Calcium 7.8 mg/dL (8.5-10.5); Carbon Dioxide 21 mmol/L (22-29); Chloride 87 mmol/L (98-107); Globulin 3.9 g/dL (1.3-4.6); Glomerular Filtration Rate 15.4 mL/min (90-130); Glucose 303 mg/dL (65-115); Lipase 113 U/L (13-60); Osmolality Calculated 289 mOsm/kg (285-295); Potassium 4.3 mmol/L (3.5-5.1); Sodium 124 mmol/L (136-145); Total Bilirubin 5.1 mg/dL (0.15-1.2); Total Protein 6.4 g/dL (6.6-8.7)
--- NOTE | 2022-06-12 12:09 | US_ITS ---
WS: [id number] RIGHT UPPER QUADRANT ULTRASOUND HISTORY: Elevated bilirubin. COMPARISON: 05/01/2020 Liver: 17.2 cm in length. Liver is mildly enlarged. Coarse echotexture with nodular surface from cirr hosis. No mass. No bile duct dilatation. Portal Vein: Abnormal waveform in the portal vein. Suspect this may be the hepatic artery and not the portal vein. Gallbladder: Status post cholecystectomy. CBD: 0.5 cm Pancreas: Poorly visualized. Right kidney: 11.6 cm in length. Normal size and echogenicity. No hydronephrosis or mass. Aorta and IVC: Unremarkable abdominal aorta and IVC. No ascites. US/US gall bladder [id number] IMPRESSION: 1. No common bile duct dilatation. 2. Status post cholecystectomy. 3. Mild hepatomegaly with changes of cirrhosis.
[2022-06-12 12:25] LABS: Add Urine Microscopic? YES; Bilirubin Urine Neg (Negative); Blood Urine 3+ (Negative); Glucose Urine UA Norm (Normal); Ketones Urine Negative (Negative); Leukocyte Esterase Urine 2+ (Negative); Nitrate Urine Positive (Negative); Protein Urine Neg (Negative); Urine Appearance Clear (CLEAR); Urine Color Yellow (Yellow); Urobilinogen Urine Neg (Negative); pH Urine 5 (5-7)
[2022-06-12 12:30] LABS: RBC Urine 25-40 /hpf (0-2)
[2022-06-12 12:31] LABS: Add Urine Culture? Yes; Bacteria Urine 3+ /hpf; Squamous Epithelial Cell Urine 0-4 /hpf (0-5); WBC Urine 25-40 /hpf (0-5)
--- NOTE | 2022-06-12 13:06 | CTR_ITS ---
PROCEDURE INFORMATION: Exam: CT Abdomen And Pelvis Without Contrast Exam date and time: 06/12/2022 1:58 PM Age: 71 years old Clinical indication: Abdominal pain; Patient HX: Elevated creatinine, UTI, generalized abd pain and weakness; Additional info: Eval for stone TECHNIQUE: Imaging protocol: Computed tomography of the abdomen and pelvis without contrast. Radiation optimization: All CT scans at this facility use at least one of these dose optimization techniques: automated exposure control; mA and/or kV adjustment per patient size (includes targeted exams where dose is matched to clinical indication); or iterative reconstruction. COMPARISON: US gall bladder [id number] 06/12/2022 12:20 PM RADIATION DOSE METRICS: Total DLP (mGy-cm): 987.89 FINDINGS: Heart: Calcified coronary artery atherosclerotic plaque visualized. Liver: The liver is somewhat prominent in size but is homogeneous. Gallbladder and bile ducts: Prior cholecystectomy. No biliary ductal dilatation allowing for that. Pancreas: No peripancreatic inflammation. No pancreatic ductal dilation. Spleen: The spleen appears enlarged but is homogeneous. Adrenal glands: No adrenal mass. Kidneys and ureters: No hydronephrosis. No nephrolithiasis. There is a 3.3 cm right renal low-attenuation lesion with indeterminate attenuation measurements (3:42 and 5:44). Stomach and bowel: No bowel obstruction. No diverticulitis. Appendix: No evidence of appendicitis. Intraperitoneal space: No ascites or pneumoperitoneum. Vasculature: No abdominal aortic aneurysm. Suspect chronic thrombosis of the portal vein with cavernous transformation . Also suspect enlargement of the proper hepatic artery as a compensatory mechanism explaining the Doppler finding on the earlier ultrasound exam. Dilated, tortuous retroperitoneal collateral veins reflecting chronic portal vein thrombosis and portal hypertension. Lymph nodes: Calcified right hilar lymph node from prior granulomatous disease. Urinary bladder: No urinary bladder calculus or wall thickening. Reproductive: Prior hysterectomy. Bones/joints: Mild curvature lumbar spine convex to the left associated with multilevel degenerative changes most prominently at L2-L3. Soft tissues: No acute soft tissue abnormality. CT/CT abdomen pelvis wo con [id number] IMPRESSION: 1. No urinary tract calculus or obstruction. 2. Right renal mass versus complicated cyst. 3. Chronic portal vein thrombosis with compensatory changes.
[2022-06-12 13:10] LABS: INR 1.28 (0.8-1.2)
[2022-06-12 13:11] LABS: Partial Thromboplastin Time 24.6 SECONDS (23.9-36.7)
[2022-06-12 13:17] LABS: Alanine Aminotransferase 23 U/L (0-33); Albumin Level 2.3 g/dL (3.5-5.2); Alkaline Phosphatase 203 U/L (35-105); Aspartate Amino Transferase 37 U/L (0-32); Blood Urea Nitrogen 68 mg/dL (8-23); Calcium 7.7 mg/dL (8.5-10.5); Carbon Dioxide 21 mmol/L (22-29); Chloride 91 mmol/L (98-107); Globulin 3.6 g/dL (1.3-4.6); Glucose 299 mg/dL (65-115); Osmolality Calculated 295 mOsm/kg (285-295); Sodium 127 mmol/L (136-145); Total Bilirubin 4.3 mg/dL (0.15-1.2); Total Protein 5.9 g/dL (6.6-8.7)
[2022-06-12] MEDS: cefTRIAXone 1,000 MG in sodium chloride 0.9% (plus) 50 ML 100 MG IV (13:25)
--- NOTE | 2022-06-12 13:33 | PC.PHAR ---
Addendum entered by Jacqueline Pearl 06/12/22 13:34: PT HAD OZEMPIC 0.25MG WEEKLY RX WRITTEN 03/24/22 PT STATES SHE NEVER GOT Original Note: PT STATES SHE TAKES CARE OF HER OWN MEDICATIONS-PT AND PTS STATES THE PT DIDNT TAKE ANY MEDICATIONS TODAY-NOTES ARE MADE IN THE PHARMACY COMMENTS
--- NOTE | 2022-06-12 15:08 | P.HP_ITS ---
Providers/Chief Complaint Primary Care Provider: MATTHEW Norman Chief Complaint: SOB History of Present Illness Lisa Rivera is a 71 year old female Medications/Allergies Home Medications Medication Instructions Recorded Confirmed Last Taken Type cholecalciferol (vitamin D3) 25 25 mcg PO QAM 03/26/20 06/12/22 06/11/22 History mcg (1,000 unit) capsule cranberry 500 mg capsule 500 mg PO QAM 03/26/20 06/12/22 06/11/22 History garlic 1,000 mg capsule 1,000 mg PO QAM 03/26/20 06/12/22 06/11/22 History multivitamin with minerals 1 tab PO QAM 03/26/20 06/12/22 06/11/22 History (Hair,Skin and Nails tablet) turmeric root extract 500 mg 500 mg PO QAM 03/26/20 06/12/22 06/11/22 History capsule blood-glucose meter (Accu-Chek #1 ea 12/26/20 06/12/22 Unknown Rx Julee Plus Meter) lancets (Accu-Chek Multiclix #100 ea 12/26/20 06/12/22 Unknown Rx Lancet) albuterol sulfate 90 mcg/actuation 2 puff inhalation Q6H PRN 04/09/21 06/12/22 2 Weeks Ago Rx aerosol inhaler (ProAir HFA) shortness of breath or wheezing 90 ~07/29/21 days #3 ea Milk Thistle [place]on Tabs 1 tab PO DAILY 06/13/21 06/12/22 06/11/22 History multivitamin 1 tab PO DAILY 06/13/21 06/12/22 06/11/22 History cpap supply #1 ea 09/10/21 06/12/22 Unknown Rx amlodipine 10 mg tablet 10 mg PO QAM #90 tabs 10/15/21 06/12/22 06/11/22 Rx atorvastatin 20 mg tablet 20 mg PO BEDTIME #90 tabs 10/15/21 06/12/22 06/11/22 Rx balance of nature 3 tab PO QAM 10/15/21 06/12/22 06/11/22 History duloxetine 60 mg capsule,delayed 120 mg PO QAM #90 caps 03/24/22 06/12/22 06/11/22 Rx release sprinkle furosemide 20 mg tablet 20 mg PO BID #180 tabs 03/24/22 06/12/22 06/11/22 Rx metformin 500 mg tablet,extended 500 mg PO BID 90 days #180 tabs 03/24/22 06/12/22 06/11/22 Rx release 24 hr mirtazapine 15 mg tablet 15 mg PO BEDTIME #30 tabs 03/24/22 06/12/22 06/11/22 Rx nitroglycerin 0.4 mg sublingual 0.4 mg sublingual Q5M PRN chest 03/24/22 06/12/22 Unknown Rx tablet pain #30 tabs primidone 50 mg tablet 100 mg PO QAM #90 tabs 03/24/22 06/12/22 06/11/22 Rx ropinirole 0.25 mg tablet 0.25 mg PO BEDTIME #90 tabs 03/24/22 06/12/22 06/11/22 Rx tolterodine 4 mg capsule,extended 8 mg PO QAM #90 caps 03/24/22 06/12/22 06/11/22 Rx release 24 hr levofloxacin 750 mg tablet 750 mg PO DAILY #7 tabs 06/10/22 06/12/22 06/11/22 Rx prednisone 20 mg tablet 20 mg PO BID #10 tabs 06/10/22 06/12/22 06/11/22 Rx losartan 50 mg tablet 50 mg PO QAM 06/12/22 06/12/22 06/11/22 History omega-3 fatty acids-fish oil 684 1 cap PO QAM 06/12/22 06/12/22 06/11/22 History mg-1,200 mg capsule,delayed release pantoprazole 40 mg tablet,delayed 40 mg PO QAM 06/12/22 06/12/22 06/11/22 History release potassium chloride 10 mEq 10 meq PO QAM 06/12/22 06/12/22 06/11/22 History tablet,extended release(part/cryst) (Klor-Con M) Allergies Allergy/AdvReac Type Severity Reaction Status Date / Time adhesive tape Allergy Unknown Verified 06/12/22 13:21 codeine Allergy ALGY-Hives Verified 06/12/22 13:21 quinine Allergy ALGY-Chills Verified 06/12/22 13:21 tramadol Allergy ALGY-Wheezi Verified 06/12/22 13:21 ng PFSH Acute PFSH: Medical History Anxiety and depression Asthma Chronic kidney disease Environmental allergies Essential tremor Fibromyalgia Hyperlipidemia Hypertension Insomnia Osteoarthritis Overactive bladder Restless leg Surgical History H/O section H/O esophagogastroduodenoscopy (08/12/21) S/P bilateral cataract extraction S/P carpal tunnel release S/P cholecystectomy S/P hysterectomy S/P knee replacement S/P nasal surgery Status post colonoscopy (08/12/21) Family History Brother Myocardial infarct Hypertension Father Myocardial infarct Hypertension Mother CHF (congestive heart failure) Hypertension Liver disease Cancer Social History Smoking and tobacco status: former smoker Alcohol intake: never Lives independently: Yes Household members: spouse Housing: House Marital status: Pets and animals: No Vitals/I&O/Wt Last Vital Signs Temp 98.1 F 06/12/22 09:51 Pulse 93 06/12/22 09:51 Resp 24 H 06/12/22 09:51 BP 176/83 06/12/22 09:51 Pulse Ox 95 06/12/22 09:51 O2 Del Method 06/12/22 09:51 Weight last 48 hrs Weight 104.326 kg Data : 06/12/22 11:02 06/12/22 12:50 Coding Level of Care Code Acute Radiator Cleaner for Deonna Bell
[2022-06-12 16:45] LABS: Lactate Dehydrogenase 205 U/L (135-214)
[2022-06-12 16:52] LABS: Free T4 Free Thyroxine 0.74 ng/dL (0.82-1.77); Procalcitonin 0.87 ng/mL (0-0.5); T3 Free 1.9 PG/ML (2.0-4.4)
--- NOTE | 2022-06-12 16:53 | CTR_ITS ---
PROCEDURE INFORMATION: Exam: CT Chest Without Contrast; Diagnostic Exam date and time: 06/12/2022 8:27 PM Age: 71 years old Clinical indication: Shortness of breath; Prior surgery; Surgery type: Gb; Patient HX: C/O SOB. TECHNIQUE: Imaging protocol: Diagnostic computed tomography of the chest without contrast. Radiation optimization: All CT scans at this facility use at least one of these dose optimization techniques: automated exposure control; mA and/or kV adjustment per patient size (includes targeted exams where dose is matched to clinical indication); or iterative reconstruction. COMPARISON: CR XR chest 1V portable [id number] 06/12/2022 10:15 AM RADIATION DOSE METRICS: Total DLP (mGy-cm): 509.55 FINDINGS: Lungs: Dependent atelectasis posterior both lung bases, right greater than left. Otherwise no acute lung consolidation or ground-glass opacity. Assessment is limited due to motion artifacts. Calcified granuloma posterior right lung base. Pleural spaces: Unremarkable. No pneumothorax. No pleural effusion. Heart: Normal heart size with coronary calcification. Lymph nodes: Nonenlarged right hilar calcified lymph nodes consistent with chronic granulomatous disease. Vasculature: Unremarkable. No aortic aneurysm. Bones/joints: No acute findings. Soft tissues: No acute findings. Other findings: Probable hepatosplenomegaly, partially visualized. CT/CT chest [facility] [id number] IMPRESSION: 1. Dependent atelectasis. No acute pulmonary findings otherwise. 2. Coronary calcification. 3. Hepatosplenomegaly, partially visualized.
--- NOTE | 2022-06-12 16:58 | USCV_ITS ---
Lisa Rivera Age: 71 Gender: F : 1950 Exam Date: 06/12/2022 21:53 Ordering Phys: David Keane MD Technologist: NATALYA [place] [facility] [place]: Profound shortness of breath. Patient on CPAP. Evaluate for CHF. No history of cardiac intervention per patient. BP: 134 / 72 HR: 86 Rhythm: Sinus Technical Quality: Adequate MEASUREMENTS (Male / Female) Normal Values 2D ECHO LV Diastolic Diameter PLAX 3.6 cm 4.2 - 5.9 / 3.9 - 5.3 cm LV Systolic Diameter PLAX 2.5 cm IVS Diastolic Thickness 1.4 cm 0.6 - 1.0 / 0.6 - 0.9 cm IVS Systolic Thickness 1.9 cm LVPW Diastolic Thickness 1.0 cm 0.6 - 1.0 / 0.6 - 0.9 cm LVPW Systolic Thickness 1.3 cm LVOT Diameter 1.7 cm LV Ejection Fraction 2D Teich 58.3 % LV Ejection Fraction MOD 2C 65.5 % LV Ejection Fraction 2C AL 64.6 % LA Diameter 3.5 cm LA Width 3.1 cm LA Height 4.1 cm RA Width 4.2 cm RA Height 3.7 cm Aorta at Sinotubular Diameter 2.7 cm IVC Diameter 1.9 cm M-MODE Aortic Annulus Diameter 2.5 cm LA Ao Ratio MM 1.4 MV E Point Septal Separation 0.4 cm DOPPLER AV Peak Velocity 168.0 cm/s LVOT Peak Velocity 159.0 cm/s AV Area Cont Eq vti 2.1 cm squared AV Area Cont Eq pk 2.2 cm squared MV Peak Velocity 131.0 cm/s MV Area PHT 3.0 cm squared Mitral E to A Ratio 0.9 MV E' Velocity 65.5 cm/s Mitral E to MV E' Ratio 8.9 Mitral E to LV E' Lateral Ratio 7.8 Mitral E to LV E' Septal Ratio 10.5 TR Peak Velocity 266.3 cm/s TR Peak Gradient 28.4 mmHg TV Peak E Velocity 120.0 cm/s Right Atrial Pressure 5.0 mmHg Pulmonary Artery Systolic Pressu 33.4 mmHg PV Peak Velocity 118.0 cm/s RV Acceleration Time 0.1 s RV Ejection Time 0.4 s RV AcT/ET 0.3 FINDINGS Left Ventricle Technically limited quality echocardiogram. Left ventricle is normal in size. LV systolic function is normal with EF of 55 to 60%. No regional wall motion abnormalities are seen. Right Ventricle Normal in size and function Right Atrium Normal in size Left Atrium Normal in size Mitral Valve Structurally normal mitral valve. Mild mitral regurgitation Aortic Valve Grossly normal. No significant stenosis or regurgitation Tricuspid Valve Mild tricuspid regurgitation. Insufficient TR jet to calculate RVSP. Pulmonic Valve Not well-visualized Pericardium Normal Aorta Normal in size IVC CONCLUSIONS Technically limited quality echocardiogram because of poor ultrasonic windows. LV systolic function is normal with EF of 55 to 60%. Mild mitral regurgitation Mild tricuspid regurgitation Compared to prior echocardiogram from 06/13/2022, no significant changes are seen Christophe Geronimo MD (Electronically Signed) Final Date: 13 June 2022 13:53 S
[2022-06-12 17:07] LABS: Iron 65 ug/dL (37-145); Percent Saturation 39.8 % (20-50); Total Iron Binding Capacity 163 mcg/dl; Unsaturated Iron Binding 98 ug/dL (112-347)
[2022-06-12 17:14] LABS: Gamma Glutamyl Transferase 78 U/L (5-36); Total Bilirubin 4.3 mg/dL (0.15-1.2)
[2022-06-12 17:30] LABS: Vitamin B12 > 2000 pg/mL (232-1245)
[2022-06-12 17:41] LABS: Folate Level 19.1 ng/mL (4.8-37.3)
[2022-06-12 17:44] LABS: Hepatitis A Antibody IgM Non-Reactive (Nonreactive); Hepatitis B Core AB, Total Non-Reactive (Nonreactive); Hepatitis B Surface AB 3.5 (11.5-1000); Hepatitis B Surface Antigen Non-Reactive (Nonreactive); Hepatitis C Virus Antibody Non-Reactive (Nonreactive)
[2022-06-12 18:20] LABS: NT Pro B Type Natriuretic Pept 4761 pg/mL (0-125)
[2022-06-12] MEDS: ferrous gluconate 324 mg Tablet PO (18:46)
[2022-06-12] MEDS: fentaNYL 50 mcg Patch 1 PATCH TRANSDERMA (18:46)
[2022-06-12] MEDS: docusate sodium 100 mg Capsule PO (18:46)
[2022-06-12] MEDS: piperacillin-tazobactam 3.375 GM in sodium chloride 0.9% (plus) 50 ML IV (18:47)
[2022-06-12] MEDS: sodium chloride 0.9% 1,000 ML 75 ML IV (18:47)
[2022-06-12] MEDS: ipratropium-albuterol 3 mL Neb INHALATION (19:51)
[2022-06-12] MEDS: budesonide 0.5 mg/2 mL Neb INHALATION (19:51)
[2022-06-12] MEDS: ropinirole 0.25 mg Tablet PO (20:39)
[2022-06-12] MEDS: heparin 5,000 unit/mL INJ 1 mL 5000 UNIT SUBCUT (20:39)
[2022-06-12] MEDS: mirtazapine 15 mg Tablet PO (20:39)
[2022-06-12 21:45] LABS: Glucose Point of Care 349 mg/dL (70-110)
[2022-06-12] MEDS: insulin lispro 100 unit/1 mL SUBCUT (21:47)
--- NOTE | 2022-06-12 22:41 | P.HP_ITS ---
Providers/Chief Complaint Admitting Physician: David Keane MD Primary Care Provider: HANNA Norman-Tarik Chief Complaint: SOB History of Present Illness Lisa Rivera is a 71 year old female with past medical history of hypertension, type 2 diabetes mellitus, hyperlipidemia, fibromyalgia, CKD, COPD, restless leg syndrome was sent into the ER today by her PCP because of abnormal labs. As per the patient she has been having symptoms of shortness of breath and increased cough more than her usual for last 1 week. Prior to that she has been having pain in the right side of her flank associated with darkish colored, cranberry colored urine as per the patient for last 2 weeks to 10 days. As per the patient she always have some cough and difficulty in breathing secondary to her asthma for which she takes inhaler daily. She does not use oxygen. For the same complaint she went to her PCP around a week ago and was given oral steroids along with antibiotics. She has been taking steroids since then but started taking antibiotic which seems to be Levaquin yesterday. Today she got a call from her PCP because her liver numbers and kidney numbers were deranged so she w as asked to come to the ER. Examination patient does Comfortably in bed, slightly anxious, short of breath, tachypneic but saturating well on room air complaining of right flank pain. Review of Systems General: Reports: 10 or more systems reviewed and unremarkable except in HPI and below Const: Denies: fever(s), chills, body aches, change in appetite, change in weight, malaise, night sweats, diaphoresis, change in sleep pattern, daytime sleepiness or snoring Eyes: Denies: change in vision, blurry vision, photophobia, eye discomfort or eye discharge ENMT: Denies: throat pain, enlarged tonsils, hoarseness, mouth pain, oral s ores, dry mouth, tinnitus, nasal congestion or post nasal drip Card: Denies: chest pain, palpitations, irregular heart rhythm, edema, swelling of feet/ankles, lightheadedness, syncope, pre-syncope, dyspnea on exertion, orthopnea, leg pain with exertion or acrocyanosis Resp: Denies: dyspnea, productive cough, non-productive cough, wheezing, stridor, pain on inspiration, change in phlegm color, hemoptysis or chest congestion GI: Denies: abdominal pain, nausea, vomiting, hematemesis, coffee ground emesis, dysphagia, heartburn, diarrhea, constipation, bloating, GI cramping, change in bowel habits, pain on defecation, hematochezia or melena : Denies: flank pain, dysuria, urinary frequency, urinary urgency, urinary hesitancy, nocturia or hematuria Musc: Denies: neck pain, back pain, extremity pain, joint pain, joint swelling, joint redness, joint stiffness or limited range of motion Neuro: Denies: headache(s), numbness in extremities, weakness in extremities, sensory changes, lack of coordination, difficulty walking, frequent falls, dizziness, vertigo, confusion, Slurred speech present, difficulty communicating thoughts or seizure-like activity Psych: Denies: anxiety, depression, mood swings, panic attacks, hopelessness or irritability Endo: Denies: polyuria, polydipsia, tired all the time, cold intolerance, excessive sweating, flushing or heat intolerance Jose/Lymph: Denies: easy bruising or easy bleeding All/Imm: Denies: tongue swelling, facial swelling or acute wheezing Medications/Allergies Home Medications Medication Instructions Recorded Confirmed Last Taken Type cholecalciferol (vitamin D3) 25 25 mcg PO QA 03/26/20 06/12/22 06/11/22 History mcg (1,000 unit) capsule cranberry 500 mg capsule 500 mg PO [facility] 03/26/20 06/12/22 06/11/22 History garlic 1,000 mg capsule 1,000 mg PO QAM 03/26/20 06/12/22 06/11/22 History multivitamin with minerals 1 tab PO [facility] 03/26/20 06/12/22 06/11/22 History (Hair,Skin and Nails tablet) turmeric root extract 500 mg 500 mg PO QAM 03/26/20 06/12/22 06/11/22 History capsule blood-glucose meter (Accu-Chek #1 ea 12/26/20 06/12/22 Unknown Rx Julee Plus Meter) lancets (Accu-Chek Multiclix #100 ea 12/26/20 06/12/22 Unknown Rx Lancet) albuterol sulfate 90 mcg/actuation 2 puff inhalation Q6H PRN 04/09/21 06/12/22 2 Weeks Ago Rx aerosol inhaler (ProAir HFA) shortness of breath or wheezing 90 ~07/29/21 days #3 ea Milk Thistle [place] Tabs 1 tab PO DAILY 06/13/21 06/12/22 06/11/22 History multivitamin 1 tab PO DAILY 06/13/21 06/12/22 06/11/22 History cpap supply #1 ea 09/10/21 06/12/22 Unknown Rx amlodipine 10 mg tablet 10 mg PO QAM #90 tabs 10/15/21 06/12/22 06/11/22 Rx atorvastatin 20 mg tablet 20 mg PO BEDTIME #90 tabs 10/15/21 06/12/22 06/11/22 Rx balance of nature 3 tab PO QAM 10/15/21 06/12/22 06/11/22 History duloxetine 60 mg capsule,delayed 120 mg PO QAM #90 caps 03/24/22 06/12/22 06/11/22 Rx release sprinkle furosemide 20 mg tablet 20 mg PO BID #180 tabs 03/24/22 06/12/22 06/11/22 Rx metformin 500 mg tablet,extended 500 mg PO BID 90 days #180 tabs 03/24/22 06/12/22 06/11/22 Rx release 24 hr mirtazapine 15 mg tablet 15 mg PO BEDTIME #30 tabs 03/24/22 06/12/22 06/11/22 Rx nitroglycerin 0.4 mg sublingual 0.4 mg sublingual Q5M PRN chest 03/24/22 06/12/22 Unknown Rx tablet pain #30 tabs primidone 50 mg tablet 100 mg PO QAM #90 tabs 03/24/22 06/12/22 06/11/22 Rx ropinirole 0.25 mg tablet 0.25 mg PO BEDTIME #90 tabs 03/24/22 06/12/22 06/11/22 Rx tolterodine 4 mg capsule,extended 8 mg PO QAM #90 caps 03/24/22 06/12/22 06/11/22 Rx release 24 hr levofloxacin 750 mg tablet 750 mg PO DAILY #7 tabs 06/10/22 06/12/22 06/11/22 Rx prednisone 20 mg tablet 20 mg PO BID #10 tabs 06/10/22 06/12/22 06/11/22 Rx losartan 50 mg tablet 50 mg PO QAM 06/12/22 06/12/22 06/11/22 History omega-3 fatty acids-fish oil 684 1 cap PO QAM 06/12/22 06/12/22 06/11/22 History mg-1,200 mg capsule,delayed release pantoprazole 40 mg tablet,delayed 40 mg PO QAM 06/12/22 06/12/22 06/11/22 History release potassium chloride 10 mEq 10 meq PO QAM 06/12/22 06/12/22 06/11/22 History tablet,extended release(part/cryst) (Klor-Con M) Allergies Allergy/AdvReac Type Severity Reaction Status Date / Time adhesive tape Allergy Unknown Verified 06/12/22 13:21 codeine Allergy ALGY-Hives Verified 06/12/22 13:21 quinine Allergy ALGY-Chills Verified 06/12/22 13:21 tramadol Allergy ALGY-Wheezi Verified 06/12/22 13:21 ng PFSH Acute PFSH: Medical History (Updated 06/12/22 @ 22:53 by David Keane MD) Anxiety and depression Asthma Chronic kidney disease Environmental allergies Essential tremor Fibromyalgia Hyperlipidemia Hypertension Insomnia Osteoarthritis Overactive bladder Portal vein thrombosis Restless leg Surgical History H/O section H/O esophagogastroduodenoscopy (08/12/21) S/P bilateral cataract extraction S/P carpal tunnel release S/P cholecystectomy S/P hysterectomy S/P knee replacement S/P nasal surgery Status post colonoscopy (08/12/21) Family History Brother Myocardial infarct Hypertension Father Myocardial infarct Hypertension Mother CHF (congestive heart failure) Hypertension Liver disease Cancer Social History Smoking and tobacco status: former smoker Alcohol intake: never Lives independently: Yes Household members: spouse Housing: House Marital status: Pets and animals: No Vitals/I&O/Wt Last Vital Signs Temp 97.8 F 06/12/22 20:00 Pulse 85 06/12/22 20:01 Resp 21 H 06/12/22 20:00 BP 148/69 06/12/22 20:00 Pulse Ox 95 06/12/22 20:01 O2 Del Method 06/12/22 19:50 FiO2 21 06/12/22 20:01 06/12/22 06/12/22 06/12/22 06:59 14:59 22:59 Intake Total 170 / 170 Balance 170 / 170 Weight last 48 hrs Weight 104.326 kg Physical Exam Narrative: General: No acute distress, AO x3, room air, anxious, mildly tachypneic HEENT: PERRLA, pupils bilaterally equal and reactive Chest: Bilateral bronchial breath sounds, occasional rhonchi over the lung field, good equal air entry CVS: S1-S2 regular, no murmurs, no tachycardia, no gallops, no rubs Abdomen: Soft, nontender, no organomegaly, bowel sounds present, morbidly obese, right flank pain present Neuro: No focal deficits, no facial deformity, AO x3, power 5/5 in all limbs Data : 06/13/22 03:03 06/13/22 03:03 Micro: Microbiology 06/12/22 12:02 Bacterial Antigens - Final Urine Kidney 06/12/22 18:34 Blood Culture - Preliminary Blood SPECIMEN COLLECTED 06/12/22 16:38 Blood Culture - Preliminary Blood SPECIMEN COLLECTED A&P Assessment and plan (1) Total bilirubin, elevated: Unknown etiology for now. Liver ultrasound and CT abdomen pelvis shows cholecystectomy. Also shows chronic portal vein thrombosis with hepatosplenomegaly. Check haptoglobin level, LDH, GGT, hepatitis panel. Will reconcile medications with patient again to see if any new medication or herbal products were used to rule out secondary to medication interaction. Check alcohol level. Check ESR, CRP for autoimmune hepatitis. For infectious work-up we will check tick panel, CMV, EBV serology, respiratory viral panel. Continue to monitor CMP daily. Gentle IV hydration for now. (2) Acute kidney injury superimposed on chronic kidney disease: Could be secondary to dehydration from poor oral intake in setting of use of Lasix and losartan as an outpatient. Medical reconciliation done for nephrotoxic drugs. Normal saline at 75 cc/h for 1 bag while monitoring for fluid overload. Monitor BMP daily. Check urine lites, urine creatinine, urine eosinophils. CT abdomen pelvis to rule out obstructive uropathy but consistent with right renal complex cyst versus mass. UA 3+ blood. Will discuss case with urology. (3) Shortness of breath: Patient has a history of asthma. States this sounds like her asthma exacerbation. Was also diagnosed of pneumonia as an outpatient though clinically pneumonia is less likely. Check CT chest without contrast. Oxygen supplementation keeping saturation over 88%. DuoNeb every 6 hour, budesonide twice daily. Hold off on steroids for now. Check proBNP, echocardiogram. (4) Asthma: (5) Leukocytosis: Could be secondary to recent steroid use in last 2 weeks. Check blood cultures, MRSA swab, sputum culture. UA consistent with UTI. For now start on Zosyn. Follow-up cultures. De-escalate antibiotics as per culture sensitivities. (6) Thrombocytopenia: New diagnosis. Could be secondary to acute illness. Continue to monitor. Infectious work-up as above. TTP less likely as patient's mentation is stable. (7) Hypothyroidism: New diagnosis. TSH elevated, check free T3, free T4. Depending on the levels will start on levothyroxine. (8) Hyponatremia: Baseline sodium levels normal. Could be secondary dehydration. Normal saline as above. Monitor BMP daily. Check urine lites. (9) Diabetes mellitus: Check A1c, insulin sliding scale. Qualifiers: Diabetes mellitus complication status: without complication Diabetes mellitus terminal gauger supervisor insulin use: without terminal gauger supervisor use Diabetes mellitus type: type 2 Qualified Code(s): E11.9 - Type 2 diabetes mellitus without complications (10) Hypertension: Goal blood pressure less than 140/90 mmHg with mean over 65. Qualifiers: Hypertension type: primary hypertension Qualified Code(s): I10 - Essential (primary) hypertension (11) Anxiety and depression: (12) Portal vein thrombosis: Plan Continue with chronic home medications. Analgesia: Tylenol as needed, morphine 1 mg every 4 hour as needed Glycemic control: Insulin sliding scale low-dose protocol Nutrition: Carb consistent diet CODE STATUS: Full code PUD prophylaxis: Protonix DVT prophylaxis: Heparin 5000 every 12 hourly Discharge planning: Home with caregiver once medically cleared Continue with care at [facility] This documentation was created by [employer] interactive designer software. Every effort was made to ensure accuracy of interactive designer. Any obvious errors or omissions should be clarified with the author of the document. Attestations Medical Necessity Statement*: Admission for more than 2 midnights for further evaluation and management of hyperbilirubinemia, SISSY, shortness of breath Time Spent in Patient Care: Greater than 35 minutes Coding Level of Care Code Acute It Analyst for Chg Fwd Diagnoses Total bilirubin, elevated R17 Acute kidney injury superimposed on chronic kidney disease N17.9; N18.9 Shortness of breath R06.02 Asthma J45.909 Leukocytosis D72.829 Thrombocytopenia D69.6 Hypothyroidism E03.9 Hyponatremia E87.1 Diabetes mellitus E11.9 Diabetes mellitus complication status: without complication Diabetes mellitus terminal gauger supervisor insulin use: without [facility] use Diabetes mellitus type: type 2 Hypertension I10 Hypertension type: primary hypertension Anxiety and depression F41.9; F32.9 Portal vein thrombosis I81
[2022-06-12 23:10] LABS: Reticulocyte % 0.9 % (0.5-2.0)
[2022-06-13] VITALS (11 sets, daily range): BP systolic 118–161; BP diastolic 69–85; PULSE 80–97; RESP 15–19; TEMP 36.7–37.1; O2SAT 89–96
[2022-06-13] MEDS: ipratropium-albuterol 3 mL Neb INHALATION ×4 (01:33→20:04)
[2022-06-13 01:40] LABS: Monoscreen Negative (Negative)
[2022-06-13 01:53] LABS: Alcohol Level < 10 mg/dL (0-10)
[2022-06-13 02:12] LABS: Potassium, Radom Urine 12 mmol/L; Urine Creatinine 41 mg/dL (28-217); Urine Random Chloride 23 mmol/L; Urine Random Sodium 42 mmol/L
[2022-06-13] MEDS: piperacillin-tazobactam 3.375 GM in sodium chloride 0.9% (plus) 50 ML IV ×3 (02:20→17:00)
[2022-06-13 03:32] LABS: Basophils # 0.1 10^3/uL (0.0-0.1); Basophils % 0.5 %; Eosinophils # 0.1 10^3/uL (0.0-0.8); Eosinophils % 0.9 %; Hematocrit 32.2 % (37.0-47.0); Hemoglobin 10.8 g/dL (11.5-15.3); Lymphocytes # 0.9 10^3/uL (0.8-4.8); Lymphocytes % 5.6 %; Mean Corpuscular HGB Conc 33.5 g/dL (30.0-36.0); Mean Corpuscular Hemoglobin 29.4 pg (28.0-34.0); Mean Corpuscular Volume 87.7 fl (81-99); Mean Platelet Volume 11.7 fL (7.4-10.4); Monocytes # 1.8 10^3/uL (0.2-0.9); Monocytes % 11.6 %; Neutrophils # 12.15 10^3/uL (1.8-7.7); Neutrophils % 76.7 %; Nucleated Red Blood Cells % 0 %; Platelet Count 101 10^3/cmm (130-400); Red Blood Count 3.67 10^6/uL (4.1-5.3); Red Cell Distribution Width 14.8 % (12.1-15.1); White Blood Count 15.8 10^3/uL (4.0-10.0)
[2022-06-13 03:57] LABS: Eosinophil Urine No Eosinophils Seen; Urine Eosinophil Count 0 (0-0)
[2022-06-13 03:58] LABS: Alanine Aminotransferase 22 U/L (0-33); Albumin Level 2.4 g/dL (3.5-5.2); Alkaline Phosphatase 190 U/L (35-105); Anion Gap 21.3 (5-19); Aspartate Amino Transferase 31 U/L (0-32); Blood Urea Nitrogen 63 mg/dL (8-23); Calcium 7.8 mg/dL (8.5-10.5); Carbon Dioxide 22 mmol/L (22-29); Chloride 95 mmol/L (98-107); Globulin 3.9 g/dL (1.3-4.6); Glomerular Filtration Rate 18.2 mL/min (90-130); Glucose 197 mg/dL (65-115); Magnesium 2.6 mg/dL (1.7-2.3); Osmolality Calculated 301 mOsm/kg (285-295); Phosphorus 5.2 mg/dL (2.5-4.5); Potassium 4.3 mmol/L (3.5-5.1); Sodium 134 mmol/L (136-145); Total Protein 6.3 g/dL (6.6-8.7)
[2022-06-13 04:53] LABS: Adenovirus Not Detected (NOT DETECT); Chlamydia Pneumoniae Not Detected (NOT DETECT); Coronavirus 229E,HKU1,NL63,OC4 Not Detected (NOT DETECT); Human Metapneumovirus Not Detected (NOT DETECT); Human Rhinovirus/Enterovirus Not Detected (NOT DETECT); Influenza A Not Detected (NOT DETECT); Influenza A H1 Not Detected (NOT DETECT); Influenza A H1-2009 Not Detected (NOT DETECT); Influenza A H3 Not Detected (NOT DETECT); Influenza B Not Detected (NOT DETECT); Mycoplasma Pneumoniae Not Detected (NOT DETECT); Parainfluenza Virus Type 1 Not Detected (NOT DETECT); Parainfluenza Virus Type 2 Not Detected (NOT DETECT); Parainfluenza Virus Type 3 Not Detected (NOT DETECT); Parainfluenza Virus Type 4 Not Detected (NOT DETECT); Respiratory Syncytial Virus A Not Detected (NOT DETECT); Respiratory Syncytial Virus B Not Detected (NOT DETECT); SARS-COV-2 Not Detected (NOT DETECT)
[2022-06-13] MEDS: primidone 50 mg Tablet 100 MG PO (05:46)
[2022-06-13] MEDS: amlodipine 10 mg Tablet PO (05:47)
[2022-06-13] MEDS: levothyroxine 88 mcg Tablet PO (05:47)
[2022-06-13 06:05] LABS: Adenovirus Not Detected (NOT DETECT); Chlamydia Pneumoniae Not Detected (NOT DETECT); Coronavirus 229E,HKU1,NL63,OC4 Not Detected (NOT DETECT); Human Metapneumovirus Not Detected (NOT DETECT); Human Rhinovirus/Enterovirus Not Detected (NOT DETECT); Influenza A Not Detected (NOT DETECT); Influenza A H1 Not Detected (NOT DETECT); Influenza A H1-2009 Not Detected (NOT DETECT); Influenza A H3 Not Detected (NOT DETECT); Influenza B Not Detected (NOT DETECT); Mycoplasma Pneumoniae Not Detected (NOT DETECT); Parainfluenza Virus Type 1 Not Detected (NOT DETECT); Parainfluenza Virus Type 2 Not Detected (NOT DETECT); Parainfluenza Virus Type 3 Not Detected (NOT DETECT); Parainfluenza Virus Type 4 Not Detected (NOT DETECT); Respiratory Syncytial Virus A Not Detected (NOT DETECT); Respiratory Syncytial Virus B Not Detected (NOT DETECT); SARS-COV-2 Not Detected (NOT DETECT)
[2022-06-13 06:20] LABS: Glucose Point of Care 157 mg/dL (70-110)
[2022-06-13] MEDS: budesonide 0.5 mg/2 mL Neb INHALATION ×2 (07:39→20:04)
[2022-06-13 08:59] LABS: Glucose Point of Care 158 mg/dL (70-110)
[2022-06-13] MEDS: duloxetine 60 mg Capsule PO (10:15)
[2022-06-13] MEDS: ferrous gluconate 324 mg Tablet PO ×2 (10:15→17:00)
[2022-06-13] MEDS: docusate sodium 100 mg Capsule PO ×2 (10:15→17:00)
[2022-06-13] MEDS: heparin 5,000 unit/mL INJ 1 mL 5000 UNIT SUBCUT ×2 (10:15→21:38)
[2022-06-13] MEDS: pantoprazole DR 40 mg Tablet PO (10:15)
[2022-06-13 11:31] LABS: Glucose Point of Care 212 mg/dL (70-110)
[2022-06-13] MEDS: insulin lispro 100 unit/1 mL SUBCUT ×3 (12:45→21:39)
--- NOTE | 2022-06-13 13:05 | PC.CHAP ---
Pastoral Care Encounter/Spiritual Assessment Type of Contact [] Declined pipe tester visit [] Patient/Family/Request visit [] Outpatient visit [] Follow-up visit [] Physician referral [] Code/Alert [x] Routine visit [] Staff referral [] Actively dying [x] Patient sleeping [] Family support [] [] Out of room [] Palliative care [] [] Receiving care in room [] Pre-surgical visit [] Trauma [] Long length of stay [] ICU visit [] Other: Relational/Emotional Strength [] Patient feels connected with others/family/visitors/staff [] Distress [] Loneliness/isolation [] Abandonment Spirituality of Patient [] Person of Maryam [] Attends Religious of their Maryam [] Believes in Prayer [] Reads Bible or Uatsdin materials [] There are Spiritual issues to be addressed Block Tester Interventions [] Prayer [] Active listening [] Non-anxious presence [] Spiritual/emotional support [] Crisis/trauma care [] Spiritual counseling [] Bereavement support [] Provided bereavement packet [] Provided Bible/devotional materials [] Provided toy/stuffed animal, coloring book to patient or family member [] Provided Communion [] Anointing/Tatum [] Salvation [x] Completed spiritual assessment [] Other: Impact on Illness or Injury [] Angry [] Fearful [] Anxious [] Often cries [] Exhaustion [] Unable to work [] Unable to attend baptist [] Unable to walk/stand [] Unable to read [] Unable to drive [] Unable to eat/drink [] Unable to sleep [] Unable to be with family [] Patient intubated [] Other: Summary Time spent with patient
--- NOTE | 2022-06-13 16:17 | P.PN_ITS ---
Subjective Subjective: Today morning on examination lying comfortably in bed. Still on room air. Less tachypneic. States feeling little better. Asking when he can go home. Denies any nausea, vomiting, headache, dizziness, diarrhea. Vitals/I&O/Wt Last Vital Signs Temp 98.7 F 06/13/22 12:00 Pulse 97 06/13/22 13:57 Resp 18 06/13/22 13:50 BP 161/85 06/13/22 12:00 Pulse Ox 95 06/13/22 13:50 O2 Del Method 06/13/22 13:50 FiO2 21 06/13/22 01:33 06/13/22 06/13/22 06/13/22 06:59 14:59 22:59 Intake Total 900 / 1120 0 / 0 Output Total 400 / 400 Balance 500 / 720 0 / 0 Weight last 48 hrs Weight 97.341 kg Weight 104.326 kg Physical Exam Narrative: General: No acute distress, AO x3, room air, anxious, mildly tachypneic HEENT: PERRLA, pupils bilaterally equal and reactive Chest: Bilateral bronchial breath sounds, occasional rhonchi over the lung field, good equal air entry CVS: S1-S2 regular, no murmurs, no tachycardia, no gallops, no rubs Abdomen: Soft, nontender, no organomegaly, bowel sounds present, morbidly obese, right flank pain present Neuro: No focal deficits, no facial deformity, AO x3, power 5/5 in all limbs Data : 06/13/22 03:03 06/13/22 03:03 Micro: Microbiology 06/12/22 17:30 MRSA Culture - Final Nose 06/12/22 17:30 Gram Stain - Final Sputum - Expectorated Sputum Sputum Culture - Preliminary 06/13/22 01:45 Urine Culture - Preliminary Urine,Clean Catch Gram Negative Rods 06/13/22 01:45 Legionella Urinary Antigen - Final Unknown Source 06/12/22 12:02 Bacterial Antigens - Final Urine Kidney 06/12/22 18:34 Blood Culture - Preliminary Blood SPECIMEN COLLECTED 06/12/22 16:38 Blood Culture - Preliminary Blood SPECIMEN COLLECTED A&P Assessment and plan (1) Total bilirubin, elevated: Unknown etiology for now. Liver ultrasound and CT abdomen pelvis shows cholecystectomy. Also shows chronic portal vein thrombosis with hepatosplenomegaly. Haptoglobin level high, LDH normal, GGT mildly elevated, hepatitis panel within normal limits. Medication reconciled to rule out drug-induced hepatitis. Alcohol level negative, Check ESR, CRP for autoimmune hepatitis. For infectious work-up tick panel, CMV, EBV serology, respiratory viral panel has been sent. Continue to monitor CMP daily. Gentle IV hydration for now. (2) Acute kidney injury superimposed on chronic kidney disease: Could be secondary to dehydration from poor oral intake in setting of use of Lasix and losartan as an outpatient. Medical reconciliation done for nephrotoxic drugs. Normal saline at 75 cc/h for 1 bag while monitoring for fluid overload. Monitor BMP daily. Appreciate urine studies. CT abdomen pelvis to rule out obstructive uropathy but consistent with right renal complex cyst versus mass. UA 3+ blood. Similar masses present in MRI few years ago. Will consult nephrology for further management with a concern for nephritic syndrome given 3+ blood in UA. (3) Shortness of breath: Patient has a history of asthma. States this sounds like her asthma exacerbation. CT chest negative for any consolidation. Oxygen supplementation keeping saturation over 88%. DuoNeb every 6 hour, budesonide twice daily. Hold off on steroids for now. Echocardiogram shows an EF of 55 to 60%, no regional wall motion abnormality. (4) Asthma: (5) Leukocytosis: Could be secondary to recent steroid use in last 2 weeks. Culture studies pending. MRSA positive. UA consistent with UTI. Continue with Zosyn. Follow-up cultures. De-escalate antibiotics as per culture sensitivities. (6) Thrombocytopenia: New diagnosis. Could be secondary to acute illness. Currently improving. Continue to monitor. No active signs of bleeding. Infectious work-up as above. TTP less likely as patient's mentation is stable. (7) Hypothyroidism: Levothyroxine 88 mcg daily. Will need a repeat thyroid panel as an outpatient within the next 2 months. (8) Hyponatremia: Baseline sodium levels normal. Could be secondary dehydration. Normal saline as above. Monitor BMP daily. Check urine lites. (9) Diabetes mellitus: Recently A1c 6.6. Increase exercise scale to high-dose protocol for now. Qualifiers: Diabetes mellitus type: type 2 Diabetes mellitus retirement insulin use: without rodent exterminator use Diabetes mellitus complication status: without complication Qualified Code(s): E11.9 - Type 2 diabetes mellitus without complications (10) Hypertension: Goal blood pressure less than 140/90 mmHg with mean over 65. Qualifiers: Hypertension type: primary hypertension Qualified Code(s): I10 - Essential (primary) hypertension (11) Anxiety and depression: (12) Portal vein thrombosis: Plan Continue with chronic home medications. Analgesia: Tylenol as needed, morphine 1 mg every 4 hour as needed Glycemic control: Insulin sliding scale low-dose protocol Nutrition: Carb consistent diet CODE STATUS: Full code PUD prophylaxis: Protonix DVT prophylaxis: Heparin 5000 every 12 hourly Discharge planning: Home with caregiver once medically cleared Continue with care at [facility] This documentation was created by [employer] wardsperson software. Every effort was made to ensure accuracy of wardsperson. Any obvious errors or omissions should be clarified with the author of the document. Attestations Medical Necessity Statement*: Requires further hospitalization for management of hyperbilirubinemia, acute kidney injury with hyponatremia, UTI while further work-up was done Time Spent in Patient Care: Greater than 35 minutes Coding Level of Care Code Acute Major Account Representative for [facility] Fwd Diagnoses Total bilirubin, elevated R17 Acute kidney injury superimposed on chronic kidney disease N17.9; N18.9 Shortness of breath R06.02 Asthma J45.909 Leukocytosis D72.829 Thrombocytopenia D69.6 Hypothyroidism E03.9 Hyponatremia E87.1 Diabetes mellitus E11.9 Diabetes mellitus type: type 2 Diabetes mellitus retirement insulin use: without retirement use Diabetes mellitus complication status: without complication Hypertension I10 Hypertension type: primary hypertension Anxiety and depression F41.9; F32.9 Portal vein thrombosis I81
[2022-06-13 16:55] LABS: Erythrocyte Sedimentation Rate 46 mm/hr (0-15)
[2022-06-13] MEDS: sodium chloride 0.9% 1,000 ML 100 ML IV (17:00)
[2022-06-13 17:23] LABS: Glucose Point of Care 166 mg/dL (70-110)
--- NOTE | 2022-06-13 18:33 | PM.CONSULT ---
Providers/Reason For Consult Consulting Physician/Specialty*: Deysi Irizarry DO, telenephrology Reason for Consult*: Acute Kidney Injury Requesting Physician: David Keane MD Attending Physician: aDvid Keane MD Primary Care Provider: MATTHEW Norman History of Present Illness History of Present Illness Lisa Rivera is a 71 year old female sent to ER by primary care for evaluation of acute kidney injury and hyperbilirubinemia. Being treated for pneumonia with levaquin and steroids. States she was taking 2 Aleve every 4h for 2 weeks for chest pain. Baseline sCr 0.8 mg/dL 03/2022 Review of Systems Narrative: Denies current chest pain, states breathing is better, Medications/Allergies Home Medications Medication Instructions Recorded Confirmed Last Taken Type cholecalciferol (vitamin D3) 25 25 mcg PO QAM 03/26/20 06/12/22 06/11/22 History mcg (1,000 unit) capsule cranberry 500 mg capsule 500 mg PO QAM 03/26/20 06/12/22 06/11/22 History garlic 1,000 mg capsule 1,000 mg PO QAM 03/26/20 06/12/22 06/11/22 History multivitamin with minerals 1 tab PO QAM 03/26/20 06/12/22 06/11/22 History (Hair,Skin and Nails tablet) turmeric root extract 500 mg 500 mg PO QAM 03/26/20 06/12/22 06/11/22 History capsule blood-glucose meter (Accu-Chek #1 ea 12/26/20 06/12/22 Unknown Rx Julee Plus Meter) lancets (Accu-Chek Multiclix #100 ea 12/26/20 06/12/22 Unknown Rx Lancet) albuterol sulfate 90 mcg/actuation 2 puff inhalation Q6H PRN 04/09/21 06/12/22 2 Weeks Ago Rx aerosol inhaler (ProAir HFA) shortness of breath or wheezing 90 ~07/29/21 days #3 ea Milk Thistle [place] Tabs 1 tab PO DAILY 06/13/21 06/12/22 06/11/22 History multivitamin 1 tab PO DAILY 06/13/21 06/12/22 06/11/22 History cpap supply #1 ea 09/10/21 06/12/22 Unknown Rx amlodipine 10 mg tablet 10 mg PO QAM #90 tabs 10/15/21 06/12/22 06/11/22 Rx atorvastatin 20 mg tablet 20 mg PO BEDTIME #90 tabs 10/15/21 06/12/22 06/11/22 Rx balance of nature 3 tab PO QAM 10/15/21 06/12/22 06/11/22 History duloxetine 60 mg capsule,delayed 120 mg PO QAM #90 caps 03/24/22 06/12/22 06/11/22 Rx release sprinkle furosemide 20 mg tablet 20 mg PO BID #180 tabs 03/24/22 06/12/22 06/11/22 Rx metformin 500 mg tablet,extended 500 mg PO BID 90 days #180 tabs 03/24/22 06/12/22 06/11/22 Rx release 24 hr mirtazapine 15 mg tablet 15 mg PO BEDTIME #30 tabs 03/24/22 06/12/22 06/11/22 Rx nitroglycerin 0.4 mg sublingual 0.4 mg sublingual Q5M PRN chest 03/24/22 06/12/22 Unknown Rx tablet pain #30 tabs primidone 50 mg tablet 100 mg PO QAM #90 tabs 03/24/22 06/12/22 06/11/22 Rx ropinirole 0.25 mg tablet 0.25 mg PO BEDTIME #90 tabs 03/24/22 06/12/22 06/11/22 Rx tolterodine 4 mg capsule,extended 8 mg PO QAM #90 caps 03/24/22 06/12/22 06/11/22 Rx release 24 hr levofloxacin 750 mg tablet 750 mg PO DAILY #7 tabs 06/10/22 06/12/22 06/11/22 Rx prednisone 20 mg tablet 20 mg PO BID #10 tabs 06/10/22 06/12/22 06/11/22 Rx losartan 50 mg tablet 50 mg PO QAM 06/12/22 06/12/22 06/11/22 History omega-3 fatty acids-fish oil 684 1 cap PO QAM 06/12/22 06/12/22 06/11/22 History mg-1,200 mg capsule,delayed release pantoprazole 40 mg tablet,delayed 40 mg PO QAM 10/02/2606/12/22 06/11/22 History release potassium chloride 10 mEq 10 meq PO QAM 06/12/22 06/12/22 06/11/22 History tablet,extended release(part/cryst) (Barb-Con M) Allergies Allergy/AdvReac Type Severity Reaction Status Date / Time adhesive tape Allergy Unknown Verified 06/12/22 13:21 codeine Allergy ALGY-Hives Verified 06/12/22 13:21 quinine Allergy ALGY-Chills Verified 06/12/22 13:21 tramadol Allergy ALGY-Wheezi Verified 06/12/22 13:21 ng Current Medications Generic Name Dose Route Start Last Admin Trade Name Freq PRN Reason Stop Dose Admin Albuterol/Ipratropium 3 ml 06/12/22 20:00 06/13/22 13:50 Ipratropium-Albuterol 3 Ml Neb INHALATION 3 ml Q6H.RESP KINJAL Administration Amlodipine Besylate 10 mg 06/13/22 06:00 06/13/22 05:47 Amlodipine 10 Mg Tablet PO 10 mg QAM KINJAL Administration Budesonide 0.5 mg 06/12/22 20:00 06/13/22 07:39 Budesonide 0.5 Mg/2 Ml Neb INHALATION 0.5 mg BID.RESPIRATORY KINJAL Administration Docusate Sodium 100 mg 06/12/22 18:00 06/13/22 17:00 Docusate Sodium 100 Mg Capsule PO 100 mg BID KINJAL Administration Duloxetine HCl 60 mg 06/13/22 09:00 06/13/22 10:15 Duloxetine 60 Mg Capsule PO 60 mg DAILY KINJAL Administration Fentanyl 1 patch 06/12/22 18:00 06/12/22 18:46 Fentanyl 50 Mcg Patch TRANSDERMA 1 patch Q72H KINJAL Administration Ferrous Gluconate 324 mg 06/12/22 18:00 06/13/22 17:00 Ferrous Gluconate 324 Mg Tablet PO 324 mg BIDWM KINJAL Administration Heparin Sodium (Porcine) 5,000 unit 06/12/22 20:00 06/13/22 10:15 Heparin 5,000 Unit/Ml Inj 1 Ml SUBCUT 5,000 unit Q12H KINJAL Administration Piperacillin Sod/Tazobactam 50 mls @ 12.5 mls/hr 06/12/22 18:00 06/13/22 17:00 Sod 3.375 gm/ Sodium Chloride IV 100 mls/hr Q8H KINJAL Administration Protocol As Directed Sodium Chloride 1,000 mls @ 100 mls/hr 06/13/22 16:15 06/13/22 17:00 Sodium Chloride 0.9% IV 100 mls/hr .Q10H KINJAL Administration Insulin Human Lispro 0 unit 06/12/22 18:00 06/13/22 17:01 Insulin Lispro 100 Unit/1 Ml SUBCUT 6 unit WM&BEDTIME KINJAL Administration Protocol Levothyroxine Sodium 88 mcg 06/13/22 06:00 06/13/22 05:47 Levothyroxine 88 Mcg Tablet PO 88 mcg QAM KINJAL Administration Mirtazapine 15 mg 06/12/22 21:00 06/12/22 20:39 Mirtazapine 15 Mg Tablet PO 15 mg BEDTIME KINJAL Administration Pantoprazole Sodium 40 mg 06/13/22 09:00 06/13/22 10:[address] 40 Mg Tablet PO 40 mg DAILY KINJAL Administration Primidone 100 mg 06/13/22 06:00 06/13/22 05:46 Primidone 50 Mg Tablet PO 100 mg QAM KINJAL Administration Ropinirole HCl 0.25 mg 06/12/22 21:00 06/12/22 20:39 Ropinirole 0.25 Mg Tablet PO 0.25 mg BEDTIME KINJAL Administration Tolterodine Tartrate 8 mg 06/13/22 06:00 06/13/22 05:49 Tolterodine La 2 Mg Capsule PO Not Given QAM KINJAL PFSH Acute PFSH: Medical History Anxiety and depression Asthma Chronic kidney disease Environmental allergies Essential tremor Fibromyalgia Hyperlipidemia Hypertension Insomnia Osteoarthritis Overactive bladder Portal vein thrombosis Restless leg Surgical History H/O section H/O esophagogastroduodenoscopy (08/12/21) S/P bilateral cataract extraction S/P carpal tunnel release S/P cholecystectomy S/P hysterectomy S/P knee replacement S/P nasal surgery Status post colonoscopy (08/12/21) Family History Brother Myocardial infarct Hypertension Father Myocardial infarct Hypertension Mother CHF (congestive heart failure) Hypertension Liver disease Cancer Social History (Reviewed 06/13/22 @ 18:44 by GHULAM Herrera Smoking and tobacco status: former smoker Alcohol intake: never Lives independently: Yes Household members: spouse Housing: House Marital status: Pets and animals: No Vitals/I&O/Wt Last Vital Signs Temp 98.5 F 06/13/22 16:00 Pulse 86 06/13/22 16:00 Resp 18 06/13/22 16:00 BP 118/69 06/13/22 16:00 Pulse Ox 89 L 06/13/22 16:00 O2 Del Method 06/13/22 13:50 FiO2 21 06/13/22 01:33 Current VS: 134/63, P 84, O2 sat RA 93% 06/13/22 06/13/22 06/13/22 06:59 14:59 22:59 Intake Total 900 / 1120 50 / 50 240 / 290 Output Total 400 / 400 1600 / 1600 Balance 500 / 720 50 / 50 -1360 / -1310 Weight last 48 hrs Weight 97.341 kg Weight 104.326 kg Physical Exam Const: COMMON NORMALS: no acute distress and alert Extremity: NARRATIVE EXTREMITY EXAM: no pitting edema Neuro: SENSORIUM/ORIENTATION: Yes alert Data : 06/13/22 03:03 06/13/22 03:03 Other Labs: Ca 7.8, phos 5.2, Mg 2.6 Bili decreased to 3 from 8.4 albumin 2.4, Graciela 42, FeNa 2% urinalysis + RBC, + WBC, no eosinophils, no albuminuria Micro: Microbiology 06/12/22 16:38 Blood Culture - Preliminary Blood NEGATIVE TO DATE 06/12/22 17:30 MRSA Culture - Final Nose 06/12/22 17:30 Gram Stain - Final Sputum - Expectorated Sputum Sputum Culture - Preliminary 06/13/22 01:45 Urine Culture - Preliminary Urine,Clean Catch Gram Negative Rods 06/13/22 01:45 Legionella Urinary Antigen - Final Unknown Source 06/12/22 12:02 Bacterial Antigens - Final Urine Kidney 06/12/22 18:34 Blood Culture - Preliminary Blood SPECIMEN COLLECTED Echo: Radiologist's impression: LV systolic function is normal with EF of 55 to 60%. ?Mild mitral regurgitation ?Mild tricuspid regurgitation CT Chest: Radiologist's impression: 1.?Dependent atelectasis. No acute pulmonary findings otherwise. 2. Coronary calcification. 3. Hepatosplenomegaly, partially visualized. ? CT Abd/Pel: Radiologist's impression: Liver: The liver is somewhat prominent in size but is homogeneous. Gallbladder and bile ducts: Prior cholecystectomy. No biliary ductal dilatation allowing for that. Pancreas: No peripancreatic inflammation. No pancreatic ductal dilation. Spleen: The spleen appears enlarged but is homogeneous. Adrenal glands: No adrenal mass. Kidneys and ureters: No hydronephrosis. No nephrolithiasis. There is a 3.3 cm right renal low-attenuation lesion with indeterminate attenuation measurements (3:42 and 5:44). Stomach and bowel: No bowel obstruction. No diverticulitis. Appendix: No evidence of appendicitis. Intraperitoneal space: No ascites or pneumoperitoneum. Vasculature: No abdominal aortic aneurysm. Suspect chronic thrombosis of the portal vein with cavernous transformation . Also suspect enlargement of the proper hepatic artery as a compensatory mechanism explaining the Doppler finding on the earlier ultrasound exam. Dilated, tortuous retroperitoneal collateral veins reflecting chronic portal vein thrombosis and portal hypertension. A&P Assessment and plan (1) Acute kidney injury: seen via telemedicine with assistance of RN at bedside Plan 1. Acute kidney injury, excellent urine output. Likely due to high dose NSAIDs, duretic and ARB. 2. UTI, GNR 3. Chronic liver disease with chronic portal vein thrombosis 4. Hyponatremia, improved with hydration 5. Right renal cyst/mass Recommend: continue to hold NSAIDs, duretic and ARB. Continue IVF hydration. Will order serologic GN workup. Consult Attestations Medical Necessity Statement: see above Time Spent in Patient Care: 16 - 35 minutes Coding Level of Care Code Acute Recreation Aide for [facility] Ray Diagnoses Acute kidney injury N17.9
[2022-06-13 21:36] LABS: Glucose Point of Care 172 mg/dL (70-110)
[2022-06-13] MEDS: ropinirole 0.25 mg Tablet PO (21:38)
[2022-06-13] MEDS: mirtazapine 15 mg Tablet PO (21:38)
[2022-06-14] VITALS (13 sets, daily range): BP systolic 115–170; BP diastolic 69–90; PULSE 74–104; RESP 15–22; TEMP 36.3–36.8; O2SAT 91–99
[2022-06-14] MEDS: sodium chloride 0.9% 1,000 ML 100 ML IV ×2 (00:51→21:28)
[2022-06-14] MEDS: piperacillin-tazobactam 3.375 GM in sodium chloride 0.9% (plus) 50 ML IV ×2 (00:51→09:37)
[2022-06-14] MEDS: ipratropium-albuterol 3 mL Neb INHALATION ×4 (02:30→20:15)
[2022-06-14 03:16] LABS: Basophils # 0.1 10^3/uL (0.0-0.1); Basophils % 0.8 %; Eosinophils # 0.2 10^3/uL (0.0-0.8); Eosinophils % 2.4 %; Hematocrit 31.4 % (37.0-47.0); Hemoglobin 9.9 g/dL (11.5-15.3); Lymphocytes # 1.1 10^3/uL (0.8-4.8); Lymphocytes % 10.7 %; Mean Corpuscular HGB Conc 31.5 g/dL (30.0-36.0); Mean Corpuscular Hemoglobin 29.9 pg (28.0-34.0); Mean Corpuscular Volume 94.9 fl (81-99); Monocytes # 1.3 10^3/uL (0.2-0.9); Monocytes % 13.2 %; Neutrophils # 6.82 10^3/uL (1.8-7.7); Neutrophils % 68.5 %; Nucleated Red Blood Cells % 0 %; Platelet Count 106 10^3/cmm (130-400); Red Blood Count 3.31 10^6/uL (4.1-5.3); Red Cell Distribution Width 14.9 % (12.1-15.1)
[2022-06-14 03:35] LABS: Alanine Aminotransferase 20 U/L (0-33); Albumin Level 1.9 g/dL (3.5-5.2); Alkaline Phosphatase 148 U/L (35-105); Anion Gap 18.2 (5-19); Aspartate Amino Transferase 28 U/L (0-32); Blood Urea Nitrogen 47 mg/dL (8-23); Calcium 7.3 mg/dL (8.5-10.5); Carbon Dioxide 19 mmol/L (22-29); Chloride 100 mmol/L (98-107); Globulin 4.1 g/dL (1.3-4.6); Glomerular Filtration Rate 17.4 mL/min (90-130); Glucose 109 mg/dL (65-115); Osmolality Calculated 289 mOsm/kg (285-295); Potassium 4.2 mmol/L (3.5-5.1); Sodium 133 mmol/L (136-145); Total Bilirubin 2.5 mg/dL (0.15-1.2)
[2022-06-14] MEDS: levothyroxine 88 mcg Tablet PO (04:55)
[2022-06-14] MEDS: amlodipine 10 mg Tablet PO (04:55)
[2022-06-14] MEDS: primidone 50 mg Tablet 100 MG PO (04:55)
[2022-06-14 05:28] LABS: Creatine Phosphokinase 15 U/L (26-192)
--- NOTE | 2022-06-14 05:47 | PC.NURSE ---
Addendum entered by Lucrecia Pearl RN 06/14/22 06:21: Dr. Flores ordered to change to non-LA form and dosing. Original Note: Dr. Flores notified patient has Detrol LA due that she takes at home. We do not have any of the LA, we only have the non-LA. Awaiting orders.
[2022-06-14 06:35] LABS: Glucose Point of Care 125 mg/dL (70-110)
--- NOTE | 2022-06-14 08:00 | P.PN_ITS ---
Subjective Subjective: feeling a little better. Baltazar removed, ambulated Vitals/I&O/Wt Last Vital Signs Temp 97.7 F 06/14/22 05:50 Pulse 104 H 06/14/22 05:50 Resp 22 H 06/14/22 05:50 BP 115/73 06/14/22 05:50 Pulse Ox 92 06/14/22 05:50 O2 Del Method 06/14/22 02:07 FiO2 21 06/13/22 20:09 06/13/22 06/14/22 06/14/22 22:59 06:59 14:59 Intake Total 290 / 340 835 / 1175 Output Total 2049 / 2049 400 / 2450 Balance -1760 / -1710 435 / -1275 Weight last 48 hrs Weight 97.658 kg Weight 97.386 kg Weight 97.341 kg Weight 104.326 kg Physical Exam Const: COMMON NORMALS: no acute distress and alert Neuro: SENSORIUM/ORIENTATION: Yes alert Urinary Catheter Management: Baltazar: Cath Placed During This Visit: no Reason for Continuing Indwelling Catheter: Other Data : 06/14/22 02:25 06/14/22 02:25 Micro: Microbiology 06/12/22 18:34 Blood Culture - Preliminary Blood NEGATIVE TO DATE 06/12/22 16:38 Blood Culture - Preliminary Blood NEGATIVE TO DATE 06/12/22 17:30 MRSA Culture - Final Nose 06/12/22 17:30 Gram Stain - Final Sputum - Expectorated Sputum Sputum Culture - Preliminary 06/13/22 01:45 Urine Culture - Preliminary Urine,Clean Catch Gram Negative Rods A&P Assessment and plan (1) Acute kidney injury: seen via telemedicine with assistance of RN at bedside Plan 1. Acute kidney injury, excellent urine output. Likely due to high dose NSAIDs, duretic and ARB. Renal function not improved as of yet. GN workup pending 2. UTI, GNR 3. Chronic liver disease with chronic portal vein thrombosis. Bilirubin continues to improved Recommend: continue to hold NSAIDs, duretic and ARB. Can discontinue IVF hydration. Attestations Medical Necessity Statement*: see above Coding Level of Care Code Acute Sr. Logistics Analyst for Deonna Bell Diagnoses Acute kidney injury N17.9
[2022-06-14] MEDS: budesonide 0.5 mg/2 mL Neb INHALATION ×2 (08:14→20:15)
[2022-06-14] MEDS: heparin 5,000 unit/mL INJ 1 mL 5000 UNIT SUBCUT ×2 (08:15→21:29)
[2022-06-14] MEDS: duloxetine 60 mg Capsule PO (08:15)
[2022-06-14] MEDS: pantoprazole DR 40 mg Tablet PO (08:15)
[2022-06-14] MEDS: ferrous gluconate 324 mg Tablet PO ×2 (08:15→17:39)
[2022-06-14] MEDS: tolterodine 2 mg Tablet 4 MG PO ×2 (08:15→17:39)
[2022-06-14] MEDS: docusate sodium 100 mg Capsule PO ×2 (08:15→17:39)
[2022-06-14 09:50] LABS: Complement C3 128 mg/dL (90-180)
[2022-06-14 10:05] LABS: HIV 1 & 2 Antibody Non-Reactive (Non-Reactiv); HIV 1 & 2 Antigen Non-Reactive (Non-Reactiv)
[2022-06-14 13:46] LABS: Glucose Point of Care 156 mg/dL (70-110)
[2022-06-14] MEDS: cefTRIAXone 1,000 MG in sodium chloride 0.9% (plus) 50 ML 100 MG IV (13:52)
[2022-06-14] MEDS: insulin glargine 100 units/1 mL 10 UNIT SUBCUT (13:53)
[2022-06-14 16:58] LABS: Glucose Point of Care 198 mg/dL (70-110)
[2022-06-14] MEDS: insulin lispro 100 unit/1 mL SUBCUT ×2 (17:39→21:29)
--- NOTE | 2022-06-14 17:55 | PM.PN ---
Subjective Subjective: No evidence overnight. Has been having good urine output. States feeling better. Wanting to go home. Vitals/I&O/Wt Last Vital Signs Temp 97.9 F 06/14/22 16:00 Pulse 87 06/14/22 16:00 Resp 18 06/14/22 16:00 BP 142/73 06/14/22 16:00 Pulse Ox 95 06/14/22 16:00 O2 Del Method 06/14/22 16:00 FiO2 21 06/14/22 08:26 06/14/22 06/14/22 06/14/22 06:59 14:59 22:59 Intake Total 835 / 1175 480 / 480 Output Total 400 / 2450 Balance 435 / -1275 480 / 480 Weight last 48 hrs Weight 97.658 kg Weight 97.386 kg Weight 97.341 kg Physical Exam Narrative: General: No acute distress, AO x3, room air, anxious, mildly tachypneic HEENT: PERRLA, pupils bilaterally equal and reactive Chest: Bilateral bronchial breath sounds, occasional rhonchi over the lung field, good equal air entry CVS: S1-S2 regular, no murmurs, no tachycardia, no gallops, no rubs Abdomen: Soft, nontender, no organomegaly, bowel sounds present, morbidly obese, right flank pain present Neuro: No focal deficits, no facial deformity, AO x3, power 5/5 in all limbs Urinary Catheter Management: Baltazar: Cath Placed During This Visit: no Reason for Continuing Indwelling Catheter: Other Data : 06/15/22 03:17 06/15/22 15:12 Micro: Microbiology 06/13/22 01:45 Urine Culture - Final Urine,Clean Catch Escherichia coli 06/12/22 17:30 Gram Stain - Final Sputum - Expectorated Sputum Sputum Culture - Preliminary Coag positive Staphylococcus 06/12/22 18:34 Blood Culture - Preliminary Blood NEGATIVE TO DATE 06/12/22 16:38 Blood Culture - Preliminary Blood NEGATIVE TO DATE 06/12/22 17:30 MRSA Culture - Final Nose A&P Assessment and plan (1) Total bilirubin, elevated: Unknown etiology for now. Liver ultrasound and CT abdomen pelvis shows cholecystectomy. Also shows chronic portal vein thrombosis with hepatosplenomegaly. Haptoglobin level high, LDH normal, GGT mildly elevated, hepatitis panel within normal limits. Medication reconciled to rule out drug-induced hepatitis. Alcohol level negative, ESR CRP mildly elevated. Respiratory viral panel negative. Rest of the infectious work-up still pending. Bilirubin trending down. Gentle IV hydration for now. (2) Acute kidney injury superimposed on chronic kidney disease: Could be secondary to dehydration from poor oral intake in setting of use of Lasix and losartan as an outpatient. Medical reconciliation done for nephrotoxic drugs. Concern for autoimmune nephrotic syndrome. Will consult nephrology. Continued IV hydration. Will discuss with nephrology regarding starting of IV steroids while monitoring potassium. Monitor BMP daily. Appreciate urine studies. CT abdomen pelvis to rule out obstructive uropathy but consistent with right renal complex cyst versus mass. UA 3+ blood. Similar masses present in MRI few years ago. Will consult nephrology for further management with a concern for nephritic syndrome given 3+ blood in UA. (3) Shortness of breath: Patient has a history of asthma. States this sounds like her asthma exacerbation. CT chest negative for any consolidation. Oxygen supplementation keeping saturation over 88%. DuoNeb every 6 hour, budesonide twice daily. Hold off on steroids for now. Echocardiogram shows an EF of 55 to 60%, no regional wall motion abnormality. (4) Asthma: (5) Leukocytosis: Could be secondary to recent steroid use in last 2 weeks. Culture studies pending. MRSA positive. UA consistent with UTI. Continue with Zosyn. Follow-up cultures. De-escalate antibiotics as per culture sensitivities. (6) Thrombocytopenia: New diagnosis. Could be secondary to acute illness. Currently improving. Continue to monitor. No active signs of bleeding. Infectious work-up as above. TTP less likely as patient's mentation is stable. (7) Hypothyroidism: Levothyroxine 88 mcg daily. Will need a repeat thyroid panel as an outpatient within the next 2 months. (8) Hyponatremia: Baseline sodium levels normal. Could be secondary dehydration. Normal saline as above. Monitor BMP daily. Check urine lites. (9) Diabetes mellitus: Recently A1c 6.6. Increase exercise scale to high-dose protocol for now. Qualifiers: Diabetes mellitus complication status: without complication Diabetes mellitus ferry terminal agent insulin use: without ferry terminal agent use Diabetes mellitus type: type 2 Qualified Code(s): E11.9 - Type 2 diabetes mellitus without complications (10) Hypertension: Goal blood pressure less than 140/90 mmHg with mean over 65. Qualifiers: Hypertension type: primary hypertension Qualified Code(s): I10 - Essential (primary) hypertension (11) Anxiety and depression: (12) Portal vein thrombosis: Plan Continue with chronic home medications. Analgesia: Tylenol as needed, morphine 1 mg every 4 hour as needed Glycemic control: Insulin sliding scale low-dose protocol Nutrition: Carb consistent diet CODE STATUS: Full code PUD prophylaxis: Protonix DVT prophylaxis: Heparin 5000 every 12 hourly Discharge planning: Home with caregiver once medically cleared [facility] with care at [facility] This documentation was created by [employer] toe stripper software. Every effort was made to ensure accuracy of toe stripper. Any obvious errors or omissions should be clarified with the author of the document. Attestations Medical Necessity Statement*: Requires further hospitalization for management of hyperbilirubinemia, SISSY of unknown etiology Time Spent in Patient Care: Greater than 35 minutes Coding Level of Care Code Acute Bundler Seasonal Greenery for Chg Fwd Diagnoses Total bilirubin, elevated R17 Acute kidney injury superimposed on chronic kidney disease N17.9; N18.9 Shortness of breath R06.02 Asthma J45.909 Leukocytosis D72.829 Thrombocytopenia D69.6 Hypothyroidism E03.9 Hyponatremia E87.1 Diabetes mellitus E11.9 Diabetes mellitus complication status: without complication Diabetes mellitus ferry terminal agent insulin use: without penitentiary use Diabetes mellitus type: type 2 Hypertension I10 Hypertension type: primary hypertension Anxiety and depression F41.9; F32.9 Portal vein thrombosis I81
[2022-06-14 21:05] LABS: Glucose Point of Care 190 mg/dL (70-110)
[2022-06-14] MEDS: ropinirole 0.25 mg Tablet PO (21:29)
[2022-06-14] MEDS: mirtazapine 15 mg Tablet PO (21:29)
[2022-06-15] VITALS (10 sets, daily range): BP systolic 117–155; BP diastolic 58–83; PULSE 83–98; RESP 10–16; TEMP 36.5–36.9; O2SAT 93–99
[2022-06-15] MEDS: ipratropium-albuterol 3 mL Neb INHALATION ×3 (03:10→14:22)
[2022-06-15 04:10] LABS: Basophils # 0.1 10^3/uL (0.0-0.1); Basophils % 0.4 %; Hematocrit 31.8 % (37.0-47.0); Hemoglobin 10.1 g/dL (11.5-15.3); Lymphocytes # 0.6 10^3/uL (0.8-4.8); Lymphocytes % 4.2 %; Mean Corpuscular HGB Conc 31.8 g/dL (30.0-36.0); Mean Corpuscular Hemoglobin 29.1 pg (28.0-34.0); Mean Corpuscular Volume 91.6 fl (81-99); Mean Platelet Volume 10.5 fL (7.4-10.4); Monocytes # 0.3 10^3/uL (0.2-0.9); Monocytes % 2.1 %; Neutrophils # 11.75 10^3/uL (1.8-7.7); Neutrophils % 86.2 %; Nucleated Red Blood Cells % 0 %; Platelet Count 209 10^3/cmm (130-400); Red Blood Count 3.47 10^6/uL (4.1-5.3); Red Cell Distribution Width 14.8 % (12.1-15.1); White Blood Count 13.6 10^3/uL (4.0-10.0)
[2022-06-15] MEDS: amlodipine 10 mg Tablet PO (04:44)
[2022-06-15] MEDS: levothyroxine 88 mcg Tablet PO (04:44)
[2022-06-15] MEDS: primidone 50 mg Tablet 100 MG PO (04:44)
[2022-06-15 06:57] LABS: Glucose Point of Care 192 mg/dL (70-110)
--- NOTE | 2022-06-15 07:10 | P.PN_ITS ---
Subjective Subjective: feels well, no dyspnea, ambulating Vitals/I&O/Wt Last Vital Signs Temp 98 F 06/15/22 04:00 Pulse 83 06/15/22 04:00 Resp 15 06/15/22 04:00 BP 117/58 06/15/22 04:00 Pulse Ox 93 06/15/22 04:00 O2 Del Method 06/15/22 03:10 FiO2 21 06/14/22 08:26 06/14/22 06/15/22 06/15/22 22:59 06:59 14:59 Intake Total 480 / 1960 Output Total 900 / 900 475 / 1375 Balance -420 / 1060 -475 / 585 Weight last 48 hrs Weight 97.931 kg Weight 97.658 kg Weight 97.386 kg Physical Exam Const: COMMON NORMALS: no acute distress and alert Neuro: SENSORIUM/ORIENTATION: Yes alert Urinary Catheter Management: Baltazar: Cath Placed During This Visit: yes, but has since been removed by the nurse Reason for Continuing Indwelling Catheter: Decision to DC Catheter Date Urinary Catheter Removed: 06/14/22 Time Urinary Catheter Discontinued: 12:00 Data : 06/15/22 03:17 06/15/22 03:17 Micro: Microbiology 06/13/22 01:45 Urine Culture - Final Urine,Clean Catch Escherichia coli 06/12/22 17:30 Gram Stain - Final Sputum - Expectorated Sputum Sputum Culture - Preliminary Coag positive Staphylococcus A&P Assessment and plan (1) Acute kidney injury: seen via telemedicine with assistance of RN at bedside Plan 1. Acute kidney injury, good urine output. Likely due to high dose NSAIDs, diuretic and ARB. Renal function improving. Complements normal. Remainder of GN workup pending. Keep off ARB for now. 2. Hyponatremia likely due to IVF hydration. D/C IVF. Will give one dose IV furosemide 3. Hyperkalemia. Restrict K in diet. Will give Furosemide. Repeat later today. 4. UTI, E.coli, can change antibiotic to Augmentin 5. Complex renal cyst, follow-up as outpatient Recommend: see above Attestations Medical Necessity Statement*: see above Time Spent in Patient Care: 16 - 35 minutes Coding Level of Care Code Acute Hand Polisher for rich Bell Diagnoses Acute kidney injury N17.9
[2022-06-15 08:09] LABS: Alanine Aminotransferase 20 U/L (0-33); Albumin Level 2.5 g/dL (3.5-5.2); Alkaline Phosphatase 162 U/L (35-105); Anion Gap 15.7 (5-19); Aspartate Amino Transferase 23 U/L (0-32); Blood Urea Nitrogen 40 mg/dL (8-23); Calcium 7.9 mg/dL (8.5-10.5); Carbon Dioxide 20 mmol/L (22-29); Chloride 99 mmol/L (98-107); Globulin 4.2 g/dL (1.3-4.6); Glomerular Filtration Rate 23.3 mL/min (90-130); Glucose 184 mg/dL (65-115); Osmolality Calculated 283 mOsm/kg (285-295); Potassium 5.7 mmol/L (3.5-5.1); Sodium 129 mmol/L (136-145); Total Bilirubin 1.8 mg/dL (0.15-1.2); Total Protein 6.7 g/dL (6.6-8.7)
[2022-06-15] MEDS: budesonide 0.5 mg/2 mL Neb INHALATION (08:35)
[2022-06-15] MEDS: insulin glargine 100 units/1 mL 10 UNIT SUBCUT (08:48)
[2022-06-15] MEDS: pantoprazole DR 40 mg Tablet PO (08:49)
[2022-06-15] MEDS: insulin lispro 100 unit/1 mL SUBCUT (08:49)
[2022-06-15] MEDS: tolterodine 2 mg Tablet 4 MG PO (08:49)
[2022-06-15] MEDS: ferrous gluconate 324 mg Tablet PO (08:49)
[2022-06-15] MEDS: docusate sodium 100 mg Capsule PO (08:50)
[2022-06-15] MEDS: duloxetine 60 mg Capsule PO (08:50)
[2022-06-15] MEDS: hyDRALAzine 10 mg Tablet PO (08:50)
[2022-06-15] MEDS: heparin 5,000 unit/mL INJ 1 mL 5000 UNIT SUBCUT (08:51)
[2022-06-15] MEDS: cefTRIAXone 1,000 MG in sodium chloride 0.9% (plus) 50 ML 50 MG IV (08:53)
[2022-06-15 11:39] LABS: Glucose Point of Care 143 mg/dL (70-110)
[2022-06-15] MEDS: insulin regular-human 10 UNIT in SYRINGE 1 EACH IVP (11:42)
[2022-06-15] MEDS: dextrose 50% syringe 50 mL IVP (11:47)
[2022-06-15] MEDS: calcium gluconate 0.9% NaCL 1 GM/50 ML PREMIX IV (11:49)
[2022-06-15] MEDS: FUROsemide 10 mg/mL SDV 2mL 20 MG IVP (12:14)
[2022-06-15 16:09] LABS: Anion Gap 16.9 (5-19); Blood Urea Nitrogen 40 mg/dL (8-23); Calcium 8.5 mg/dL (8.5-10.5); Carbon Dioxide 19 mmol/L (22-29); Chloride 97 mmol/L (98-107); Glomerular Filtration Rate 26.1 mL/min (90-130); Glucose 174 mg/dL (65-115); Osmolality Calculated 280 mOsm/kg (285-295); Potassium 4.9 mmol/L (3.5-5.1); Sodium 128 mmol/L (136-145)
--- NOTE | 2022-06-15 16:20 | P.DS_ITS ---
Discharge Providers Date of Admission: 06/12/22 16:52 Date of Discharge: June 15, 2022 Attending Provider at Admission: David Keane MD Attending Provider at Discharge: David Keane MD Consults: Telemetry nephrology Primary Care Provider: MATTHEW Norman Diagnoses at Discharge Discharge Diagnosis (1) Total bilirubin, elevated: Status: Acute (2) Acute kidney injury superimposed on chronic kidney disease: Status: Acute (3) Shortness of breath: Status: Acute (4) Asthma: Status: Acute (5) Leukocytosis: Status: Acute (6) Thrombocytopenia: Status: Acute (7) Hypothyroidism: Status: Acute (8) Hyponatremia: Status: Acute (9) Diabetes mellitus: Status: Chronic Qualifiers: Diabetes mellitus type: type 2 Diabetes mellitus terminal gauger insulin use: without jail use Diabetes mellitus complication status: without complication Qualified Code(s): E11.9 - Type 2 diabetes mellitus without complications (10) Hypertension: Status: Chronic Qualifiers: Hypertension type: primary hypertension Qualified Code(s): I10 - Essential (primary) hypertension (11) Anxiety and depression: Status: Chronic (12) Portal vein thrombosis: Status: Acute Reason for Visit Reason for Visit: SOB Hospital Course Hospital Course Lisa Rivera is a 71 year old female with past medical history of hypertension, type 2 diabetes mellitus, hyperlipidemia, fibromyalgia, CKD, COPD, restless leg syndrome was sent into the ER today by her PCP because of abnormal labs. As per the patient she has been having symptoms of shortness of breath and increased cough more than her usual for last 1 week.? Prior to that she has been having pain in the right side of her flank associated with darkish colored, cranberry colored urine as per the patient for last 2 weeks to 10 days.? As per the patient she always have some cough and difficulty in breathing secondary to her asthma for which she takes inhaler daily.? She does not use oxygen.? For the same complaint she went to her PCP around a week ago and was given oral steroids along with antibiotics.? She has been taking steroids since then but started taking antibiotic which seems to be Levaquin yesterday.? Today she got a call from her PCP because her liver numbers and kidney numbers were deranged so she was asked to come to the ER. Patient was sent to the hospital for further evaluation and management. There were multiple blood work abnormality on admission including elevated total bilirubin, acute kidney injury with a creatinine of more than 2.5, leukocytosis, thrombocytopenia along with diagnosis for hypothyroidism. There was no known etiology for patient's abnormal bilirubin and acute kidney injury. CT abdomen pelvis was done which was consistent with a chronic portal vein thrombosis and hepatosplenomegaly. Multiple etiologies were sought. Hemolytic anemia was ruled out by negative haptoglobin and LDH. Hepatitis panel was within normal limits. Infectious work-up was sent including CMV, EBV serology, tick panel which are still pending. Respiratory viral panel was within normal limits. Patient's UA on admission showed possible UTI along with microscopic hematuria. CT abdomen pelvis also showed a complex right renal left lower pole mass which was similar to the MRI few years ago. ESR and CRP were checked which were mildly elevated. Given concern for nephrotic syndrome nephrology was consulted. Blood work for autoimmune process including KELLY, ANCA have been sent out and are pending. Patient was started on IV hydration, steroids and IV ceftriaxone for possible UTI. Patient's bilirubin trended down. For acute kidney injury multiple medical reconciliation's were done. Her creatinine started trending down after initiation of steroids though that caused her to have minimal hyperkalemia. Patient has been eager to be discharged home. She has been discharged in hemodynamically stable condition multiple blood work has been sent out with advised to follow-up with her primary care provider within next 1 week to 10 days for repeat CMP and follow-up of the blood work. She is not to take Lasix, losartan, metformin for now. She is been started on hydralazine 25 mg 3 times a day along with Januvia 100 mg daily and levothyroxine 88 mcg daily. She is to repeat her thyroid profile within next 2 months. She is to continue checking her blood pressures and blood sugars at home and maintain blood pressure at diary and a blood sugar diary and follow-up with her primary care provider within next 10 days for further adjustment of antihypertensive and diabetic medications as needed. Physical Exam Narrative: General: No acute distress, AO x3, room air, anxious, mildly tachypneic HEENT: PERRLA, pupils bilaterally equal and reactive Chest: Bilateral bronchial breath sounds, occasional rhonchi over the lung field, good equal air entry CVS: S1-S2 regular, no murmurs, no tachycardia, no gallops, no rubs Abdomen: Soft, nontender, no organomegaly, bowel sounds present, morbidly obese, right flank pain present Neuro: No focal deficits, no facial deformity, AO x3, power 5/5 in all limbs Urinary Catheter Management: Baltazar: Cath Placed During This Visit: yes, but has since been removed by the nurse Reason for Continuing Indwelling Catheter: Decision to DC Catheter Date Urinary Catheter Removed: 06/14/22 Time Urinary Catheter Discontinued: 12:00 Discharge Data Studies Completed and Pending Completed Studies During Hospitalization Category Date Time Status CT abdomen pelvis wo con [id number] Stat Cat Scan 06/12/22 13:[address] chest wo con [id number] Routine Cat Scan 06/12/22 16:53 Completed XR chest 1V portable [id number] Stat Exams 06/12/22 10:00 Completed CV. echo complete* [id number] Routine Ultrasound 06/12/22 16:58 Completed US gall bladder [id number] Stat Ultrasound 06/12/22 12:09 Completed Pending at discharge Category Date Time Status KELLY Screen w/ Reflex Routine Lab 06/14/22 08:56 Received Anti-Neutrophil Cytoplasmic AB Routine Lab 06/14/22 08:56 Received BMP [Basic Metabolic Panel] Routine Lab 06/15/22 15:12 Results Blood Culture Stat Lab 06/12/22 18:34 Results CMV IGG&IGM Panel Routine Lab 06/12/22 22:53 Received EBV IGG & IGM Routine Lab 06/12/22 22:53 Received KAPPA/LAMBDA LIGHT FREE SERUM Routine Lab 06/14/22 08:56 Received Sputum Culture and Gram Stain Stat Lab 06/12/22 17:30 Results Tick Panel Routine Lab 06/12/22 22:53 Received Total Protein Electrophoresis Routine Lab 06/14/22 08:56 Received Urinalysis Routine Lab 06/14/22 10:57 Ordered Radiology Impressions Chest X-Ray 06/12/22 10:00 IMPRESSION: Poor inspiration. No sign of pneumonia or pulmonary edema. Gallbladder Ultrasound 06/12/22 12:09 IMPRESSION: 1. No common bile duct dilatation. 2. Status post cholecystectomy. 3. Mild hepatomegaly with changes of cirrhosis. Abdomen/Pelvis CT 06/12/22 13:06 IMPRESSION: 1. No urinary tract calculus or obstruction. 2. Right renal mass versus complicated cyst. 3. Chronic portal vein thrombosis with compensatory changes. Chest CT 06/12/22 16:53 IMPRESSION: 1. Dependent atelectasis. No acute pulmonary findings otherwise. 2. Coronary calcification. 3. Hepatosplenomegaly, partially visualized. Laboratory Results WBC 13.6 10^3/uL (4.0-10.0) H 06/15/22 03:17 RBC 3.47 10^6/uL (4.1-5.3) L 06/15/22 03:17 Hgb 10.1 g/dL (11.5-15.3) L 06/15/22 03:17 Hct 31.8 % (37.0-47.0) L 06/15/22 03:17 MCV 91.6 fl (81-99) 06/15/22 03:17 MCH 29.1 pg (28.0-34.0) 06/15/22 03:17 MCHC 31.8 g/dL (30.0-36.0) 06/15/22 03:17 RDW 14.8 % (12.1-15.1) 06/15/22 03:17 Plt Count 209 10^3/cmm (130-400) D 06/15/22 03:17 MPV 10.5 fL (7.4-10.4) H 06/15/22 03:17 Neut % (Auto) 86.2 % 06/15/22 03:17 Lymph % (Auto) 4.2 % 06/15/22 03:17 [place] % (Auto) 2.1 % 06/15/22 03:17 Eos % (Auto) 0.0 % 06/15/22 03:17 Baso % (Auto) 0.4 % 06/15/22 03:17 Reticulocyte % (Auto) 0.9 % (0.5-2.0) 06/12/22 11:02 Neut # (Auto) 11.75 10^3/uL (1.8-7.7) H 06/15/22 03:17 Lymph # (Auto) 0.6 10^3/uL (0.8-4.8) L 06/15/22 03:17 [place] # (Auto) 0.3 10^3/uL (0.2-0.9) 06/15/22 03:17 Eos # (Auto) 0.0 10^3/uL (0.0-0.8) 06/15/22 03:17 Baso # (Auto) 0.1 10^3/uL (0.0-0.1) 06/15/22 03:17 Nucleated RBC % (auto) 0 % 06/15/22 03:17 Nucleated RBCs # 0.0 /100WBC 06/15/22 03:17 ESR 46 mm/hr (0-15) H 06/13/22 03:03 Haptoglobin 330.0 mg/L (30-200) H 06/12/22 16:38 PT 16.30 SECONDS (12.1-14.9) H 06/12/22 12:50 INR 1.28 (0.8-1.2) H 06/12/22 12:50 APTT 24.6 SECONDS (23.9-36.7) 06/12/22 12:50 Sodium 129 mmol/L (136-145) L 06/15/22 03:17 Potassium 4.9 mmol/L (3.5-5.1) 06/15/22 15:12 Chloride 99 mmol/L (98-107) 06/15/22 03:17 Carbon Dioxide 20 mmol/L (22-29) L 06/15/22 03:17 Anion Gap 16.9 (5-19) 06/15/22 15:12 BUN 40 mg/dL (8-23) H 06/15/22 03:17 Creatinine 2.1 mg/dL (0.5-0.9) H 06/15/22 03:17 GFR Calculation 23.3 mL/min (90-130) L 06/15/22 03:17 Glucose 184 mg/dL (65-115) H 06/15/22 03:17 POC Glucose 143 mg/dL (70-110) H 06/15/22 11:24 Calculated Osmolality 283 mOsm/kg (285-295) L 06/15/22 03:17 Calcium 8.5 mg/dL (8.5-10.5) 06/15/22 15:12 Phosphorus 5.2 mg/dL (2.5-4.5) H 06/13/22 03:03 Magnesium 2.6 mg/dL (1.7-2.3) H 06/13/22 03:03 Iron 65 ug/dL (37-145) 06/12/22 12:50 TIBC 163 mcg/dl 06/12/22 12:50 % Saturation 39.8 % (20-50) 06/12/22 12:50 Unsat Iron Binding 98 ug/dL (112-347) L 06/12/22 12:50 Total Bilirubin 1.8 mg/dL (0.15-1.2) H 06/15/22 03:17 Direct Bilirubin 3.20 mg/dL (0.00-0.30) H 06/12/22 16:38 Indirect Bilirubin 1.10 06/12/22 16:38 GGT 78 U/L (5-36) H 06/12/22 16:38 AST 23 U/L (0-32) 06/15/22 03:17 ALT 20 U/L (0-33) 06/15/22 03:17 Alkaline Phosphatase 162 U/L (35-105) H 06/15/22 03:17 Lactate Dehydrogenase 205 U/L (135-214) 06/12/22 12:50 Creatine Kinase 15 U/L (26-192) L 06/14/22 02:25 C-Reactive Protein 146.0 mg/L (0.0-4.9) H 06/13/22 03:03 NT-Pro-B Natriuret Pep 4761 pg/mL (0-125) H 06/12/22 16:38 Total Protein 6.7 g/dL (6.6-8.7) 06/15/22 03:17 Albumin 2.5 g/dL (3.5-5.2) L 06/15/22 03:17 Globulin 4.2 g/dL (1.3-4.6) 06/15/22 03:17 Lipase 113 U/L (13-60) H 06/12/22 11:02 Vitamin B12 > 2000 pg/mL (232-1245) H 06/12/22 12:50 Folate 19.1 ng/mL (4.8-37.3) 06/12/22 16:38 Procalcitonin 0.87 ng/mL (0-0.5) H 06/12/22 12:50 Free T4 0.74 ng/dL (0.82-1.77) L 06/12/22 12:50 Free T3 1.9 PG/ML (2.0-4.4) L 06/12/22 12:50 Urine Color Yellow (Yellow) 06/12/22 12:02 Urine Appearance Clear (CLEAR) 06/12/22 12:02 Urine pH 5 (5-7) 06/12/22 12:02 Ur Specific [place] 1.010 (1.005-1.030) 06/12/22 12:02 Urine Protein Neg (Negative) 06/12/22 12:02 Urine Glucose (UA) Norm (Normal) 06/12/22 12:02 Urine Ketones Negative (Negative) 06/12/22 12:02 Urine Blood 3+ (Negative) H 06/12/22 12:02 Urine Nitrate Positive (Negative) H 06/12/22 12:02 Urine Bilirubin Neg (Negative) 06/12/22 12: Urine Urobilinogen Neg mg/dL (Negative) 06/12/22 12:02 Ur Leukocyte Esterase 2+ (Negative) H 06/12/22 12:02 Urine RBC 25-40 /hpf (0-2) H 06/12/22 12:02 Urine WBC 25-40 /hpf (0-5) H 06/12/22 12:02 Ur Eosinophil Smear 0 (0-0) 06/13/22 01:45 Ur Squamous Epith Cells 0-4 /hpf (0-5) H 06/12/22 12:02 Amorphous Sediment Not Reportable 06/12/22 12:02 Urine Bacteria 3+ /hpf (NONE) H 06/12/22 12:02 Urine Eosinophils No eosinophils seen 06/13/22 01:45 Ur Random Sodium 42 mmol/L 06/13/22 01:45 Ur Random Potassium 12 mmol/L 06/13/22 01:45 Ur Random Chloride 23 mmol/L 06/13/22 01:45 Urine Creatinine 41 mg/dL (28-217) 06/13/22 01:45 Nasal Influ A H1 2008 PCR Not detected (NOT DETECT) 06/13/22 04:30 Ethyl Alcohol < 10 mg/dL (0-10) 06/12/22 16:38 Complement C3 128 mg/dL (90-180) 06/14/22 08:56 Complement C4 26 mg/dL (10-40) 06/14/22 08:56 Adenovirus (PCR) Not detected (NOT DETECT) 06/13/22 04:30 C. pneumoniae DNA (PCR) Not detected (NOT DETECT) 06/13/22 04:30 Coronavirus 229E (PCR) Not detected (NOT DETECT) 06/13/22 04:30 Hepatitis A IgM Ab Non-reactive (Nonreactive) 06/12/22 16:38 Hep Bs Antigen Non-reactive (Nonreactive) 06/12/22 16:38 Hep Bs Antibody 3.5 (11.5-1000) L 06/12/22 16:38 Hep B Core Total Ab Non-reactive (Nonreactive) 06/12/22 16:38 Hepatitis C Antibody Non-reactive (Nonreactive) 06/12/22 16:38 Monoscreen Negative (Negative) 06/12/22 16:38 HIV 1&2 Ab & HIV 1 Ag Non-reactive (Non-Reactiv) 06/14/22 08:56 HIV 1&2 Antibody Non-reactive (Non-Reactiv) 06/14/22 08:56 Human Metapneumovir PCR Not detected (NOT DETECT) 06/13/22 04:30 Influenza A (H1) PCR Not detected (NOT DETECT) 06/13/22 04:30 Influenza A (H3) PCR Not detected (NOT DETECT) 06/13/22 04:30 Influenza Type A (PCR) Not detected (NOT DETECT) 06/13/22 04:30 Influenza Type B (PCR) Not detected (NOT DETECT) 06/13/22 04:30 M. pneumoniae (PCR) Not detected (NOT DETECT) 06/13/22 04:30 Parainfluenza 1 (PCR) Not detected (NOT DETECT) 06/13/22 04:30 Parainfluenza 2 (PCR) Not detected (NOT DETECT) 06/13/22 04:30 Parainfluenza 3 (PCR) Not detected (NOT DETECT) 06/13/22 04:30 Parainfluenza 4 (PCR) Not detected (NOT DETECT) 06/13/22 04:30 RSV Type A (PCR) Not detected (NOT DETECT) 06/13/22 04:30 RSV Type B (PCR) Not detected (NOT DETECT) 06/13/22 04:30 Entero/Rhino (PCR) Not detected (NOT DETECT) 06/13/22 04:30 SARS-CoV-2 (PCR) Not detected (NOT DETECT) 06/13/22 04:30 Vitals Last Vital Signs Temp 98.3 F 06/15/22 15:47 Pulse 92 06/15/22 15:47 Resp 16 06/15/22 15:47 BP 149/73 06/15/22 15:47 Pulse Ox 95 06/15/22 15:47 O2 Del Method 06/15/22 15:47 FiO2 21 06/14/22 08:26 Discharge Plan Discharge Patient Disposition: Home Condition: Stable Prescriptions: New levothyroxine 88 mcg Tablet 88 mcg PO QAM Qty: 30 0RF hydralazine 25 mg tablet 25 mg PO TID Qty: 90 0RF prednisone 10 mg tablet See Taper PO DAILY Qty: 42 0RF Taper: predniSONE 60-10 60 mg Daily for 2 Days and 0 Hour 50 mg Daily for 2 Days and 0 Hour 40 mg Daily for 2 Days and 0 Hour 30 mg Daily for 2 Days and 0 Hour 20 mg Daily for 2 Days and 0 Hour 10 mg Daily for 2 Days and 0 Hour ferrous gluconate 324 mg (37.5 mg iron) Tablet 324 mg PO BIDWM Qty: 60 0RF Januvia 100 mg tablet 100 mg PO DAILY Qty: 30 0RF Continued cholecalciferol (vitamin D3) 25 mcg (1,000 unit) capsule 25 mcg PO QAM garlic 1,000 mg capsule 1,000 mg PO QAM turmeric root extract 500 mg capsule 500 mg PO QAM cranberry 500 mg capsule 500 mg PO QAM Rx Instructions: administer with meals multivitamin with minerals [Hair,Skin and Nails] Tablet 1 tab PO QAM balance of nature 3 tab PO QAM amlodipine 10 mg tablet 10 mg PO QAM Qty: 90 4RF atorvastatin 20 mg tablet 20 mg PO BEDTIME Qty: 90 4RF albuterol sulfate [ProAir HFA] 90 mcg/actuation HFA aerosol inhaler 2 puff INHALATION Q6H PRN (Reason: shortness of breath or wheezing) 90 Days Qty: 3 1RF tolterodine 4 mg capsule,extended release 24hr 8 mg PO QAM Qty: 90 0RF ropinirole 0.25 mg tablet 0.25 mg PO BEDTIME Qty: 90 0RF primidone 50 mg tablet 100 mg PO QAM Qty: 90 0RF nitroglycerin 0.4 mg tablet, sublingual 0.4 mg sublingual Q5M PRN (Reason: chest pain) Qty: 30 2RF Rx Instructions: do not exceed 3 doses per episode mirtazapine 15 mg tablet 15 mg PO BEDTIME Qty: 30 0RF duloxetine 60 mg capsule, delayed rel sprinkle 120 mg PO QAM Qty: 90 0RF multivitamin Tablet 1 tab PO DAILY Milk Thistle [place] Tabs 1 tab PO DAILY [place] 3 Fish Oil 684-1,200 mg Capsule,Delayed Release(Dr/Ec) 1 cap PO QAM pantoprazole 40 mg tablet,delayed release (DR/EC) 40 mg PO QAM Changed furosemide 20 mg tablet 20 mg PO DAILY PRN (Reason: Swelling) Qty: 180 0RF Discontinued metformin 500 mg tablet extended release 24 hr 500 mg PO BID 90 Days Qty: 180 0RF levofloxacin 750 mg tablet 750 mg PO DAILY Qty: 7 0RF Rx Instructions: RX FILLED 06/10/22 7D/S prednisone 20 mg tablet 20 mg PO BID Qty: 10 0RF Rx Instructions: FOR 5 DAYS (RX FILLED 06/10/22) losartan 50 mg tablet 50 mg PO QAM Klor-Con M10 10 mEq tablet,ER particles/crystals 10 meq PO QAM No Action (DME) lancets [Accu-Chek Multiclix Lancet] Misc See Rx Instructions .ROUTE .MEDSUPPLY Qty: 100 3RF Rx Instructions: once daily (DME) blood-glucose meter [Accu-Chek Julee Plus Meter] Misc See Rx Instructions .ROUTE .MEDSUPPLY Qty: 1 0RF Rx Instructions: once daily (DME) cpap supply See Rx Instructions .Route .MEDSUPPLY Qty: 1 5RF Rx Instructions: As directed cpap supplies Discharge Orders: Discharge Order (Routine); Ordered 06/15/22 Ordered By: David Keane Referrals: Hanane Borden FNP-C [Primary Care Provider] - Discharge Diet: Regular and Diabetic Discharge Activity: Resume usual activity and Increase activity as tolerated Patient Instructions: Opioid Safety Activity Restrictions/Additional Instructions: Multiple medication changes have been done. Do not take losartan, metformin, Lasix for now. Lasix has been changed to as needed 20 mg 1 time a day for lower limb swelling. Do not take potassium supplements anymore. For now take hydralazine 25 mg 3 times a day for blood pressure. Take steroids as directed. Take prednisone 60 mg for next 2 days followed by 50 mg for 2 days followed by 40 mg for 2 days followed by 30 mg for 2 days followed by 20 mg for 2 days and then 2 days of 10 mg and stop. Please follow-up with a primary care provider within next 1 week to 10 days for repeat CMP. Please monitor blood pressures at home and maintain a blood pressure diary and follow-up with a primary care provider for further adjustment of antihypertensives as needed. Continue taking levothyroxine as directed daily. We should recheck your thyroid profile within next 2 months. Please make sure you drink at least 2 to 2-1/2 L of fluid daily. Discharge Attestations Time Spent in Discharge Care*: greater than 30 min Specific Discharge Activities: educating patient, discussing with pcp/other providers, discussing with disease case manager/social workers/dc planners, documenting/other paperwork and evaluating patient/reviewing data Status at Discharge: Cognitive status at discharge: cognitively intact , Behavioral status at discharge: cooperative , Functional status at discharge: independent ambulation , Overall status at discharge: patient is back to baseline Quality Metrics Clinical Quality Measures [ No reported AMI, CVA or VTE this stay] Coding Level of Care Code Acute Chg DC note Diagnoses Total bilirubin, elevated R17 Acute kidney injury superimposed on chronic kidney disease N17.9; N18.9 Shortness of breath R06.02 Asthma J45.909 Leukocytosis D72.829 Thrombocytopenia D69.6 Hypothyroidism E03.9 Hyponatremia E87.1 Diabetes mellitus E11.9 Diabetes mellitus type: type 2 Diabetes mellitus terminal gauger insulin use: without jail use Diabetes mellitus complication status: without complication Hypertension I10 Hypertension type: primary hypertension Anxiety and depression F41.9; F32.9 Portal vein thrombosis I81
[2022-06-15 16:56] LABS: Glucose Point of Care 211 mg/dL (70-110)
[2022-06-16 11:42] LABS: EBV IGM TEST <36.00 U/mL
[2022-06-16 12:44] LABS: Lyme AB Screen <0.90 index
[2022-06-16 14:37] LABS: PROTEIN, TOTAL 5.9 g/dL (6.1-8.1)
[2022-06-16 15:12] LABS: Cytomegalovirus Antibody (IGM) <30.00 AU/mL
[2022-06-17 15:55] LABS: ABNORMAL PROTEIN BAND 1 0.4 g/dL (NONE DETECTED); ALBUMIN 2.3 g/dL (3.8-4.8); ALPHA 1 GLOBULIN 0.7 g/dL (0.2-0.3); ALPHA 2 GLOBULIN 1.1 g/dL (0.5-0.9); BETA 1 GLOBULIN 0.3 g/dL (0.4-0.6); BETA 2 GLOBULIN 0.4 g/dL (0.2-0.5); GAMMA GLOBULIN 1.3 g/dL (0.8-1.7)
[2022-06-18 11:23] LABS: Anti-Nuclear Antibody Pattern Nuclear, Homogeneous; Anti-Nuclear Antibody Screen POSITIVE (NEGATIVE); Anti-Nuclear Antibody Titer 1:40 titer
[2022-06-19 15:58] LABS: RMSF IGG NOT DETECTED; RMSF IGM NOT DETECTED
[2022-06-19 21:48] LABS: E. Chaffeensis AB IGG <1:64; E. Chaffeensis AB IGM <1:20
[2022-06-20 10:28] LABS: KAPPA LIGHT CHAIN, FREE, SERUM 122.6
[2022-06-20 10:29] LABS: KAPPA/LAMBDA LIGHT CHAINS FREE 0.99; LAMBDA LIGHT CHAIN, FREE, SERU 123.7
[2022-06-20 16:08] LABS: ANCA Screen NEGATIVE (NEGATIVE)
== END 2022-06-15 17:30 | disposition home or self-care (01) | DRG 682 ==
LOC: ER 13:05 → MEDSURG 23:54
PROVIDERS: Family Medicine; Internal Medicine; Admitting Provider Student in an Organized Health Care Education/Training Program; Emergency Provider Emergency Medicine; PCP Nurse Practitioner Family; Visit Provider Student in an Organized Health Care Education/Training Program
DX: N17.9 Acute kidney failure, unspecified (principal); I81 Portal vein thrombosis; N39.0 Urinary tract infection, site not specified; E87.1 Hypo-osmolality and hyponatremia; B96.20 Unspecified Escherichia coli [E. coli] as the cause of diseases classified elsewhere; E78.5 Hyperlipidemia, unspecified; M79.7 Fibromyalgia; J44.9 Chronic obstructive pulmonary disease, unspecified; G25.81 Restless legs syndrome; F41.8 Other specified anxiety disorders; M19.90 Unspecified osteoarthritis, unspecified site; Z87.891 Personal history of nicotine dependence; E86.0 Dehydration; D69.6 Thrombocytopenia, unspecified; Z79.51 Long term (current) use of inhaled steroids; N28.89 Other specified disorders of kidney and ureter; R31.29 Other microscopic hematuria; R16.2 Hepatomegaly with splenomegaly, not elsewhere classified; K76.9 Liver disease, unspecified; E03.9 Hypothyroidism, unspecified; E11.22 Type 2 diabetes mellitus with diabetic chronic kidney disease; I12.9 Hypertensive chronic kidney disease with stage 1 through stage 4 chronic kidney disease, or unspecified chronic kidney disease; N18.9 Chronic kidney disease, unspecified
CPT/HCPCS: 36415; 36416; 51702; 71045; 71250; 74176; 76705; 80048; 80053; 80307; 81001; 82247; 82248; 82436; 82550; 82570; 82607; 82746; 82962; 82977; 83010; 83540; 83550; 83615; 83690; 83735; 83880; 83883; 84100; 84133; 84145; 84155; 84165; 84300; 84439; 84481; 85025; 85045; 85610; 85651; 85730; 85999; 86036; 86038; 86140; 86160; 86308; 86403; 86618; 86664; 86665; 86666; 86705; 86706; 86709; 86757; 86803; 87040; 87070; 87077; 87086; 87186; 87205; 87340; 87449; 87486; 87581; 87633; 87635; 87641; 87806; 93005; 93306; 94640; 94660; 94664; 96365; 96372; 99285; J0610; J0696; J1644; J1815; J1940; J2543; J2920; J7030; J7626; Q3014

== ENCOUNTER → 2022-06-19 15:07 | Outpatient (BNVA) | payer MEDICARE, OTHER, SELFPAY | PROVIDERS: PCP Nurse Practitioner Family; Visit Provider Nurse Practitioner | DX: N17.9 Acute kidney failure, unspecified (principal); E55.9 Vitamin D deficiency, unspecified | CPT/HCPCS: 80053; 82306; 83735; 84100; 85025 ==

== ENCOUNTER → 2022-06-23 14:48 | Outpatient (BNVA) | payer MEDICARE, OTHER, SELFPAY | PROVIDERS: PCP Nurse Practitioner Family; Visit Provider Nurse Practitioner Family | DX: E87.1 Hypo-osmolality and hyponatremia (principal); N17.9 Acute kidney failure, unspecified; R76.8 Other specified abnormal immunological findings in serum; N28.89 Other specified disorders of kidney and ureter; F41.9 Anxiety disorder, unspecified; F32.A Depression, unspecified; E11.65 Type 2 diabetes mellitus with hyperglycemia | CPT/HCPCS: 80053; 85025 ==

== ENCOUNTER → 2022-07-03 14:32 | Outpatient (BNVA) | payer MEDICARE, OTHER, SELFPAY | PROVIDERS: PCP Nurse Practitioner Family; Visit Provider Nurse Practitioner Family | DX: N17.9 Acute kidney failure, unspecified (principal) | CPT/HCPCS: 80069 ==

== ENCOUNTER → 2022-07-04 11:06 | Outpatient (BNVA) | payer MEDICARE, OTHER, SELFPAY | PROVIDERS: PCP Nurse Practitioner Family; Visit Provider Internal Medicine Nephrology | DX: N17.9 Acute kidney failure, unspecified (principal); Z79.899 Other long term (current) drug therapy | CPT/HCPCS: 81003; 82043; 87086 ==

== ENCOUNTER → 2022-08-22 07:45 | Outpatient (BNVA) | payer MEDICARE, OTHER, SELFPAY | PROVIDERS: PCP Nurse Practitioner Family; Visit Provider Urology | DX: N28.89 Other specified disorders of kidney and ureter (principal) | CPT/HCPCS: 81003; 99203 ==

== ENCOUNTER 2022-09-01 17:38 | Emergency (ER) | payer MEDICARE, OTHER, SELFPAY ==
[2022-09-01 17:57] VITALS: BP 159/77; PULSE 89; RESP 16; TEMP 36.8; O2SAT 97
--- NOTE | 2022-09-01 18:15 | XRR_ITS ---
PROCEDURE INFORMATION: Exam: XR Left Knee Exam date and time: 09/01/2022 6:21 PM Age: 72 years old Clinical indication: Pain; Knee; Left; Additional info: Fall injury TECHNIQUE: Imaging protocol: Radiologic exam of the Left knee. Views: 3 views. COMPARISON: No relevant prior studies available. FINDINGS: Tubes, catheters and devices: There is no evidence of loosening of the orthopedic hardware. Bones/joints: Status post total knee arthroplasty that appears in near anatomic alignment. No acute fracture is identified. There is fullness of the suprapatellar space that may be secondary to a suprapatellar effusion versus postoperative changes. Soft tissues: No radiopaque foreign bodies. XR/XR knee LT 3V* [id number] IMPRESSION: 1. No acute fracture or dislocation. 2. Status post total left knee arthroplasty. 3. Fullness of the suprapatellar space that may be secondary to a moderate effusion or postoperative changes. There are no prior images for comparison.
--- NOTE | 2022-09-01 18:34 | ED_ITS ---
HPI - Extremity Problem General: Chief complaint: Extremity Injury, Lower Stated complaint: left knee pain Time Seen by Provider: 09/01/22 18:34 History of Present Illness: 72-year-old female comes in today for complaints of injury to the left knee. Patient has a history of bilateral knee replacements. Patient reports about 2 weeks ago she twisted her knee and since then she has fallen 2 other times. Last time patient had come down on the anterior knee and has increased pain anteriorly. Caregiver reports that they had to assist her getting up off the floor. When questioned about whether or not patient had a walker at home she denies any walker. Review of Systems General: Reports: 10 or more systems reviewed and unremarkable except in HPI and below Musc: Reports: extremity pain PFSH ED PFSH: Medical History Anxiety and depression Asthma Chronic kidney disease Diabetes mellitus Diabetes mellitus with hyperglycemia Environmental allergies Essential tremor Fibromyalgia Hyperlipidemia Hypertension Insomnia Osteoarthritis Overactive bladder Portal vein thrombosis Renal mass, right Restless leg Surgical History H/O section H/O esophagogastroduodenoscopy (08/12/21) S/P bilateral cataract extraction S/P carpal tunnel release S/P cholecystectomy S/P hysterectomy S/P knee replacement S/P nasal surgery Status post colonoscopy (08/12/21) Family History Brother Myocardial infarct Hypertension Father Myocardial infarct Hypertension Mother CHF (congestive heart failure) Hypertension Liver disease Cancer Social History Smoking and tobacco status: former smoker Second hand smoke exposure: No Smoking risk assessment/counseling performed?: No Alcohol intake: never Desire information about alcohol rehabilitation?: No Counseling given: No Desire information about substance/drug rehabilitation?: No Counseling given: No Adopted: No Caregiver/support person: No Lives independently: Yes Household members: spouse Housing: House Marital status: Number of children: 3 service: No Current occupational status: retired Current occupational exposures/hazards: No Pets and animals: No History of recent travel: No Current gender identity: Female Physical Exam Const: COMMON NORMALS: alert HENMT: COMMON NORMALS: normocephalic HEAD & SCALP: normocephalic Neck/C-Spine: CERVICAL SPINE: Yes cervical ROM normal Resp: COMMON NORMALS: normal respiratory effort Extremity: LEFT LOWER EXTREMITY: Yes knee joint (Anterior tenderness with ecchymosis) Left knee: Yes inspection, Yes palpation and Yes ROM Neuro: SENSORIUM/ORIENTATION: Yes alert Course Vital Signs: Vital signs: Vital Signs Temperature 98.3 F 09/01/22 17:57 Pulse Rate 89 09/01/22 17:57 Respiratory Rate 16 09/01/22 17:57 Blood Pressure 159/77 09/01/22 17:57 Pulse Oximetry 97 09/01/22 17:57 Oxygen Delivery Me thod 09/01/22 17:57 MDM - Extremity (Nontraumatic) Medical Decision Making Patient comes in today for evaluation of injury to the left knee. On exam there is some tenderness anteriorly with some bruising. Normal range of motion. Increased pain with weightbearing. Differential diagnosis includes contusion, fracture, sprain. X-ray noted no acute abnormality. Reviewed exam with patient with recommendations for treatment and follow-up. Patient was written for hydrocodone for severe pain. Patient was recommended to take acetaminophen for further pain relief. Patient was also written for a walker to help her with ambulation at home. Patient reports understanding of care plan need for follow- up or return. Discharge Plan Discharge Patient Disposition: Home Clinical Impression: Contusion of knee, left Qualifiers: Encounter type: initial encounter Qualified Code(s): S80.02XA - Contusion of left knee, initial encounter Knee sprain Qualifiers: Encounter type: initial encounter Involved ligament of knee: unspecified ligament Laterality: left Qualified Code(s): S83.92XA - Sprain of unspecified site of left knee, initial encounter Condition: Stable Prescriptions: New hydrocodone-acetaminophen 5-325 mg tablet 1 tab PO TID PRN (Reason: pain (scale score 7-10)) Qty: 7 0RF No Action cholecalciferol (vitamin D3) 25 mcg (1,000 unit) capsule 25 mcg PO QAM garlic 1,000 mg capsule 1,000 mg PO QAM turmeric root extract 500 mg capsule 500 mg PO QAM cranberry 500 mg capsule 500 mg PO QAM Rx Instructions: administer with meals multivitamin with minerals [Hair,Skin and Nails] Tablet 1 tab PO QAM (DME) lancets [Accu-Chek Multiclix Lancet] Misc See Rx Instructions .ROUTE .MEDSUPPLY Qty: 100 3RF Rx Instructions: once daily (DME) blood-glucose meter [Accu-Chek Julee Plus Meter] Misc See Rx Instructions .ROUTE .MEDSUPPLY Qty: 1 0RF Rx Instructions: once daily balance of nature 3 tab PO QAM amlodipine 10 mg tablet 10 mg PO QAM Qty: 90 4RF atorvastatin 20 mg tablet 20 mg PO BEDTIME Qty: 90 4RF albuterol sulfate [ProAir HFA] 90 mcg/actuation HFA aerosol inhaler 2 puff INHALATION Q6H PRN (Reason: shortness of breath or wheezing) 90 Days Qty: 3 1RF sodium chloride 1 gram tablet 1,000 mg PO DAILY Qty: 30 0RF duloxetine 60 mg capsule,delayed release(DR/EC) 60 mg PO BID Qty: 180 1RF nitroglycerin 0.4 mg tablet, sublingual 0.4 mg sublingual Q5M PRN (Reason: chest pain) Qty: 30 2RF Rx Instructions: do not exceed 3 doses per episode (DME) cpap supply See Rx Instructions .Route .MEDSUPPLY Qty: 1 5RF Rx Instructions: As directed cpap supplies tolterodine 4 mg capsule,extended release 24hr 8 mg PO QAM Qty: 180 1RF Januvia 100 mg tablet 100 mg PO DAILY Qty: 90 1RF ropinirole 0.25 mg tablet 0.25 mg PO BEDTIME Qty: 90 1RF pantoprazole 40 mg tablet,delayed release (DR/EC) 40 mg PO QAM Qty: 90 1RF mirtazapine 15 mg tablet 15 mg PO BEDTIME Qty: 90 1RF levothyroxine 88 mcg tablet 88 mcg PO QAM Qty: 90 1RF hydralazine 25 mg tablet 25 mg PO TID Qty: 270 1RF furosemide 20 mg tablet 20 mg PO DAILY PRN (Reason: Swelling) Qty: 90 1RF ferrous gluconate 324 mg (37.5 mg iron) tablet 324 mg PO BIDWM Qty: 180 1RF primidone 50 mg tablet 100 mg PO QAM Qty: 90 1RF multivitamin Tablet 1 tab PO DAILY Milk Thistle [place] Tabs 1 tab PO DAILY omega-3 fatty acids-fish oil 014-1,200 mg Capsule,Delayed Release(Dr/Ec) 1 cap PO QAM Discharge Orders: Discharge ED (Routine); Ordered 09/01/22 Ordered By: George Alejo Other Ambulatory Orders: DME: Walker (Order) Location: None Selected Ordered By: George Alejo Referrals: Hanane Borden FNP-C [Primary Care Provider] - Patient Instructions: Opioid Safety, Pain Management Activity Restrictions/Additional Instructions: Use acetaminophen to control pain. Use hydrocodone for severe pain. Use ice or heat for further pain relief. Use a walker to help with ambulation. Follow-up with primary care for further instructions. Return to ED for new concerns. Coding Level of Care Code ED Tare Weigher for Deonna Bell
[2022-09-01] MEDS: HYDROcodone-acetaminophen 5-325 mg Tablet 1 TAB PO (18:55)
== END 2022-09-01 19:33 | disposition home or self-care (01) ==
PROVIDERS: Emergency Provider Nurse Practitioner Family; PCP Nurse Practitioner Family
DX: S80.02XA Contusion of left knee, initial encounter (principal); S83.92XA Sprain of unspecified site of left knee, initial encounter; Z87.891 Personal history of nicotine dependence; I12.9 Hypertensive chronic kidney disease with stage 1 through stage 4 chronic kidney disease, or unspecified chronic kidney disease; E11.22 Type 2 diabetes mellitus with diabetic chronic kidney disease; N18.9 Chronic kidney disease, unspecified; E78.5 Hyperlipidemia, unspecified; Z96.653 Presence of artificial knee joint, bilateral; W19.XXXA Unspecified fall, initial encounter
CPT/HCPCS: 73562; 99283

== ENCOUNTER → 2022-09-10 11:06 | Outpatient (BNVA) | payer MEDICARE, OTHER, SELFPAY | PROVIDERS: PCP Nurse Practitioner Family; Visit Provider Internal Medicine | DX: L40.9 Psoriasis, unspecified (principal); S89.90XA Unspecified injury of unspecified lower leg, initial encounter; M25.462 Effusion, left knee; M25.562 Pain in left knee; M25.50 Pain in unspecified joint; S83.92XA Sprain of unspecified site of left knee, initial encounter; S83.91XA Sprain of unspecified site of right knee, initial encounter; X58.XXXA Exposure to other specified factors, initial encounter; M48.061 Spinal stenosis, lumbar region without neurogenic claudication; M41.86 Other forms of scoliosis, lumbar region; M19.042 Primary osteoarthritis, left hand; M19.041 Primary osteoarthritis, right hand; M21.611 Bunion of right foot; M21.612 Bunion of left foot; M25.78 Osteophyte, vertebrae; R76.8 Other specified abnormal immunological findings in serum; Z96.652 Presence of left artificial knee joint; Z11.59 Encounter for screening for other viral diseases; Z11.1 Encounter for screening for respiratory tuberculosis | CPT/HCPCS: 36415; 72100; 72202; 73120; 73620; 80053; 82550; 82607; 82784; 83516; 83735; 84100; 84550; 85025; 85651; 86140; 86160; 86162; 86200; 86235; 86255; 86376; 86431; 86480; 86704; 86803; 87340; 99203 ==

== ENCOUNTER 2022-09-24 13:10 | Outpatient (CLI) | payer MEDICARE, OTHER, SELFPAY ==
--- NOTE | 2022-09-24 13:45 | MR_ITS ---
WS: [id number] MRI RIGHT SHOULDER NONCONTRAST TECHNIQUE: Sagittal T2, coronal T1, T2 and proton density imaging. Axial gradient PDE imaging. CLINICAL INFORMATION: S49.91XA - Unspecified injury of right shoulder and upper... COMPARISON: None. FINDINGS: Moderate degenerative arthritis AC joint with a small amount of fluid and edema. Synovial thickening. Moderate downsloping of the acromion with impingement on the distal supraspinatus with slight subacr omial spurring. Small subdeltoid effusion. Tiny tear at the supraspinatus insertion distally. No tend on retraction. Tendinopathy in the distal supraspinatus. Additional tiny undersurface tear and partia l intrasubstance tear distal supraspinatus. Normal infraspinatus. Normal teres minor. Subscapularis appears intact. Biceps tendon is absent from the bicipital groove. This is likely due to chronic tear. Intra-articular biceps tendon is not visual ized likely chronically torn. Degenerative fraying glenoid labrum. Subchondral cystic change involvin g the greater tuberosity. Advanced degenerative arthritis glenohumeral joint. MR/MR shoulder RT wo con* [id number] IMPRESSION: 1. Moderate degenerative arthritis AC joint with downsloping of the acromium w ith impingement on the distal supraspinatus. Small subdeltoid effusion. 2. Small supraspinatus insertional tear. Additional tiny undersurface tear and partial intrasubstance tear distal supraspinatus. Tendinopathy. No tendon retr action. 3. Rotator cuff is otherwise intact. 4. Biceps tendon is absent from the bicipital groove. There may be a tiny remn ant within the bicipital groove. This is likely due to chronic tear. 5. Biceps labral anchor not well visualized. Intra-articular biceps tendon is not visualized. 6. Moderate to advanced degenerative narrowing of the glenohumeral joint.
--- NOTE | 2022-09-24 14:30 | MR_ITS ---
WS: [id number] MRI LEFT KNEE NONCONTRAST TECHNIQUE: Axial PD, coronal PD fat sat, coronal PD, sagittal PD, and sagittal PD fat-sat images obta ined. CLINICAL INFORMATION: Z96.652 - Presence of left artificial knee joint COMPARISON: None. FINDINGS: LEFT TKA with susceptibility artifact limits evaluation. Prior LEFT TKA. Palpable marker overlying the LEFT anterolateral knee. Normal underlying soft tissues in this area. Normal subcutaneous fat. No evidence of cystic or solid lesion in the area of palpable concern. Normal subcutaneous soft tissues. Large complex suprapatellar joint effusion with proteinaceous or he morrhagic debris. Evidence of prior patellar resurfacing. MR/MR knee LT wo con* [id number] IMPRESSION: 1. No evidence of cystic or solid mass or abnormal lesion in the area of palpa ble concern. 2. Large complex suprapatellar effusion with T1 hyperintensity likely due to p roteinaceous or hemorrhagic debris. 3. Prior LEFT TKA with susceptibility artifact Outbridge grading: NA
== END 2022-09-24 13:11 | disposition home or self-care (01) ==
LOC: RAD 13:14
PROVIDERS: PCP Nurse Practitioner Family; Visit Provider Nurse Practitioner Family
DX: Z96.652 Presence of left artificial knee joint (principal); G89.29 Other chronic pain; M25.511 Pain in right shoulder; M25.462 Effusion, left knee; M25.562 Pain in left knee; S89.90XA Unspecified injury of unspecified lower leg, initial encounter; S49.91XA Unspecified injury of right shoulder and upper arm, initial encounter; X58.XXXA Exposure to other specified factors, initial encounter
CPT/HCPCS: 73221; 73721

== ENCOUNTER → 2022-09-30 08:46 | Outpatient (BNVA) | payer MEDICARE, OTHER, SELFPAY | PROVIDERS: PCP Nurse Practitioner Family; Referring Provider Nurse Practitioner Family; Visit Provider Orthopaedic Surgery | DX: Z96.652 Presence of left artificial knee joint (principal); S80.02XA Contusion of left knee, initial encounter; W19.XXXA Unspecified fall, initial encounter | CPT/HCPCS: 99203 ==

== ENCOUNTER → 2022-10-14 13:57 | Outpatient (BNVA) | payer MEDICARE, OTHER, SELFPAY | PROVIDERS: PCP Nurse Practitioner Family; Visit Provider Internal Medicine Cardiovascular Disease | DX: I12.9 Hypertensive chronic kidney disease with stage 1 through stage 4 chronic kidney disease, or unspecified chronic kidney disease (principal); E11.22 Type 2 diabetes mellitus with diabetic chronic kidney disease; E11.65 Type 2 diabetes mellitus with hyperglycemia; N18.9 Chronic kidney disease, unspecified; Z87.891 Personal history of nicotine dependence; Z79.84 Long term (current) use of oral hypoglycemic drugs; I35.1 Nonrheumatic aortic (valve) insufficiency; E78.5 Hyperlipidemia, unspecified; J44.9 Chronic obstructive pulmonary disease, unspecified | CPT/HCPCS: 99214 ==

== ENCOUNTER → 2022-10-15 13:59 | Outpatient (BNVA) | payer MEDICARE, OTHER, SELFPAY | PROVIDERS: PCP Nurse Practitioner Family; Visit Provider Orthopaedic Surgery | DX: M75.111 Incomplete rotator cuff tear or rupture of right shoulder, not specified as traumatic (principal) | CPT/HCPCS: 99203 ==

== ENCOUNTER → 2022-10-22 09:01 | Outpatient (BNVA) | payer MEDICARE, OTHER, SELFPAY | PROVIDERS: PCP Nurse Practitioner Family; Visit Provider Internal Medicine | DX: M25.569 Pain in unspecified knee (principal); R76.8 Other specified abnormal immunological findings in serum; M25.50 Pain in unspecified joint; K90.0 Celiac disease; K86.81 Exocrine pancreatic insufficiency | CPT/HCPCS: 99214 ==

== ENCOUNTER → 2022-10-29 11:03 | Outpatient (BNVA) | payer MEDICARE, OTHER, SELFPAY | PROVIDERS: PCP Nurse Practitioner Family; Visit Provider Nurse Practitioner Family | DX: M25.562 Pain in left knee (principal); M79.81 Nontraumatic hematoma of soft tissue | CPT/HCPCS: 99214 ==

== ENCOUNTER → 2022-11-06 10:05 | Outpatient (BNVA) | payer MEDICARE, OTHER, SELFPAY | PROVIDERS: PCP Nurse Practitioner Family; Referring Provider Internal Medicine; Visit Provider Anesthesiology Pain Medicine | DX: M51.16 Intervertebral disc disorders with radiculopathy, lumbar region (principal); M47.26 Other spondylosis with radiculopathy, lumbar region; M47.22 Other spondylosis with radiculopathy, cervical region; M41.86 Other forms of scoliosis, lumbar region; I65.22 Occlusion and stenosis of left carotid artery; Z79.891 Long term (current) use of opiate analgesic; Z91.81 History of falling; M54.16 Radiculopathy, lumbar region; M54.12 Radiculopathy, cervical region; M47.816 Spondylosis without myelopathy or radiculopathy, lumbar region | CPT/HCPCS: 72040; 99204 ==

== ENCOUNTER 2022-11-13 11:47 | Day surgery (SDC) | payer MEDICARE, OTHER, SELFPAY ==
[2022-11-12 13:07] VITALS: BMI 34.3
[2022-11-13] VITALS (10 sets, daily range): BP systolic 139–171; BP diastolic 66–94; PULSE 83–103; RESP 13–25; TEMP 36.4–37; O2SAT 94–100
--- NOTE | 2022-11-13 12:21 | ANES.PREANE2 ---
Pre-Anesthetic Assessment Height/Weight: Height 1.5 m Weight 77.111 kg O2 Del Method 11/13/22 12:16 Preop Diagnosis: Hematoma left knee Operation Date: 11/13/22 13:45 Proposed Procedures p Left knee hematoma evacuation: 41069,M25.569(Left) - Laurent Holm MD Familial anesthetic complications: None Was Beta Alex taken within 24 hours: N/A Was Clonidine taken within 24 hours: N/A Last intake: > 8hrs Social No alcohol and No tobacco Exam alert, oriented x 3, clear to auscultation bilaterally and regular rate & rhythm Airway Mallampati: Class III Dentition: other (no teeth) Pulmonary Asthma CV/HEM Hypertension 2020 Myocardial Perfusion Scan ?IMPRESSIONS ?1. Myocardial perfusion imaging is normal. ?2. Overall left ventricular systolic function is normal without regional wall ?motion abnormalities. ?3. The left ventricular ejection fraction is normal with a value of 76%. ?4.? No significant EKG changes with Lexiscan infusion.? ?5.? No prior similar studies to compare. 2020 stress test CONCLUSION: 1. Normal EKG response to LexiScan infusion. 2. No LexiScan induced chest pain or cardiac arrhythmia. 3. Normal blood pressure and heart rate response. 4. Sestamibi/sestamibi perfusion scan pending; see separate report. echo 2021 CONCLUSIONS ?Technically limited quality echocardiogram because of poor ?ultrasonic windows. ?LV systolic function is normal with EF of 55 to 60%. ?Mild mitral regurgitation ?Mild tricuspid regurgitation ?Compared to prior echocardiogram from 06/13/2022, no significant ?changes are seen Chronic Renal Insufficiency Hepatic fatty liver Metabolic Diabetes Mellitus and Thyroid Disease Anesthetic Plan ASA status: 3 Anesthesia: General Risk of > 500 ml blood loss (7ml/kg in children): No Medications/Allergies Home Medications Medication Instructions Recorded Confirmed Last Taken Type cholecalciferol (vitamin D3) 25 25 mcg PO QAM 03/26/20 11/12/22 11/12/22 History mcg (1,000 unit) capsule cranberry 500 mg capsule 500 mg PO QAM 03/26/20 11/12/22 11/12/22 History garlic 1,000 mg capsule 1,000 mg PO QAM 03/26/20 11/12/22 11/12/22 History turmeric root extract 500 mg 500 mg PO QAM 03/26/20 11/12/22 11/12/22 History capsule blood-glucose meter (Accu-Chek #1 ea 12/26/20 11/06/22 Unknown Rx Julee Plus Meter) lancets (Accu-Chek Multiclix #100 ea 12/26/20 11/06/22 Unknown Rx Lancet) albuterol sulfate 90 mcg/actuation 2 puff inhalation Q6H PRN 04/09/21 11/13/22 10/08/22 Rx aerosol inhaler (ProAir HFA) shortness of breath or wheezing 90 days #3 ea Milk Thistle [place] Tabs 1 tab PO DAILY 06/13/21 11/12/22 11/12/22 History cpap supply #1 ea 09/10/21 11/06/22 Unknown Rx amlodipine 10 mg tablet 10 mg PO QAM #90 tabs 10/15/21 11/12/22 11/12/22 Rx atorvastatin 20 mg tablet 20 mg PO BEDTIME #90 tabs 10/15/21 11/12/22 11/12/22 Rx balance of nature 3 tab PO QAM 10/15/21 11/12/22 11/12/22 History nitroglycerin 0.4 mg sublingual 0.4 mg sublingual Q5M PRN chest 03/24/22 11/12/22 Unknown Rx tablet pain #30 tabs omega-3 fatty acids-fish oil 684 1 cap PO QAM 06/12/22 11/12/22 11/12/22 History mg-1,200 mg capsule,delayed release ferrous gluconate 324 mg (37.5 mg 324 mg PO BIDWM #180 tabs 07/23/22 11/12/22 11/12/22 Rx iron) tablet furosemide 20 mg tablet 20 mg PO DAILY PRN Swelling #90 07/23/22 11/13/22 06/18/22 Rx tabs levothyroxine 88 mcg tablet 88 mcg PO QAM #90 tabs 07/23/22 11/12/22 11/13/22 07:00 Rx pantoprazole 40 mg tablet,delayed 40 mg PO QAM #90 tabs 07/23/22 11/12/22 11/12/22 Rx release primidone 50 mg tablet 100 mg PO QAM #90 tabs 07/23/22 11/12/22 11/12/22 Rx ropinirole 0.25 mg tablet 0.25 mg PO BEDTIME #90 tabs 07/23/22 11/12/22 11/11/22 Rx sitagliptin phosphate 100 mg 100 mg PO DAILY #90 tabs 07/23/22 11/12/22 11/12/22 Rx tablet (Januvia) hydralazine 50 mg tablet 50 mg PO TID #90 tabs 10/14/22 11/12/22 11/12/22 Rx hydroxychloroquine 200 mg tablet 200 mg PO BID #60 tabs 10/23/22 11/12/22 11/12/22 Rx mirtazapine 15 mg tablet (Remeron) 15 mg PO BEDTIME 11/12/22 11/12/22 11/12/22 History tolterodine 4 mg capsule,extended 8 mg PO QAM 11/12/22 11/12/22 11/12/22 History release 24 hr (Detrol [place]) duloxetine 60 mg capsule,delayed 60 mg PO BID 11/13/22 11/12/22 11/12/22 History release (Cymbalta) Allergies Allergy/AdvReac Type Severity Reaction Status Date / Time lisinopril Allergy Intermediate Unknown Verified 11/12/22 13:01 adhesive tape Allergy Unknown Verified 11/12/22 13:01 codeine Allergy ALGY-Hives Verified 11/12/22 13:01 quinine Allergy ALGY-Chills Verified 11/12/22 13:01 tramadol Allergy ALGY-Wheezi Verified 11/12/22 13:01 ng [facility] Anesthesia Medical History KELLY positive Anxiety and depression Asthma Chronic kidney disease Diabetes mellitus Diabetes mellitus with hyperglycemia Environmental allergies Essential tremor Fibromyalgia Hyperlipidemia Hypertension Insomnia Osteoarthritis Overactive bladder Portal vein thrombosis Renal mass, right Restless leg Surgical History H/O section H/O esophagogastroduodenoscopy (08/12/21) S/P bilateral cataract extraction S/P carpal tunnel release S/P cholecystectomy S/P hysterectomy S/P knee replacement S/P nasal surgery Status post colonoscopy (08/12/21) Family History Brother Myocardial infarct Hypertension Father Myocardial infarct Hypertension Mother CHF (congestive heart failure) Hypertension Liver disease Cancer Social History Smoking and tobacco status: former smoker Second hand smoke exposure: No Smoking risk assessment/counseling performed?: No Alcohol intake: never Desire information about alcohol rehabilitation?: No Counseling given: No Desire information about substance/drug rehabilitation?: No Counseling given: No Adopted: No Caregiver/support person: No Lives independently: Yes Household members: spouse Housing: House Marital status: Number of children: 3 service: No Current occupational status: retired Current occupational exposures/hazards: No Pets and animals: No Current gender identity: Female Data Anesthesia Cardiac Studies: Echocardiogram 06/12/22 Sestamibi Stress Test (Cardiology) 06/13/21
[2022-11-13] MEDS: sodium chloride 0.9% 1,000 ML 30 ML IV (12:38)
[2022-11-13 12:39] LABS: Glucose Point of Care 115 mg/dL (70-110)
--- NOTE | 2022-11-13 12:58 | W.PM.OPSUD ---
Surgery/Procedure H&P Update DATE OF PROCEDURE: November 13, 2022 DATE H&P PERFORMED: 10/29/22 H&P UPDATE INFORMATION: I have reviewed H&P completed within last 30 days PREOP DIAGNOSIS: Hematoma left knee PLANNED PROCEDURE: Operation Date: 11/13/22 13:45 Proposed Procedures p Left knee hematoma evacuation: 60555,M25.569(Left) - Laruent Holm MD
[2022-11-13] MEDS: ceFAZolin 2,000 MG in sodium chloride 0.9% (plus) 50 ML 100 MG IV (13:15)
--- NOTE | 2022-11-13 13:55 | PM.OP ---
Operative Report Date of procedure: November 13, 2022 Pre-op diagnosis: Preop Diagnosis Hematoma left knee Post-op diagnosis: Ganglion left knee Procedure done: Excision ganglion left knee Pathology: none sent Anesthesia: General Estimated blood loss (mL): 5 Tourniquet time (min): 2 Findings: The patient had a 3 x 3 cm mass over her anterior lateral knee. Upon entering the knee collection of fibrotic gelatinous fluid was expressed with a poorly defined capsular wall. Extended down to the joint capsule but the total knee was not visualized. Condition: stable Disposition: PACU Brief History: Lisa developed fluctuant area of swelling over the lateral knee after a fall 2 months ago and suspected hematoma. It failed to improve. It was a source of persistent pain. She is here today for elective drainage of the fluctuant left lateral knee mass Procedure: The patient was taken to the operating room. She was given 2 g of Ancef and a general anesthesia. She was prepped and draped in the supine position with the left knee exposed. A tourniquet was briefly inflated to 300 mmHg. A 3 cm long incision was made through the skin at which time quite a bit of a veinous bleeding was encountered. It was not felt that we were getting good arterial compression and the tourniquet was deflated with less bleeding. Hemostasis was provided with electrocautery. Beneath the subcutaneous fat subcutaneous fat a collection of fibrotic gelatinous fluid was expressed into the surgical field. The fluid collection was decompressed and the fluid suctioned from the surgical field.. A poorly developed a capsular structure surrounding the fluid collection was identified. Utilizing a rongeur this was removed. Debridement was accomplished down to the lateral joint capsule. At no point was the capsule violated and in particular no point where total knee components identified. Hemostasis provided with electrocautery. The wound was irrigated with saline. Deep tissues were closed with 2-0 Vicryl. The skin was closed with 3-0 Prolene. The incision was covered with Xeroflo gauze 4 x 4's Curlex and an Robel wrap. She was extubated taken to recovery room in stable condition
--- NOTE | 2022-11-13 14:09 | ANE.PACU2 ---
Inpatient post-anesthesia follow up: Airway intact: Yes Vital signs: Temperature 97.5 F Pulse Rate 91 Respiratory Rate 17 Blood Pressure 171/87 Pulse Oximetry 97 Oxygen Delivery Me thod Room Air Oxygen Flow Rate 8 Fraction of Inspir ed Oxygen Hydration adequate: Yes Nausea and vomiting: No Pain level: 1 Mental status: Baseline
== END 2022-11-13 15:03 | disposition home or self-care (01) ==
PROVIDERS: PCP Nurse Practitioner Family; Visit Provider Orthopaedic Surgery
PROC: (CPT 27328; principal; 2022-11-13 13:35)
DX: M67.462 Ganglion, left knee (principal); I12.9 Hypertensive chronic kidney disease with stage 1 through stage 4 chronic kidney disease, or unspecified chronic kidney disease; N18.9 Chronic kidney disease, unspecified; E11.22 Type 2 diabetes mellitus with diabetic chronic kidney disease; J45.909 Unspecified asthma, uncomplicated; E07.9 Disorder of thyroid, unspecified; E78.5 Hyperlipidemia, unspecified; Z87.891 Personal history of nicotine dependence; Z88.5 Allergy status to narcotic agent
CPT/HCPCS: 27328; 36416; 82962; J0690; J2405; J2704; J3010; J7030

== ENCOUNTER → 2022-11-25 08:59 | Outpatient (BNVA) | payer MEDICARE, OTHER, SELFPAY | PROVIDERS: PCP Nurse Practitioner Family; Visit Provider Nurse Practitioner Family | DX: Z98.890 Other specified postprocedural states (principal) | CPT/HCPCS: 99024 ==

== ENCOUNTER 2022-12-09 14:47 | Outpatient (CLI) | payer MEDICARE, OTHER, SELFPAY | END 2022-12-09 14:48 | disposition home or self-care (01) | LOC: SPT 14:48 | PROVIDERS: PCP Nurse Practitioner Family; Visit Provider Nurse Practitioner Family | DX: Z47.89 Encounter for other orthopedic aftercare (principal) | CPT/HCPCS: 97760; L1812 ==

== ENCOUNTER 2022-12-11 11:05 | Outpatient (CLI) | payer MEDICARE, OTHER, SELFPAY ==
--- NOTE | 2022-12-11 11:14 | MM_ITS ---
WS: [id number] BILATERAL SCREENING DIGITAL TOMOSYNTHESIS MAMMOGRAM WITH CAD HISTORY: Z12.39 - Encounter for other screening for malignant neop... COMPARISON: 12/05/2021 and 04/03/2016 Bilateral CC and MLO views with tomosynthesis and synthetic mammography submitted. Computer aided det ection analyzed. Breast composition: There are scattered areas of fibroglandular density. No suspicious masses, microc alcifications or architectural distortion. Benign bilateral rodlike calcifications. MM/[place] [id number] IMPRESSION: BI-RADS: 2-Benign FOLLOW UP: 1 Year Follow-up
== END 2022-12-11 11:06 | disposition home or self-care (01) ==
LOC: RAD 11:06
PROVIDERS: PCP Nurse Practitioner Family; Visit Provider Nurse Practitioner Family
DX: Z12.31 Encounter for screening mammogram for malignant neoplasm of breast (principal)
CPT/HCPCS: 77063; 77067

== ENCOUNTER 2022-12-25 09:08 | Outpatient (CLI) | payer MEDICARE, OTHER, SELFPAY ==
--- NOTE | 2022-12-25 09:00 | CT_ITS ---
WS: [id number] CT ABDOMEN AND PELVIS WITH AND WITHOUT CONTRAST HISTORY: RENAL MASS TECHNIQUE: Unenhanced 5 mm axial imaging first performed through the abdomen. Post contrast imaging t hrough the abdomen and pelvis. Oral contrast has been provided. Sagittal and coronal reformats are s ubmitted. All CT scans at [facility] use at least one of these dose optimization techniques: automated exposure control; mA and/or kV adjustment per patient size (includes targeted exams where d ose is matched to clinical indication); or iterative reconstruction. CONTRAST: Omnipaque 350; 95 mL IV. DLP: 1819.96 mGy.cm COMPARISON: CT, noncontrast 06/12/2022. Normal lung base. Very mildly enlarged heart. No pericardial or pleural effusion. Small hiatal hernia . RIGHT kidney: Enhancing solid mass extending exophytic from the mid RIGHT kidney. Broad-based attachm ent to the kidney and heterogeneous enhancement. Mass measures 2.5 x 3.1 cm and extends over length o f 2.9 cm. Very minimal increase in size since 06/12/2022. No additional mass and no obstruction. LEFT kidney: Lobulated cortex. No hydronephrosis or mass. Normal size liver. Prior cholecystectomy. Normal bile duct. Spleen is normal at 12.7 cm in length. No rmal pancreas and adrenal glands. Mild atherosclerosis aorta. No adenopathy or ascites. Normal stomach. No small bowel obstruction. Appendix is not definitely identified. No evidence for ap pendicitis. Mild diffuse constipation. Urinary bladder is negative. No filling defects or enhancement. Prior hysterectomy. L2-[address] moderate [address] disease. CT/CT abdomen pelvis wo/w [id number] IMPRESSION: 1. Solid RIGHT renal mass consistent with renal cell carcinoma measures 2.5 x 3.1 x 2.9 cm. Very minimal increase in size since 06/12/2022. 2. No additional renal mass and no enhancing nodules or mass in the urinary bl adder. 3. Prior cholecystectomy and hysterectomy. 4. Constipation. 5. No adenopathy.
[2022-12-25] MEDS: iohexol 350 mg/mL 500 mL Btl (per mL) IV (09:15)
[2022-12-25 09:47] LABS: Blood Urea Nitrogen 22 mg/dL (8-23)
== END 2022-12-25 09:09 | disposition home or self-care (01) ==
PROVIDERS: PCP Nurse Practitioner Family; Visit Provider Urology
DX: N28.89 Other specified disorders of kidney and ureter (principal); Z90.49 Acquired absence of other specified parts of digestive tract; Z90.710 Acquired absence of both cervix and uterus; K59.00 Constipation, unspecified
CPT/HCPCS: 74178; 81003; 82565; 84520; 99213; Q9967

== ENCOUNTER → 2022-12-26 10:41 | Outpatient (BNVA) | payer MEDICARE, OTHER, SELFPAY | PROVIDERS: PCP Nurse Practitioner Family; Visit Provider Internal Medicine Nephrology | DX: N18.2 Chronic kidney disease, stage 2 (mild) (principal) | CPT/HCPCS: 80069; 82043; 85025 ==

== ENCOUNTER → 2023-01-15 08:36 | Outpatient (BNVA) | payer MEDICARE, OTHER, SELFPAY | PROVIDERS: PCP Nurse Practitioner Family; Visit Provider Nurse Practitioner Family | DX: E78.5 Hyperlipidemia, unspecified (principal); E11.65 Type 2 diabetes mellitus with hyperglycemia; E11.22 Type 2 diabetes mellitus with diabetic chronic kidney disease; N18.32 Chronic kidney disease, stage 3b | CPT/HCPCS: 80053; 80061; 83036; 84443; 85025 ==

== ENCOUNTER → 2023-01-20 08:07 | Outpatient (BNVA) | payer MEDICARE, OTHER, SELFPAY | PROVIDERS: PCP Nurse Practitioner Family; Visit Provider Orthopaedic Surgery | DX: M67.462 Ganglion, left knee (principal) | CPT/HCPCS: 99024; 99213 ==

== ENCOUNTER 2023-01-23 10:57 | Outpatient (CLI) | payer MEDICARE, OTHER, SELFPAY ==
--- NOTE | 2023-01-23 14:30 | MR_ITS ---
WS: [id number] MRI LUMBAR SPINE NONCONTRAST TECHNIQUE: Sagittal T1, T2 and STIR imaging. Axial T1 and T2 imaging. CLINICAL INFORMATION: Radiculopathy COMPARISON: MRI 2018 FINDINGS: Mild lumbar curve. No acute compression. Disc space narrowing worse at L2-L3 with endplate degenerati ve changes. Disc bulging worse at L2-L3 and L3-L4. Tarlov cysts in the sacrum. L1-L2: Mild facet arthropathy. Spinal canal and foramen are patent. L2-L3: Mild disc bulging and osteophytic ridging. Impingement on the RIGHT subarticular recess and tr aversing RIGHT L3 nerve root. Mild central canal stenosis. Foramen are patent. L3-L4: Mild disc bulging with mild central canal stenosis. Impingement traversing LEFT L4 nerve root. Mild facet arthropathy. Foramen are patent. L4-L5: Mild disc bulging with impingement on the traversing LEFT L5 nerve root in the subarticular re cess. Moderate facet arthropathy. Mild bilateral foraminal narrowing LEFT greater than RIGHT. Mild fa cet arthropathy. L5-S1: Mild annular bulging. Slight effacement of ventral thecal sac. Spinal canal and foramen are pa tent. Moderate facet arthropathy. Visualized pelvic bony structures: Normal. Paravertebral soft tissues: Normal. Partially visualized solid RIGHT renal mass suspicious for neoplasm. This is better evaluated on the recent CT. MR/MR lumbar spine wo con* [id number] IMPRESSION: 1. Mild central canal stenosis L2-L3 is new from previous. Impingement jarocho ing RIGHT L3 nerve root in the subarticular recess. 2. Disc bulging L3-L4 with moderate central canal stenosis progressed compared to previous. Impingement traversing LEFT L4 nerve root. 3. Disc bulging L4-L5 with mild to moderate central canal stenosis. Impingemen t traversing LEFT L5 nerve root in the subarticular recess. Central canal steno sis has progressed at this level. 4. Disc space narrowing L2-L3 has progressed compared to previous. 5. Mild RIGHT L2-L3 and bilateral L4-L5 foraminal narrowing. 6. RIGHT renal neoplasm better evaluated on the recent CT.
== END 2023-01-23 10:58 | disposition home or self-care (01) ==
LOC: RAD 11:00
PROVIDERS: PCP Nurse Practitioner Family; Visit Provider Anesthesiology Pain Medicine
DX: Z98.890 Other specified postprocedural states (principal); M54.16 Radiculopathy, lumbar region; M48.061 Spinal stenosis, lumbar region without neurogenic claudication; M51.37 Other intervertebral disc degeneration, lumbosacral region
CPT/HCPCS: 72148; 80503; 87070; 87075; 87077; 87186; 87205; 89050; 99024; 99213

== ENCOUNTER → 2023-03-04 13:18 | Outpatient (BNVA) | payer MEDICARE, OTHER, SELFPAY | PROVIDERS: PCP Nurse Practitioner Family; Visit Provider Internal Medicine | DX: R76.8 Other specified abnormal immunological findings in serum (principal); M25.569 Pain in unspecified knee; M25.50 Pain in unspecified joint; K90.0 Celiac disease | CPT/HCPCS: 99214 ==

== ENCOUNTER 2023-03-10 14:41 | Emergency (ER) | payer MEDICARE, OTHER, SELFPAY ==
[2023-03-10 14:48] VITALS: BP 158/83; PULSE 115; RESP 16; TEMP 36.8; O2SAT 96; BMI 37.3
[2023-03-10 15:09] VITALS: BP 143/91; PULSE 98; RESP 16; O2SAT 98
--- NOTE | 2023-03-10 15:47 | ED_ITS ---
HPI - Skin/Abscess/Foreign Bdy General: Chief complaint: Skin/Abscess/Foreign Body Stated complaint: swelling on lt knee/pain/discoloration Time Seen by Provider: 03/10/23 14:54 History of Present Illness: 72 yo female patient presents to ER with large abscess to left knee. Pt states this has happened before and had to have it surgically drained. Pt denies any fever or symptomatic symptoms of illness. Pt does have an artificial knee replacement. Associated symptoms: Deny chills, fever(s), nausea or vomiting Review of Systems Const: Denies: fever(s), chills, body aches, change in appetite, change in weight, fatigue, malaise or diaphoresis Eyes: Denies: change in vision, blurry vision, blind spots, photophobia, eye discomfort, eye discharge, eye redness, floaters or seeing flashes ENMT: Denies: throat pain, uvular edema, enlarged tonsils, odynophagia, hoarseness, mouth pain, swelling of lips/tongue, oral sores, bleeding gums, dental pain, dry mouth, ear or mastoid pain, ear discharge, change in hearing, tinnitus, disequilibrium, nasal discharge, nasal congestion, post nasal drip or sinus pain Card: Denies: chest pain, palpitations, irregular heart rhythm, edema, swelling of feet/ankles, lightheadedness, syncope, pre-syncope, dyspnea on exertion, orthopnea, leg pain with exertion or acrocyanosis Resp: Denies: dyspnea, productive cough, non-productive cough, wheezing, stridor, pain on inspiration, change in phlegm color, hemoptysis or chest congestion GI: Denies: abdominal pain, nausea, vomiting, hematemesis, dysphagia, diarrhea, constipation, GI cramping, change in bowel habits or rectal pain : Denies: flank pain, difficulty voiding, dysuria, urinary frequency, urinary urgency, urinary hesitancy or hematuria Musc: Denies: neck pain, back pain, extremity pain, extremity swelling, joint pain, joint swelling, joint redness, joint warmth or deformity Skin/Breast: Denies: rash, pruritus, erythema, new lesions, changes in skin color or dry skin Neuro: Denies: headache(s), numbness in extremities, weakness in extremities, sensory changes, lack of coordination, difficulty walking, frequent falls, dizziness, vertigo, confusion, behavioral changes, Slurred speech present, difficulty communicating thoughts or seizure-like activity Psych: Denies: anxiety, depression, suicidal ideation or homicidal ideation Endo: Denies: polyuria, polydipsia, tired all the time, cold intolerance, excessive sweating, flushing, hot flashes or heat intolerance Jose/Lymph: Denies: easy bruising, easy bleeding, petechiae, purpura, enlarged lymph nodes or tender lymph nodes All/Imm: Denies: urticaria, throat swelling, tongue swelling, facial swelling, acute wheezing or itchy eyes PFSH ED PFSH: Medical History KELLY positive Anxiety and depression Asthma Chronic kidney disease Diabetes mellitus Diabetes mellitus with hyperglycemia Environmental allergies Essential tremor Fibromyalgia Hyperlipidemia Hypertension Insomnia Osteoarthritis Overactive bladder Portal vein thrombosis Renal mass, right Restless leg Surgical History H/O section H/O esophagogastroduodenoscopy (08/12/21) S/P bilateral cataract extraction S/P carpal tunnel release S/P cholecystectomy S/P hysterectomy S/P knee replacement S/P nasal surgery Status post colonoscopy (08/12/21) Family History Brother Myocardial infarct Hypertension Father , AGE 81 Myocardial infarct Hypertension Mother , AGE 85 CHF (congestive heart failure) Hypertension Liver disease Cancer Social History Smoking and tobacco status: former smoker Second hand smoke exposure: No Smoking risk assessment/counseling performed?: No Alcohol intake: never Desire information about alcohol rehabilitation?: No Counseling given: No Substance/Drug Use: never Desire information about substance/drug rehabilitation?: No Counseling given: No Adopted: No Caregiver/support person: No Lives independently: Yes Household members: spouse Housing: House Marital status: Number of children: 3 service: No Current occupational status: retired Current occupational exposures/hazards: No Pets and animals: No Do you think of yourself as: Straight/Heterosexual Current gender identity: Female Physical Exam Const: COMMON NORMALS: no acute distress, average body habitus, patient oriented x3, no limitations, healthy appearing, alert and well nourished HENMT: THROAT: no uvular edema Neck/C-Spine: COMMON NORMALS: no JVD Resp: COMMON NORMALS: normal respiratory effort, No retractions, No use of accessory muscles, clear to auscultation bilaterally and percussion normal AUSCULTATION: clear to auscultation bilaterally PERCUSSION: percussion normal Cardio: COMMON NORMALS: no JVD, regular rate, regular rhythm, S1 normal heart sound present, S2 normal heart sound present, No gallops present (Cardio), No clicks present (Cardio), No murmurs present (Cardio), No rub (Cardio) and Peripheral pulses 2+ throughout RATE: regular rate RHYTHM: regular rhythm HEART SOUNDS: S1 normal heart sound present and S2 normal heart sound present PERIPHERAL PULSES: Peripheral pulses 2+ throughout Extremity: NARRATIVE EXTREMITY EXAM: pt has a large abscess to left knee with surrounding erythema pt is NVI distally Neuro: COMMON NORMALS: patient oriented x3 SENSORIUM/ORIENTATION: Yes alert Procedures Abscess I/D Site: lower extremity (left knee) Local Anesthetic: lidocaine 1% Amount of anesthesia used (mL): 2 Technique: incised with #11 blade Amount of fluid expressed (mL): 50 Irrigation: Yes Packing used?: plain Course Vital Signs: Vital signs: Vital Signs Temperature 98.2 F 03/10/23 14:48 Pulse Rate 98 03/10/23 15:09 Respiratory Rate 16 03/10/23 15:09 Blood Pressure 143/91 03/10/23 15:09 Pulse Oximetry 98 03/10/23 15:09 Oxygen Delivery Me thod Room Air 03/10/23 15:09 MDM - Skin/Abscess/Foreign Bdy Medicial Decision Making Patient is well appearing non toxic and in no acute distress. 72 yo female patient presents to ER with large abscess to left knee. Pt states this has happened before and had to have it surgically drained. Pt denies any fever or symptomatic symptoms of illness. Pt does have an artificial knee replacement. Aimee see procedure note for I&D. I called and spoke with Dr. Lola raines who advised to drain and place on antibiotics and follow up with his office tomorrow Discharge Plan Discharge Patient Disposition: Home Clinical Impression: Abscess Condition: Stable Prescriptions: New Cleocin HCl 300 mg capsule 300 mg PO Q6H 7 Days Qty: 28 0RF No Action cholecalciferol (vitamin D3) 25 mcg (1,000 unit) capsule 25 mcg PO QAM garlic 1,000 mg capsule 1,000 mg PO QAM turmeric root extract 500 mg capsule 500 mg PO QAM cranberry 500 mg capsule 500 mg PO QAM Rx Instructions: administer with meals (DME) lancets [Accu-Chek Multiclix Lancet] Mis See Rx Instructions .ROUTE .MEDSUPPLY Qty: 100 3RF Rx Instructions: once daily (DME) blood-glucose meter [Accu-Chek Julee Plus Meter] Misc See Rx Instructions .ROUTE .MEDSUPPLY Qty: 1 0RF Rx Instructions: once daily balance of nature 3 tab PO QAM hydralazine 50 mg tablet 50 mg PO TID Qty: 90 5RF Januvia 100 mg tablet 100 mg PO DAILY Qty: 90 1RF ropinirole 0.25 mg tablet 0.25 mg PO BEDTIME Qty: 90 1RF primidone 50 mg tablet 100 mg PO QAM Qty: 90 1RF pantoprazole 40 mg tablet,delayed release (DR/EC) 40 mg PO QAM Qty: 90 1RF levothyroxine 88 mcg tablet 88 mcg PO QAM Qty: 90 1RF furosemide 20 mg tablet 20 mg PO DAILY PRN (Reason: Swelling) Qty: 90 1RF ferrous gluconate 324 mg (37.5 mg iron) tablet 324 mg PO BIDWM Qty: 180 1RF Detrol LA 4 mg capsule,extended release 24hr 8 mg PO QAM Qty: 90 1RF mirtazapine [Remeron] 15 mg tablet 15 mg PO BEDTIME Qty: 90 1RF atorvastatin 20 mg tablet 20 mg PO BEDTIME Qty: 90 1RF amlodipine 10 mg tablet 10 mg PO QAM Qty: 90 1RF albuterol sulfate [ProAir HFA] 90 mcg/actuation HFA aerosol inhaler 2 puff INHALATION Q6H PRN (Reason: shortness of breath or wheezing) 90 Days Qty: 3 1RF nitroglycerin 0.4 mg tablet, sublingual 0.4 mg sublingual Q5M PRN (Reason: chest pain) Qty: 30 2RF Rx Instructions: do not exceed 3 doses per episode hydroxychloroquine 200 mg tablet 200 mg PO BID Qty: 60 3RF prednisone 5 mg tablet 5 mg PO DAILY Qty: 30 0RF (DME) cpap supply See Rx Instructions .Route .MEDSUPPLY Qty: 1 5RF Rx Instructions: As directed cpap supplies (DME) HINGED KNEE BRACE See Rx Instructions .Route .MEDSUPPLY Qty: 1 0RF Rx Instructions: As directed Milk Thistle [place] Tabs 1 tab PO DAILY Cymbalta 60 mg capsule,delayed release(DR/EC) 60 mg PO BID hydrocodone-acetaminophen 5-325 mg tablet 1 tab PO Q4H Qty: 5 0RF omega-3 fatty acids-fish oil 684-1,200 mg Capsule,Delayed Release(Dr/Ec) 1 cap PO QAM Discharge Orders: Discharge ED (Routine); Ordered 03/10/23 Ordered By: Tammi Corcoran Referrals: Hanane Borden FNP-C [Primary Care Provider] - Discharge Diet: Advance as tolerated Discharge Activity: Increase activity as tolerated Patient Instructions: Opioid Safety, Pain Management Activity Restrictions/Additional Instructions: Please follow up with Ortho tomorrow. Return to ER in 24-48 hours for wound recheck or packing removal if unable to see ortho for any reason Take antibiotics as prescribed Return to ER with any worsening of symptoms or concerns as discussed Coding Level of Care Code ED Exceptional Children Teacher Assistant for Deonna Bell
[2023-03-10 15:48] VITALS: BP 162/108; PULSE 75; RESP 18; O2SAT 96
[2023-03-10] MEDS: lidocaine 1% INJ 10 mL (per mL) INTRADERMA (15:48)
== END 2023-03-10 16:06 | disposition home or self-care (01) ==
PROVIDERS: Emergency Provider Registered Nurse; PCP Nurse Practitioner Family
DX: L02.416 Cutaneous abscess of left lower limb (principal); Z87.891 Personal history of nicotine dependence; E11.22 Type 2 diabetes mellitus with diabetic chronic kidney disease; I12.9 Hypertensive chronic kidney disease with stage 1 through stage 4 chronic kidney disease, or unspecified chronic kidney disease; N18.9 Chronic kidney disease, unspecified; E78.5 Hyperlipidemia, unspecified
CPT/HCPCS: 10060; 87070; 87186; 99283

== ENCOUNTER 2023-03-12 13:28 | Emergency (ER) | payer MEDICARE, OTHER, SELFPAY ==
[2023-03-12 13:38] VITALS: BP 196/83; PULSE 99; RESP 16; TEMP 36.9; O2SAT 95
[2023-03-12 14:21] LABS: Basophils # 0.1 10^3/uL (0.0-0.1); Basophils % 0.8 %; Eosinophils # 0.3 10^3/uL (0.0-0.8); Eosinophils % 3.4 %; Hematocrit 33.6 % (37.0-47.0); Hemoglobin 10.5 g/dL (11.5-15.3); Lymphocytes % 12.9 %; Mean Corpuscular HGB Conc 31.3 g/dL (30.0-36.0); Mean Corpuscular Volume 86.4 fl (81-99); Mean Platelet Volume 8.6 fL (7.4-10.4); Monocytes # 0.9 10^3/uL (0.2-0.9); Neutrophils # 5.59 10^3/uL (1.8-7.7); Neutrophils % 70.9 %; Nucleated Red Blood Cells % 0 %; Platelet Count 272 10^3/cmm (130-400); Red Blood Count 3.89 10^6/uL (4.1-5.3); Red Cell Distribution Width 14.6 % (12.1-15.1); White Blood Count 7.9 10^3/uL (4.0-10.0)
[2023-03-12 14:35] LABS: Alanine Aminotransferase 17 U/L (0-33); Albumin Level 3.3 g/dL (3.5-5.2); Alkaline Phosphatase 75 U/L (35-105); Anion Gap 18.2 (5-19); Aspartate Amino Transferase 19 U/L (0-32); Blood Urea Nitrogen 30 mg/dL (8-23); Calcium 8.8 mg/dL (8.5-10.5); Carbon Dioxide 21 mmol/L (22-29); Chloride 103 mmol/L (98-107); Globulin 4.3 g/dL (1.3-4.6); Glucose 104 mg/dL (65-115); Osmolality Calculated 292 mOsm/kg (285-295); Potassium 4.2 mmol/L (3.5-5.1); Sodium 138 mmol/L (136-145); Total Bilirubin 0.3 mg/dL (0.15-1.2); Total Protein 7.6 g/dL (6.6-8.7)
--- NOTE | 2023-03-12 23:11 | ED_ITS ---
HPI - Skin/Abscess/Foreign Bdy General: Chief complaint: Skin/Abscess/Foreign Body Stated complaint: mass on left knee has opened Time Seen by Provider: 03/12/23 14:00 History of Present Illness: This patient is a 72 year old presenting with an abscess on her left knee. She reports that the area was very large on 03/10 and she was seen here. She had an I and D and returns today concerned that it is still draining a lot. She also thought that the whole thing had split open - but has since realized that she was seeing the packing material stuck to her skin. She has had this area drained previously - Dr. Holm has done surgery to replace both her knees. He has also seen her for this swollen area and did surgery on it try to remove it. It came back and he told her that he couldn't do anything else for it. She was put on cleocin on her visit 2 days ago. She says there was a culture done and wonders about the results. She feels ok other than her concerns about the drainage. PFSH ED PFSH: Medical History KELLY positive Anxiety and depression Asthma Chronic kidney disease Diabetes mellitus Diabetes mellitus with hyperglycemia Environmental allergies Essential tremor Fibromyalgia Hyperlipidemia Hypertension Insomnia Osteoarthritis Overactive bladder Portal vein thrombosis Renal mass, right Restless leg Surgical History H/O section H/O esophagogastroduodenoscopy (08/12/21) S/P bilateral cataract extraction S/P carpal tunnel release S/P cholecystectomy S/P hysterectomy S/P knee replacement S/P nasal surgery Status post colonoscopy (08/12/21) Family History Brother Myocardial infarct Hypertension Father , AGE 81 Myocardial infarct Hypertension Mother , AGE 85 CHF (congestive heart failure) Hypertension Liver disease Cancer Social History Smoking and tobacco status: former smoker Second hand smoke exposure: No Smoking risk assessment/counseling performed?: No Alcohol intake: never Desire information about alcohol rehabilitation?: No Counseling given: No Substance/Drug Use: never Desire information about substance/drug rehabilitation?: No Counseling given: No Adopted: No Caregiver/support person: No Lives independently: Yes Household members: spouse Housing: House Marital status: Number of children: 3 service: No Current occupational status: retired Current occupational exposures/hazards: No Pets and animals: No Do you think of yourself as: Straight/Heterosexual Current gender identity: Female Physical Exam Const: COMMON NORMALS: no acute distress, patient oriented x3, no limitations and alert GENERAL APPEARANCE: cooperative and comfortable Eye: GENERAL EYE: appearance normal, both eyes and all related structures Resp: COMMON NORMALS: normal respiratory effort and No use of accessory muscles Extremity: COMMON NORMALS: normal to inspection Neuro: COMMON NORMALS: patient oriented x3, moves all extremities, no focal motor deficits and no sensory deficits noted SENSORIUM/ORIENTATION: Yes alert Psych: COMMON NORMALS: mental status grossly normal, cooperative and normal a ffect Skin: COMMON NORMALS: no rashes or lesions noted and turgor normal NARRATIVE SKIN EXAM: left knee, lateral aspect, with open and draining abscess with surrounding cellulitis. Packing in place. Serosanguinous drainage GENERAL SKIN EXAM: no rashes or lesions noted and turgor normal Course Vital Signs: Vital signs: Vital Signs Temperature 98.4 F 03/12/23 13:38 Pulse Rate 99 03/12/23 13:38 Respiratory Rate 16 03/12/23 13:38 Blood Pressure 196/83 03/12/23 13:38 Pulse Oximetry 95 03/12/23 13:38 Oxygen Delivery Me thod Room Air 03/12/23 13:38 MDM - Skin/Abscess/Foreign Bdy Medicial Decision Making Packing removed and replaced - new dressing. culture shows e.coli - which is kind of unusual for a skin lesion. The area has grown e coli before as well. Will change antibiotic from cleocin to cephalexin - hopefully better coverage for e coli. She will follow up with PCP for recheck. Lab Data 03/12/23 14:10 03/12/23 14:10 Laboratory Results WBC 7.9 10^3/uL (4.0-10.0) 03/12/23 14:10 RBC 3.89 10^6/uL (4.1-5.3) L 03/12/23 14:10 Hgb 10.5 g/dL (11.5-15.3) L 03/12/23 14:10 Hct 33.6 % (37.0-47.0) L 03/12/23 14:10 MCV 86.4 fl (81-99) 03/12/23 14:10 MCH 27.0 pg (28.0-34.0) L 03/12/23 14:10 MCHC 31.3 g/dL (30.0-36.0) 03/12/23 14:10 RDW 14.6 % (12.1-15.1) 03/12/23 14:10 Plt Count 272 10^3/cmm (130-400) 03/12/23 14:10 MPV 8.6 fL (7.4-10.4) 03/12/23 14:10 Neut % (Auto) 70.9 % 03/12/23 14:10 Lymph % (Auto) 12.9 % 03/12/23 14:10 Noble % (Auto) 11.0 % 03/12/23 14:10 Eos % (Auto) 3.4 % 03/12/23 14:10 Baso % (Auto) 0.8 % 03/12/23 14:10 Neut # (Auto) 5.59 10^3/uL (1.8-7.7) 03/12/23 14:10 Lymph # (Auto) 1.0 10^3/uL (0.8-4.8) 03/12/23 14:10 Noble # (Auto) 0.9 10^3/uL (0.2-0.9) 03/12/23 14:10 Eos # (Auto) 0.3 10^3/uL (0.0-0.8) 03/12/23 14:10 Baso # (Auto) 0.1 10^3/uL (0.0-0.1) 03/12/23 14:10 Nucleated RBC % (auto) 0 % 03/12/23 14:10 Nucleated RBCs # 0.0 /100WBC 03/12/23 14:10 Sodium 138 mmol/L (136-145) 03/12/23 14:10 Potassium 4.2 mmol/L (3.5-5.1) 03/12/23 14:10 Chloride 103 mmol/L (98-107) 03/12/23 14:10 Carbon Dioxide 21 mmol/L (22-29) L 03/12/23 14:10 Anion Gap 18.2 (5-19) 03/12/23 14:10 BUN 30 mg/dL (8-23) H 03/12/23 14:10 Creatinine 1.5 mg/dL (0.5-0.9) H 03/12/23 14:10 GFR Calculation Not Reportable 03/12/23 14:10 Glucose 104 mg/dL (65-115) 03/12/23 14:10 Calculated Osmolality 292 mOsm/kg (285-295) 03/12/23 14:10 Calcium 8.8 mg/dL (8.5-10.5) 03/12/23 14:10 Total Bilirubin 0.3 mg/dL (0.15-1.2) 03/12/23 14:10 AST 19 U/L (0-32) 03/12/23 14:10 ALT 17 U/L (0-33) 03/12/23 14:10 Alkaline Phosphatase 75 U/L (35-105) 03/12/23 14:10 Total Protein 7.6 g/dL (6.6-8.7) 03/12/23 14:10 Albumin 3.3 g/dL (3.5-5.2) L 03/12/23 14:10 Globulin 4.3 g/dL (1.3-4.6) 03/12/23 14:10 Discharge Plan Discharge Patient Disposition: Home Clinical Impression: Cellulitis, Abscess of skin or subcutaneous tissue, E coli infection, Diabetes Condition: Stable Prescriptions: New cephalexin 500 mg capsule 500 mg PO QID 10 Days Qty: 40 0RF Discontinued clindamycin HCl [Cleocin HCl] 300 mg capsule 300 mg PO Q6H 7 Days Qty: 28 0RF No Action cholecalciferol (vitamin D3) 25 mcg (1,000 unit) capsule 25 mcg PO QAM garlic 1,000 mg capsule 1,000 mg PO QAM turmeric root extract 500 mg capsule 500 mg PO QAM cranberry 500 mg capsule 500 mg PO QAM Rx Instructions: administer with meals (DME) lancets [Accu-Chek Multiclix Lancet] Misc See Rx Instructions .ROUTE .MEDSUPPLY Qty: 100 3RF Rx Instructions: once daily (DME) blood-glucose meter [Accu-Chek Julee Plus Meter] Misc See Rx Instructions .ROUTE .MEDSUPPLY Qty: 1 0RF Rx Instructions: once daily balance of nature 3 tab PO QAM hydralazine 50 mg tablet 50 mg PO TID Qty: 90 5RF Januvia 100 mg tablet 100 mg PO DAILY Qty: 90 1RF ropinirole 0.25 mg tablet 0.25 mg PO BEDTIME Qty: 90 1RF primidone 50 mg tablet 100 mg PO QAM Qty: 90 1RF pantoprazole 40 mg tablet,delayed release (DR/EC) 40 mg PO QAM Qty: 90 1RF levothyroxine 88 mcg tablet 88 mcg PO QAM Qty: 90 1RF furosemide 20 mg tablet 20 mg PO DAILY PRN (Reason: Swelling) Qty: 90 1RF ferrous gluconate 324 mg (37.5 mg iron) tablet 324 mg PO BIDWM Qty: 180 1RF Detrol LA 4 mg capsule,extended release 24hr 8 mg PO QAM Qty: 90 1RF mirtazapine [Remeron] 15 mg tablet 15 mg PO BEDTIME Qty: 90 1RF atorvastatin 20 mg tablet 20 mg PO BEDTIME Qty: 90 1RF amlodipine 10 mg tablet 10 mg PO QAM Qty: 90 1RF albuterol sulfate [ProAir HFA] 90 mcg/actuation HFA aerosol inhaler 2 puff INHALATION Q6H PRN (Reason: shortness of breath or wheezing) 90 Days Qty: 3 1RF nitroglycerin 0.4 mg tablet, sublingual 0.4 mg sublingual Q5M PRN (Reason: chest pain) Qty: 30 2RF Rx Instructions: do not exceed 3 doses per episode hydroxychloroquine 200 mg tablet 200 mg PO BID Qty: 60 3RF prednisone 5 mg tablet 5 mg PO DAILY Qty: 30 0RF (DME) cpap supply See Rx Instructions .Route .MEDSUPPLY Qty: 1 5RF Rx Instructions: As directed cpap supplies (DME) HINGED KNEE BRACE See Rx Instructions .Route .MEDSUPPLY Qty: 1 0RF Rx Instructions: As directed Milk Thistle [place] Tabs 1 tab PO DAILY Cymbalta 60 mg capsule,delayed release(DR/EC) 60 mg PO BID hydrocodone-acetaminophen 5-325 mg tablet 1 tab PO Q4H Qty: 5 0RF omega-3 fatty acids-fish oil 684-1,200 mg Capsule,Delayed Release(Dr/Ec) 1 cap PO QAM Discharge Orders: Discharge ED (Routine); Ordered 03/12/23 Ordered By: Emily Roach Referrals: Hanane Borden FNP-C [Primary Care Provider] - Patient Instructions: Opioid Safety, Pain Management Activity Restrictions/Additional Instructions: The wound will continue to drain and that is ok. The packing should be removed in 2 more days - or if it falls out sooner, that is ok too. STOP the Cleocin and start the cephalexin instead. Coding Level of Care Code ED Business Integration Analyst for Deonna Bell
== END 2023-03-12 15:00 | disposition home or self-care (01) ==
PROVIDERS: Emergency Medicine; Emergency Provider Emergency Medicine; PCP Nurse Practitioner Family
DX: L02.416 Cutaneous abscess of left lower limb (principal); L03.116 Cellulitis of left lower limb; A49.8 Other bacterial infections of unspecified site; Z87.891 Personal history of nicotine dependence; E11.22 Type 2 diabetes mellitus with diabetic chronic kidney disease; I12.9 Hypertensive chronic kidney disease with stage 1 through stage 4 chronic kidney disease, or unspecified chronic kidney disease; N18.9 Chronic kidney disease, unspecified; E78.5 Hyperlipidemia, unspecified
CPT/HCPCS: 36415; 80053; 85025; 99283

== ENCOUNTER → 2023-09-09 14:09 | Outpatient (BNVA) | payer MEDICARE, OTHER, SELFPAY | PROVIDERS: PCP Nurse Practitioner Family; Visit Provider Nurse Practitioner Family | DX: G25.81 Restless legs syndrome (principal); G25.0 Essential tremor; M79.89 Other specified soft tissue disorders; E78.5 Hyperlipidemia, unspecified; I10 Essential (primary) hypertension; J45.20 Mild intermittent asthma, uncomplicated; N28.89 Other specified disorders of kidney and ureter; E11.65 Type 2 diabetes mellitus with hyperglycemia; M25.50 Pain in unspecified joint | CPT/HCPCS: 80053; 80061; 83036; 84443; 85025 ==

== ENCOUNTER → 2023-11-06 11:09 | Outpatient (BNVA) | payer MEDICARE, OTHER, SELFPAY | PROVIDERS: PCP Nurse Practitioner Family; Visit Provider Nurse Practitioner Family | DX: I10 Essential (primary) hypertension (principal) | CPT/HCPCS: 80053 ==

== ENCOUNTER → 2024-02-22 09:53 | Outpatient (BNVA) | payer MEDICARE, OTHER, SELFPAY | PROVIDERS: PCP Nurse Practitioner Family; Visit Provider Nurse Practitioner Family | DX: E78.5 Hyperlipidemia, unspecified; E11.65 Type 2 diabetes mellitus with hyperglycemia | CPT/HCPCS: 80053; 80061; 83036; 84443; 85025 ==

== ENCOUNTER → 2024-03-08 11:00 | Outpatient (BNVA) | payer MEDICARE, OTHER, SELFPAY | PROVIDERS: PCP Nurse Practitioner Family; Visit Provider Internal Medicine Rheumatology | DX: R76.8 Other specified abnormal immunological findings in serum (principal); K90.0 Celiac disease; M05.79 Rheumatoid arthritis with rheumatoid factor of multiple sites without organ or systems involvement; M19.041 Primary osteoarthritis, right hand; M19.042 Primary osteoarthritis, left hand; Z79.899 Other long term (current) drug therapy; M25.551 Pain in right hip; Z87.891 Personal history of nicotine dependence | CPT/HCPCS: 99214 ==

== ENCOUNTER → 2024-03-15 14:27 | Outpatient (BNVA) | payer MEDICARE, OTHER, SELFPAY | PROVIDERS: PCP Nurse Practitioner Family; Visit Provider Internal Medicine Rheumatology | DX: M19.041 Primary osteoarthritis, right hand (principal); M19.042 Primary osteoarthritis, left hand; M05.79 Rheumatoid arthritis with rheumatoid factor of multiple sites without organ or systems involvement; M25.551 Pain in right hip; Z71.89 Other specified counseling | CPT/HCPCS: 20600; 20610; J1010 ==

== ENCOUNTER 2024-06-28 10:55 | Outpatient (CLI) | payer MEDICARE, OTHER, SELFPAY ==
--- NOTE | 2024-06-28 10:58 | CT_ITS ---
WS: [id number] CT ABDOMEN AND PELVIS WITH AND WITHOUT CONTRAST HISTORY: RIGHT RENAL MASS TECHNIQUE: Unenhanced 3 mm axial imaging first performed through the abdomen. Post contrast imaging t hrough the abdomen and pelvis. Oral contrast is not been provided. Sagittal and coronal reformats ar e submitted. All CT scans at [facility] use at least one of these dose optimization technique s: automated exposure control; mA and/or kV adjustment per patient size (includes targeted exams wher e dose is matched to clinical indication); or iterative reconstruction. CONTRAST: Omnipaque 350; 95 mL IV. DLP: 2347.95 mGy.cm COMPARISON: 12/25/2022, 06/12/2022 Lung bases are clear. No pneumonia. Normal size heart. There are a few scattered too small to characterize hypodensities throughout the liver. No mass. Norm al portal vein. Prior cholecystectomy. Normal spleen. Normal pancreas. No pancreatic duct dilatation. No adrenal mass. RIGHT kidney: Reidentified is a solid enhancing tumor exophytic from the mid RIGHT kidney. Mass measu res 2.5 x 3.2 cm and extends over a length of 3.3 cm. Prior measurement of 2.5 x 3.1 x 2.9 cm. Minima l increase in size. This is a solid tumor. The remaining cortex is slightly lobulated with normal enh ancement. No additional mass. No obstruction. LEFT kidney: Moderate atrophy of the LEFT kidney with cortical thinning. No obstruction. Mild atherosclerosis aorta. No GI tract obstruction. Normal appendix. Mild diffuse constipation. No ascites or adenopathy. Normal urinary bladder. No ureteral mass. Degenerative disc disease is advanced at L2-3. CT/CT abdomen pelvis wo/w [id number] IMPRESSION: 1. Minimal increase in size of the solid RIGHT renal mass most consistent with a renal cell carcinoma. Renal mass now measures 2.5 x 3.2 x 3.2 cm. 2. Moderate atrophy LEFT kidney with cortical thinning and lobulations. 3. No metastatic disease within the abdomen or pelvis. 4. Prior cholecystectomy and hysterectomy. 5. Mild diffuse constipation. 6. No ascites.
[2024-06-28] MEDS: iohexol 350 mg/mL 500 mL Btl (per mL) IV (12:13)
[2024-06-28 12:14] LABS: Blood Urea Nitrogen 17 mg/dL (8-23)
== END 2024-06-28 10:56 | disposition home or self-care (01) ==
LOC: RAD 10:56
PROVIDERS: Radiology Diagnostic Radiology; PCP Nurse Practitioner Family; Visit Provider Nurse Practitioner Family
DX: N28.89 Other specified disorders of kidney and ureter (principal); N26.1 Atrophy of kidney (terminal); Z90.49 Acquired absence of other specified parts of digestive tract; Z90.710 Acquired absence of both cervix and uterus
CPT/HCPCS: 74178; 82565; 84520

== ENCOUNTER → 2025-03-15 10:05 | Outpatient (BNVA) | payer MEDICARE, OTHER, SELFPAY | PROVIDERS: PCP Nurse Practitioner Family; Visit Provider Nurse Practitioner Family | DX: E11.65 Type 2 diabetes mellitus with hyperglycemia (principal); E78.5 Hyperlipidemia, unspecified | CPT/HCPCS: 80053; 80061; 83036; 84443; 85025 ==

== ENCOUNTER 2025-03-16 12:35 | Outpatient (CLI) | payer MEDICARE, OTHER, SELFPAY ==
--- NOTE | 2025-03-16 13:40 | MM_ITS ---
WS: [id number] BILATERAL 3D TOMOSYNTHESIS DIGITAL SCREENING MAMMOGRAPHY WITH CAD CLINICAL INFORMATION: Z12.39 - Encounter for other screening for malignant neop... HISTORY: Screening mammogram. No current complaints. COMPARISON: 2022 TECHNIQUE: Bilateral CC and MLO views. FINDINGS: Scattered fibroglandular densities bilaterally. No suspicious focal mass, asymmetry, calcifications, or architectural distortion. No evidence of malignancy. Stable secretory calcifications. Vascular calcification. MM/MM [facility] tomosynthesis [id number] IMPRESSION: DENSITY: There are scattered areas of fibroglandular density. BI-RADS: 2 - Benign. FOLLOW UP: 1 Year Follow-up Recommend return to annual screening mammography.
== END 2025-03-16 12:36 | disposition home or self-care (01) ==
LOC: RAD 12:35
PROVIDERS: PCP Nurse Practitioner Family; Visit Provider Nurse Practitioner Family
DX: Z12.39 Encounter for other screening for malignant neoplasm of breast (principal); R92.323 Mammographic fibroglandular density, bilateral breasts; R92.1 Mammographic calcification found on diagnostic imaging of breast
CPT/HCPCS: 77063; 77067

== ENCOUNTER → 2025-03-20 13:19 | Outpatient (BNVA) | payer MEDICARE, OTHER, SELFPAY | PROVIDERS: PCP Nurse Practitioner Family; Visit Provider Student in an Organized Health Care Education/Training Program | DX: Z12.11 Encounter for screening for malignant neoplasm of colon (principal); R12 Heartburn | CPT/HCPCS: 99204 ==

== ENCOUNTER 2025-05-03 12:55 | Outpatient (CLI) | payer MEDICARE, OTHER, SELFPAY ==
--- NOTE | 2025-05-03 13:15 | US_ITS ---
WS: [id number] INDICATION: Localized swelling LEFT medial calf TECHNIQUE: Ultrasound soft tissue area of concern patient directed FINDINGS: Ultrasound soft tissue LEFT medial calf patient directed. Normal underlying calf musculature and subcutaneous soft tissues. No visualized varicosities. No visualized cystic or solid lesions in this area. US/US soft tissue/extremity [id number] IMPRESSION: No suspicious findings visualized in the area of concern
== END 2025-05-03 12:56 | disposition home or self-care (01) ==
LOC: RAD 12:58
PROVIDERS: PCP Nurse Practitioner Family; Visit Provider Nurse Practitioner Family
DX: S89.90XA Unspecified injury of unspecified lower leg, initial encounter (principal); R22.42 Localized swelling, mass and lump, left lower limb; X58.XXXA Exposure to other specified factors, initial encounter
CPT/HCPCS: 76882

== ENCOUNTER → 2025-05-29 09:16 | Outpatient (BNVA) | payer MEDICARE, OTHER, SELFPAY | PROVIDERS: PCP Nurse Practitioner Family; Visit Provider Internal Medicine Rheumatology | DX: M05.79 Rheumatoid arthritis with rheumatoid factor of multiple sites without organ or systems involvement (principal); M19.041 Primary osteoarthritis, right hand; M19.042 Primary osteoarthritis, left hand; Z71.85 Encounter for immunization safety counseling; Z79.899 Other long term (current) drug therapy | CPT/HCPCS: 99214 ==

== ENCOUNTER 2025-06-06 07:07 | Day surgery (SDC) | payer MEDICARE, OTHER, SELFPAY ==
[2025-06-06 07:21] VITALS: BP 198/100; PULSE 94; RESP 16; TEMP 37.2; O2SAT 98; BMI 36.3
--- NOTE | 2025-06-06 08:07 | ANES.PREANE2 ---
Pre-Anesthetic Assessment Height/Weight: Height 1.5 m Weight 81.647 kg Temp Pulse Resp BP Pulse Ox O2 Del Method 99.0 F 94 16 198/100 98 Room Air 06/06/25 07:21 06/06/25 07:21 06/06/25 07:21 06/06/25 07:21 06/06/25 07:21 06/06/25 07:21 Preop Diagnosis: Screening Operation Date: 06/06/25 08:30 Proposed Procedures p EGD with Biopsy [id number] G0121, Z12.11 R12(Not Applicable) - Rene Amaro MD s Colonoscopy(Not Applicable) - Rene Amaro MD Familial anesthetic complications: none Was Beta Alex taken within 24 hours: N/A Was Clonidine taken within 24 hours: N/A Last intake: Intake Last Liquid Date 06/05/25 Last Liquid Time 22:00 Last Solid Date 06/06/25 Last Solid Time 15:00 Social No alcohol and No tobacco Exam alert, oriented x 3, clear to auscultation bilaterally and regular rate & rhythm Airway Submandibular: within normal limits Cervical ROM: within normal limits Mallampati: Class II Dentition: false History/ROS No significant history except as noted and No significant complaints Pulmonary Asthma and Shortness of Breath CV/HEM Hypertension and Murmur Chronic Renal Insufficiency Hepatic None reported GI None reported Metabolic Diabetes Mellitus and Hyperlipidemia [facility] [place] Rheumatoid Arthritis Neuropsych Anxiety and Depression Anesthetic Plan ASA status: 3 Anesthesia: MAC Risk of > 500 ml blood loss (7ml/kg in children): No Medications/Allergies Home Medications ?Medication ?Instructions ?Recorded ?Confirmed ?Last Taken ?Type cranberry 500 mg capsule 500 mg PO QAM 03/26/20 06/06/25 06/05/25 History Milk Thistle [place] Tabs 1 tab PO DAILY 06/13/21 06/06/25 06/05/25 History cpap supply #1 ea 09/10/21 05/29/25 Unknown Rx nitroglycerin 0.4 mg sublingual 0.4 mg sublingual Q5M PRN chest 03/24/22 06/06/25 Unknown Rx tablet pain #30 tabs omega-3 fatty acids-fish oil 684 1 cap PO QAM 06/12/22 06/06/25 06/05/25 History mg-1,200 mg capsule,delayed release albuterol sulfate 90 mcg/actuation 2 puff inhalation Q6H PRN 03/15/25 06/06/25 Unknown Rx aerosol inhaler (ProAir HFA) shortness of breath or wheezing 90 days #3 ea amlodipine 10 mg tablet 10 mg PO QAM #90 tabs 03/15/25 06/06/25 06/06/25 Rx atorvastatin 20 mg tablet 20 mg PO BEDTIME #90 tabs 03/15/25 06/06/25 06/05/25 Rx duloxetine 60 mg capsule,delayed 60 mg PO BID #180 caps 03/15/25 06/06/25 06/05/25 Rx release (Cymbalta) furosemide 20 mg tablet 20 mg PO DAILY PRN Swelling #90 03/15/25 06/06/25 Unknown Rx tabs levothyroxine 88 mcg tablet 88 mcg PO QAM #90 tabs 03/15/25 06/06/25 06/05/25 Rx mirtazapine 30 mg tablet 30 mg PO BEDTIME #90 tabs 03/15/25 06/06/25 06/05/25 Rx pantoprazole 40 mg tablet,delayed 40 mg PO BID #60 tabs 03/15/25 06/06/25 06/05/25 Rx release primidone 50 mg tablet 100 mg (2 x 50 mg) PO QAM #90 tabs 03/15/25 06/06/25 06/05/25 Rx ropinirole 0.25 mg tablet 0.25 mg PO BEDTIME #90 tabs 03/15/25 06/06/25 06/05/25 Rx tolterodine 4 mg capsule,extended 8 mg (2 x 4 mg) PO QAM #90 caps 03/15/25 06/06/25 06/05/25 Rx release 24 hr (Detrol [place]) losartan 100 mg tablet 100 mg PO DAILY #30 tabs 04/27/25 06/06/25 06/05/25 Rx leflunomide 20 mg tablet 20 mg PO DAILY #90 tabs 05/29/25 06/06/25 06/05/25 Rx prednisone 5 mg tablet 5 mg PO DAILY #90 tabs 05/29/25 06/06/25 Unknown Rx Allergies Allergy/AdvReac Type Severity Reaction Status Date / Time lisinopril Allergy Intermediate Unknown Verified 06/06/25 07:16 adhesive tape Allergy Unknown Verified 06/06/25 07:16 codeine Allergy ALGY-Hives Verified 06/06/25 07:16 quinine Allergy ALGY-Chills Verified 06/06/25 07:16 tramadol Allergy ALGY-Wheezi Verified 06/06/25 07:16 ng Current Medications Generic Name Dose Route Start Last Admin Trade Name Freq PRN Reason Stop Dose Admin Sodium Chloride 1,000 mls @ 15 mls/hr 06/06/25 07:12 06/06/25 07:29 Sodium Chloride 0.9% IV 06/07/25 07:11 15 mls/hr .Q24H PRN Administration COLONOSCOPY FLUIDS PFSH Anesthesia Medical History (Updated 05/29/25 @ 10:33 by Baldev Colon MD) Immunization counseling Greater trochanteric pain syndrome of right lower extremity High risk medication use Osteoarthritis of hands, 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 KELLY positive Diabetes mellitus with hyperglycemia Renal mass, right Portal vein thrombosis Asthma Diabetes mellitus Insomnia Restless leg Overactive bladder Essential tremor Chronic kidney disease Environmental allergies Fibromyalgia Osteoarthritis Hypertension Anxiety and depression Hyperlipidemia Surgical History H/O esophagogastroduodenoscopy (08/12/21) Status post colonoscopy (08/12/21) S/P bilateral cataract extraction S/P knee replacement S/P carpal tunnel release S/P cholecystectomy H/O section S/P hysterectomy S/P nasal surgery Family History Brother Myocardial infarct Hypertension Father , AGE 81 Myocardial infarct Hypertension Mother , AGE 85 Congestive heart failure (CHF) Hypertension Liver disease Cancer Social History Smoking and tobacco/nicotine status: never used tobacco/nicotine Second hand smoke exposure: No Alcohol intake: never Substance/Drug Use: never Adopted: No Caregiver/support person: No Lives independently: Yes Household members: spouse Housing: House Marital status: Number of children: 3 service: No Current occupational status: retired Current occupational exposures/hazards: No Pets and animals: No Do you think of yourself as: Straight/Heterosexual Current gender identity: Female Data Anesthesia Cardiac Studies: Echocardiogram 06/12/22 Sestamibi Stress Test (Cardiology) 06/13/21
--- NOTE | 2025-06-06 08:24 | W.PM.OPSFHP ---
Same Day Surgery H&P Indication for Procedure/HPI DATE OF PROCEDURE: June 06, 2025 CHIEF COMPLAINT/INDICATIONFOR SURGICAL PROCEDURE: screening colnoscopy, heartburn PREOP DIAGNOSIS: screening colnoscopy, heartburn PLANNED PROCEDURE: Operation Date: 06/06/25 08:30 Proposed Procedures p EGD with Biopsy [id number] G0121, Z12.11 R12(Not Applicable) - Rene Amaro MD s Colonoscopy(Not Applicable) - Rene Amaro MD Medications/Allergies* Home Medications ?Medication ?Instructions ?Recorded ?Confirmed ?Type cranberry 500 mg capsule 500 mg PO QAM 03/26/20 06/06/25 History Milk Thistle [place] Tabs 1 tab PO DAILY 06/13/21 06/06/25 History omega-3 fatty acids-fish oil 684 1 cap PO QAM 06/12/22 06/06/25 History mg-1,200 mg capsule,delayed release Allergies/Adverse Reactions Allergy/AdvReac Type Severity Reaction Status Date / Time lisinopril Allergy Intermediate Unknown Verified 06/06/25 07:16 adhesive tape Allergy Unknown Verified 06/06/25 07:16 codeine Allergy ALGY-Hives Verified 06/06/25 07:16 quinine Allergy ALGY-Chills Verified 06/06/25 07:16 tramadol Allergy ALGY-Wheezi Verified 06/06/25 07:16 ng Current Medications: Generic Name Dose Route Start Last Admin Trade Name Freq PRN Reason Stop Dose Admin Sodium Chloride 1,000 mls @ 15 mls/hr 06/06/25 07:12 06/06/25 07:29 Sodium Chloride 0.9% IV 06/07/25 07:11 15 mls/hr .Q24H PRN Administration COLONOSCOPY FLUIDS Pertinent History/Comorbid Conditions* Medical History (Updated 05/29/25 @ 10:33 by Baldev Colon MD) Immunization counseling Greater trochanteric pain syndrome of right lower extremity High risk medication use Osteoarthritis of hands, 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 KELLY positive Diabetes mellitus with hyperglycemia Renal mass, right Portal vein thrombosis Asthma Diabetes mellitus Insomnia Restless leg Overactive bladder Essential tremor Chronic kidney disease Environmental allergies Fibromyalgia Osteoarthritis Hypertension Anxiety and depression Hyperlipidemia Surgical History (Updated 11/28/22 @ 08:55 by HANNA Hedrick) H/O esophagogastroduodenoscopy (08/12/21) Status post colonoscopy (08/12/21) S/P bilateral cataract extraction S/P knee replacement S/P carpal tunnel release S/P cholecystectomy H/O section S/P hysterectomy S/P nasal surgery Family History (Updated 01/15/21 @ 12:49 by Rocio Christy RN) Father, AGE 81 Mother, AGE 85 Liver disease Mother Congestive heart failure (CHF) Mother Myocardial infarct Brother Father Cancer Mother Hypertension Brother Father Mother Social History Smoking and tobacco/nicotine status: never used tobacco/nicotine Second hand smoke exposure: No Alcohol intake: never Substance/Drug Use: never Adopted: No Caregiver/support person: No Lives independently: Yes Household members: spouse Housing: House Marital status: Number of children: 3 service: No Current occupational status: retired Current occupational exposures/hazards: No Pets and animals: No Do you think of yourself as: Straight/Heterosexual Current gender identity: Female Pertinent Exam Findings alert, oriented x 3, clear to auscultation bilaterally, regular rate & rhythm and procedure specific exam findings abdomen soft, nt, nd Recommendations Risks and benefits of procedure reviewed and Patient/family agree to proceed Surgery/Procedure today Coding Level of Care Code Acute Code for Chg Fwd
[2025-06-06 08:55] VITALS: BP 133/83; PULSE 85; RESP 18; TEMP 36.5; O2SAT 96
[2025-06-06 09:20] VITALS: BP 210/102; PULSE 84; RESP 18; O2SAT 97
--- NOTE | 2025-06-06 09:29 | ANE.PACU2 ---
Inpatient post-anesthesia follow up: Airway intact: Yes Vital signs: Temperature 97.7 F Pulse Rate 84 Respiratory Rate 18 Blood Pressure 210/102 Pulse Oximetry 97 Oxygen Delivery Me thod Room Air Oxygen Flow Rate Fraction of Inspir ed Oxygen Hydration adequate: Yes Nausea and vomiting: No Pain level: 1 Mental status: Baseline
== END 2025-06-06 09:29 | disposition home or self-care (01) ==
PROVIDERS: PCP Nurse Practitioner Family; Visit Provider Student in an Organized Health Care Education/Training Program
PROC: 0DJ08ZZ Inspection of Upper Intestinal Tract, Via Natural or Artificial Opening Endoscopic (ICD-10-PCS; principal; 2025-06-06 08:30)
PROC: 0DJD8ZZ Inspection of Lower Intestinal Tract, Via Natural or Artificial Opening Endoscopic (ICD-10-PCS; CPT 45378; 2025-06-06 08:30)
DX: Z12.11 Encounter for screening for malignant neoplasm of colon (principal); R12 Heartburn; K29.50 Unspecified chronic gastritis without bleeding; J45.909 Unspecified asthma, uncomplicated; M79.7 Fibromyalgia; E11.22 Type 2 diabetes mellitus with diabetic chronic kidney disease; I12.9 Hypertensive chronic kidney disease with stage 1 through stage 4 chronic kidney disease, or unspecified chronic kidney disease; N18.9 Chronic kidney disease, unspecified; F41.8 Other specified anxiety disorders; E78.5 Hyperlipidemia, unspecified; R01.1 Cardiac murmur, unspecified
CPT/HCPCS: 36416; 43239; 45378; 82962; 88305; 88342; J2704; J7030

== ENCOUNTER → 2025-08-23 10:27 | Outpatient (BNVA) | payer MEDICARE, OTHER, SELFPAY | PROVIDERS: PCP Nurse Practitioner Family; Visit Provider Internal Medicine Cardiovascular Disease | DX: R00.0 Tachycardia, unspecified (principal); I10 Essential (primary) hypertension; I34.0 Nonrheumatic mitral (valve) insufficiency; E78.5 Hyperlipidemia, unspecified; E11.65 Type 2 diabetes mellitus with hyperglycemia; J44.9 Chronic obstructive pulmonary disease, unspecified; Z87.891 Personal history of nicotine dependence; R07.9 Chest pain, unspecified; R94.31 Abnormal electrocardiogram [ECG] [EKG] | CPT/HCPCS: 93005; 99214 ==